=== PATIENT | male | born 1930 | race Caucasian/White ===

== ENCOUNTER 2017-11-04 17:50 | Inpatient (IN) | payer OTHER ==
[~2017-11-04] VITALS: Ht 172.7 cm; Wt 83.9 kg
[2017-11-04 17:56] VITALS: BP_SYST 134
[2017-11-04] MEDS ORDERED: NITROGLYCERIN 0.4 MG TAB.SUBL SL ONE ×2 (18:15→20:45)
[2017-11-04] MEDS ORDERED: ASPIRIN 325 MG TABLET PO ONE ×2 (18:15→20:45)
[2017-11-04 18:28] LABS: BASOPHILS % (AUTO) 0.3 % (0.0-2.0); EOSINOPHILS # (AUTO) 0.1 K/uL (0.0-0.4); EOSINOPHILS % (AUTO) 0.5 % (0.0-4.0); HEMATOCRIT 37.4 % (36-54); HEMOGLOBIN 12.5 g/dL (14.0-18.0); LYMPHOCYTES # (AUTO) 1.9 K/uL (1.0-5.5); LYMPHOCYTES % (AUTO) 17.1 % (20.5-51.5); MEAN CORPUSCULAR HEMOGLOBIN 29 pg (27-31); MEAN CORPUSCULAR HGB CONC 33 % (32-36); MEAN CORPUSCULAR VOLUME 88 fL (79.0-98.0); MONOCYTES # (AUTO) 0.6 K/uL (0.0-1.0); MONOCYTES % (AUTO) 5.1 % (1.7-9.3); NEUTROPHILS # (AUTO) 8.2 K/uL (1.8-7.7); PLATELET COUNT (AUTO) 304 K/uL (130-430); RED BLOOD CELL COUNT(AUTO) 4.24 MIL/uL (4.2-6.2); RED CELL DISTRIBUTION WIDTH 15.4 % (9.0-15.0); WHITE BLOOD COUNT (AUTO) 10.8 K/uL (4.8-10.8)
[2017-11-04 18:44] LABS: ANION GAP 5 (5-15); CHLORIDE 105 mmol/L (98-107); CREATININE 1.17 mg/dL (0.55-1.30); GLUCOSE 155 mg/dL (70-99); SODIUM SERUM 139 mmol/L (136-145); UREA NITROGEN, BLOOD 18 mg/dL (8-21)
[2017-11-04 18:50] LABS: ALANINE AMINOTRANSFERASE 24 U/L (12-78); ASPARTATE AMINOTRANSFERASE 19 U/L (10-37); INR 1.1 (0.80-1.20); PROTHROMBIN TIME 10.7 SECS (9.5-12.5); TOTAL BILIRUBIN 0.4 mg/dL (0.0-1.0)
[2017-11-04] MEDS ORDERED: CLOPIDOGREL BISULFATE 75 MG TABLET PO ONE (19:45)
[2017-11-04] MEDS ORDERED: ENOXAPARIN SODIUM 80 MG/0.8 ML SYRINGE SUBCUT ONE (19:45)
[2017-11-04 19:53] LABS: CHOLESTEROL 106 mg/dL (<200); HDL CHOLESTEROL 35 mg/dL (>45); LDL CHOLESTEROL 55 mg/dL (<100); TRIGLYCERIDES 123 mg/dL (30-150)
[2017-11-04] MEDS ORDERED: ASPI-1063 PO (20:32)
[2017-11-04] MEDS ORDERED: LIP40 PO (20:33)
[2017-11-04] MEDS ORDERED: BRIN10DR EACH EYE (20:33)
[2017-11-04] MEDS ORDERED: FERR-57 PO (20:34)
[2017-11-04] MEDS ORDERED: FINA5TAB3 PO (20:34)
[2017-11-04] MEDS ORDERED: TAMS-11 PO (20:37)
[2017-11-04] MEDS ORDERED: GLIM2TAB2 PO (20:38)
[2017-11-04] MEDS ORDERED: HYDR-1115 PO (20:38)
[2017-11-04] MEDS ORDERED: ISOS30TA6 PO (20:39)
[2017-11-04] MEDS ORDERED: NITSL SL (20:40)
[2017-11-04] MEDS ORDERED: ONDA4TAB5 PO (20:41)
[2017-11-04] MEDS ORDERED: CLOP75TA2 PO (20:42)
[2017-11-04] MEDS ORDERED: SITA50TA3 PO (20:43)
[2017-11-04] MEDS ORDERED: TIMO5DRO16 OP (20:43)
[2017-11-04] MEDS ORDERED: TRAM50TA92 PO (20:44)
[2017-11-04] MEDS ORDERED: ACET-2165 PO ×2 (20:45→20:46)
[2017-11-04] MEDS ORDERED: SSREG SUBCUT (20:59)
[2017-11-04 21:10] VITALS: BP_SYST 162
[2017-11-04] MEDS ORDERED: POTASSIUM CHLORIDE 20 MEQ TAB.PRT.SR PO ONE (21:30)
[2017-11-04] MEDS ORDERED: traMADol HCL HCL 50 MG TABLET (ULTRAM) PO PRN (21:30)
[2017-11-04] MEDS ORDERED: ONDANSETRON HCL 4 MG/2 ML VIAL IVP PRN (21:30)
[2017-11-04] MEDS ORDERED: ACETAMINOPHEN 325 MG TABLET PO PRN (21:30)
[2017-11-04] MEDS ORDERED: NITROGLYCERIN 0.4 MG TAB.SUBL SL PRN (21:30)
[2017-11-04] MEDS ORDERED: INSULIN REGULAR, HUMAN 100 UNITS/ML, 10 ML VIAL (novoLIN R) SUBCUT PRN (21:45)
[2017-11-04] MEDS: METOPROLOL TARTRATE 25 MG TABLET PO SCH (21:45)
[2017-11-04] MEDS: NITROGLYCERIN 1 INCH (GM) OINT. TP SCH (22:00)
[2017-11-04] MEDS ORDERED: METOPROLOL TARTRATE 25 MG TABLET ONE (23:41)
[2017-11-04] MEDS ORDERED: NITROGLYCERIN 1 INCH (GM) OINT. ONE (23:42)
[2017-11-04] MEDS ORDERED: POTASSIUM CHLORIDE 20 MEQ TAB.PRT.SR ONE (23:43)
[2017-11-05 02:06] VITALS: BP_SYST 162
[2017-11-05] MEDS: NITROGLYCERIN 1 INCH (GM) OINT. TP SCH ×3 (05:37→22:10)
[2017-11-05 05:51] LABS: BASOPHILS # (AUTO) 0.1 K/uL (0.0-0.2); EOSINOPHILS # (AUTO) 0.1 K/uL (0.0-0.4); EOSINOPHILS % (AUTO) 0.9 % (0.0-4.0); HEMATOCRIT 39.8 % (36-54); HEMOGLOBIN 12.9 g/dL (14.0-18.0); LYMPHOCYTES # (AUTO) 2.2 K/uL (1.0-5.5); LYMPHOCYTES % (AUTO) 35.7 % (20.5-51.5); MEAN CORPUSCULAR HEMOGLOBIN 29 pg (27-31); MEAN CORPUSCULAR HGB CONC 32 % (32-36); MEAN CORPUSCULAR VOLUME 88 fL (79.0-98.0); MONOCYTES # (AUTO) 0.6 K/uL (0.0-1.0); MONOCYTES % (AUTO) 9.3 % (1.7-9.3); NEUTROPHILS # (AUTO) 3.2 K/uL (1.8-7.7); NEUTROPHILS % (AUTO) 52.1 % (40.0-70.0); PLATELET COUNT (AUTO) 289 K/uL (130-430); RED BLOOD CELL COUNT(AUTO) 4.52 MIL/uL (4.2-6.2); RED CELL DISTRIBUTION WIDTH 15.7 % (9.0-15.0); WHITE BLOOD COUNT (AUTO) 6.3 K/uL (4.8-10.8)
[2017-11-05 05:53] LABS: ANION GAP 5 (5-15); CALCIUM 8.8 mg/dL (8.4-11.0); CHLORIDE 107 mmol/L (98-107); CREATININE 1.08 mg/dL (0.55-1.30); GLUCOSE 61 mg/dL (70-99); POTASSIUM 3.3 mmol/L (3.5-5.1); SODIUM SERUM 140 mmol/L (136-145); UREA NITROGEN, BLOOD 15 mg/dL (8-21)
[2017-11-05] MEDS ORDERED: DEXTROSE 50% JECT 50 ML DISP.SYRIN IVP PRN (06:15)
[2017-11-05 08:10] VITALS: BP_SYST 157
[2017-11-05] MEDS: hydrALAZINE HCL 25 MG TABLET PO SCH ×4 (08:34→22:09)
[2017-11-05] MEDS: METOPROLOL TARTRATE 25 MG TABLET PO SCH ×2 (08:35→22:09)
[2017-11-05] MEDS: ASPIRIN 81 MG TABLET(ECOTRIN) PO SCH (08:35)
[2017-11-05] MEDS: GLIMEPIRIDE 2 MG TABLET PO SCH (08:35)
[2017-11-05] MEDS: TIMOLOL MALEATE 0.25% OPHTHALMIC DROPS 5 ML OP SCH ×2 (08:36→22:17)
[2017-11-05] MEDS: FERROUS SULFATE 325 MG TABLET.DR PO SCH ×2 (08:36→22:10)
[2017-11-05] MEDS: FINASTERIDE 5 MG TABLET (PROSCAR) PO SCH (08:36)
[2017-11-05] MEDS: DORZOLAMIDE 2% OPHTHALMIC SOLN 5ML OP SCH ×3 (08:37→22:17)
[2017-11-05] MEDS ORDERED: *LOVENOX 1MG/KG Q12H/PHARMACY XX PRN (08:45)
[2017-11-05] MEDS ORDERED: POTASSIUM CHLORIDE 20 MEQ TAB.PRT.SR PO ONE (08:45)
[2017-11-05] MEDS ORDERED: BRINZOLAMIDE 1% EACH EYE SCH (09:00)
[2017-11-05] MEDS ORDERED: ENOXAPARIN SODIUM 30 MG/0.3 ML SYRINGE SUBCUT SCH (09:00)
[2017-11-05] MEDS ORDERED: CLOPIDOGREL BISULFATE 75 MG TABLET PO SCH (09:00)
[2017-11-05] MEDS ORDERED: ENOXAPARIN SODIUM 80 MG/0.8 ML SYRINGE SUBCUT ONE (09:30)
[2017-11-05 11:01] LABS: BILIRUBIN,URINE NEGATIVE (NEGATIVE); BLOOD, URINE 3+ (NEGATIVE); CLARITY/URINE HAZY (CLEAR); COLOR,URINE RED (YELLOW); GLUCOSE,URINE NEGATIVE (NEGATIVE); KETONES,URINE TRACE (NEGATIVE); LEUKOCYTE ESTERASE ,URINE 1+ (NEGATIVE); NITRITE, URINE POSITIVE (NEGATIVE); PH,URINE 6.5 (5.0-8.0); PROTEIN URINE 3+ (NEGATIVE)
[2017-11-05 11:18] LABS: RBC,URINE >100 /HPF (0-3)
[2017-11-05 11:19] LABS: BACTERIA,URINE FEW /HPF (None Seen); MUCUS,URINE None Seen /LPF (None Seen); WBC,URINE 0-3 /HPF (0-3)
[2017-11-05 12:52] VITALS: BP_SYST 123
[2017-11-05 16:00] VITALS: BP_SYST 127
[2017-11-05] MEDS ORDERED: DIATR MEGLU/DIATRIZ SOD 30 ML SOLUTION PO ONE (17:38)
[2017-11-05] MEDS ORDERED: IOHEXOL 100 ML IV ONE (19:00)
[2017-11-05 19:19] LABS: BILIRUBIN,URINE NEGATIVE (NEGATIVE); BLOOD, URINE 3+ (NEGATIVE); CLARITY/URINE SL CLOUDY (CLEAR); COLOR,URINE YELLOW (YELLOW); GLUCOSE,URINE NEGATIVE (NEGATIVE); KETONES,URINE NEGATIVE (NEGATIVE); LEUKOCYTE ESTERASE ,URINE 2+ (NEGATIVE); NITRITE, URINE NEGATIVE (NEGATIVE); PROTEIN URINE 2+ (NEGATIVE); UROBILINOGEN,URINE 0.2 (0.2-1.0)
[2017-11-05 19:44] LABS: BACTERIA,URINE FEW /HPF (None Seen); RBC,URINE >100 /HPF (0-3); WBC,URINE 20-50 /HPF (0-3)
[2017-11-05 19:45] LABS: MUCUS,URINE 1+ /LPF (None Seen)
[2017-11-05 19:46] LABS: URIC ACID CRYSTALS,URINE 0-10 /HPF (None Seen)
[2017-11-05] MEDS ORDERED: ENOXAPARIN SODIUM 80 MG/0.8 ML SYRINGE SUBCUT SCH (21:00)
[2017-11-05] MEDS: TAMSULOSIN HCL 0.4 MG CAP PO SCH (22:08)
[2017-11-05] MEDS: ATORVASTATIN 20 MG TABLET PO SCH (22:10)
[2017-11-06 00:20] VITALS: BP_SYST 147
[2017-11-06] MEDS: NITROGLYCERIN 1 INCH (GM) OINT. TP SCH ×3 (06:05→22:45)
[2017-11-06 08:06] LABS: BASOPHILS % (AUTO) 0.3 % (0.0-2.0); EOSINOPHILS % (AUTO) 0.5 % (0.0-4.0); HEMATOCRIT 36.7 % (36-54); HEMOGLOBIN 12.1 g/dL (14.0-18.0); LYMPHOCYTES # (AUTO) 2.2 K/uL (1.0-5.5); LYMPHOCYTES % (AUTO) 26.2 % (20.5-51.5); MEAN CORPUSCULAR HEMOGLOBIN 30 pg (27-31); MEAN CORPUSCULAR HGB CONC 33 % (32-36); MEAN CORPUSCULAR VOLUME 89 fL (79.0-98.0); MONOCYTES # (AUTO) 0.7 K/uL (0.0-1.0); MONOCYTES % (AUTO) 8.1 % (1.7-9.3); NEUTROPHILS # (AUTO) 5.5 K/uL (1.8-7.7); NEUTROPHILS % (AUTO) 64.9 % (40.0-70.0); PLATELET COUNT (AUTO) 290 K/uL (130-430); RED BLOOD CELL COUNT(AUTO) 4.11 MIL/uL (4.2-6.2); RED CELL DISTRIBUTION WIDTH 15.5 % (9.0-15.0); WHITE BLOOD COUNT (AUTO) 8.4 K/uL (4.8-10.8)
[2017-11-06 08:11] VITALS: BP_SYST 124
[2017-11-06 08:13] LABS: ALANINE AMINOTRANSFERASE 25 U/L (12-78); ALBUMIN 2.9 g/dL (3.4-4.8); ANION GAP 8 (5-15); ASPARTATE AMINOTRANSFERASE 23 U/L (10-37); CALCIUM 9.1 mg/dL (8.4-11.0); CHLORIDE 104 mmol/L (98-107); CHOLESTEROL 116 mg/dL (<200); CREATININE 1.02 mg/dL (0.55-1.30); GLUCOSE 95 mg/dL (70-99); HDL CHOLESTEROL 38 mg/dL (>45); LDL CHOLESTEROL 61 mg/dL (<100); POTASSIUM 3.5 mmol/L (3.5-5.1); SODIUM SERUM 137 mmol/L (136-145); TOTAL BILIRUBIN 0.4 mg/dL (0.0-1.0); TRIGLYCERIDES 112 mg/dL (30-150); UREA NITROGEN, BLOOD 10 mg/dL (8-21)
[2017-11-06] MEDS: ASPIRIN 81 MG TABLET(ECOTRIN) PO SCH (09:47)
[2017-11-06] MEDS: DORZOLAMIDE 2% OPHTHALMIC SOLN 5ML OP SCH ×3 (09:47→21:00)
[2017-11-06] MEDS: FINASTERIDE 5 MG TABLET (PROSCAR) PO SCH (09:47)
[2017-11-06] MEDS: TIMOLOL MALEATE 0.25% OPHTHALMIC DROPS 5 ML OP SCH ×2 (09:47→21:00)
[2017-11-06] MEDS: GLIMEPIRIDE 2 MG TABLET PO SCH (09:48)
[2017-11-06] MEDS: FERROUS SULFATE 325 MG TABLET.DR PO SCH ×2 (09:48→22:03)
[2017-11-06] MEDS: hydrALAZINE HCL 25 MG TABLET PO SCH ×4 (09:49→22:03)
[2017-11-06] MEDS: METOPROLOL TARTRATE 25 MG TABLET PO SCH ×2 (09:49→22:03)
[2017-11-06 12:24] VITALS: BP_SYST 112
[2017-11-06 16:28] VITALS: BP_SYST 90
[2017-11-06 20:00] VITALS: BP_SYST 133
[2017-11-06] MEDS: ATORVASTATIN 20 MG TABLET PO SCH (22:04)
[2017-11-06] MEDS: TAMSULOSIN HCL 0.4 MG CAP PO SCH (22:04)
[2017-11-07 00:57] VITALS: BP_SYST 129
[2017-11-07] MEDS: NITROGLYCERIN 1 INCH (GM) OINT. TP SCH ×3 (06:15→22:01)
[2017-11-07 07:53] LABS: ANION GAP 8 (5-15); CALCIUM 8.9 mg/dL (8.4-11.0); CHLORIDE 103 mmol/L (98-107); CREATININE 1.02 mg/dL (0.55-1.30); GLUCOSE 91 mg/dL (70-99); POTASSIUM 3.5 mmol/L (3.5-5.1); SODIUM SERUM 137 mmol/L (136-145); UREA NITROGEN, BLOOD 16 mg/dL (8-21)
[2017-11-07 08:00] VITALS: BP_SYST 113
[2017-11-07 08:06] LABS: % FREE PSA 29.9 % (.); FREE PSA 3.38 ng/mL
[2017-11-07 08:47] LABS: BASOPHILS % (AUTO) 0.4 % (0.0-2.0); EOSINOPHILS # (AUTO) 0.1 K/uL (0.0-0.4); EOSINOPHILS % (AUTO) 0.8 % (0.0-4.0); HEMATOCRIT 33.1 % (36-54); HEMOGLOBIN 10.8 g/dL (14.0-18.0); LYMPHOCYTES # (AUTO) 2.5 K/uL (1.0-5.5); LYMPHOCYTES % (AUTO) 28.9 % (20.5-51.5); MEAN CORPUSCULAR HEMOGLOBIN 29 pg (27-31); MEAN CORPUSCULAR HGB CONC 33 % (32-36); MEAN CORPUSCULAR VOLUME 88 fL (79.0-98.0); MONOCYTES # (AUTO) 0.7 K/uL (0.0-1.0); MONOCYTES % (AUTO) 7.9 % (1.7-9.3); NEUTROPHILS # (AUTO) 5.3 K/uL (1.8-7.7); PLATELET COUNT (AUTO) 255 K/uL (130-430); RED BLOOD CELL COUNT(AUTO) 3.76 MIL/uL (4.2-6.2); RED CELL DISTRIBUTION WIDTH 15.8 % (9.0-15.0); WHITE BLOOD COUNT (AUTO) 8.6 K/uL (4.8-10.8)
[2017-11-07] MEDS: DORZOLAMIDE 2% OPHTHALMIC SOLN 5ML OP SCH ×3 (11:05→21:58)
[2017-11-07] MEDS: TIMOLOL MALEATE 0.25% OPHTHALMIC DROPS 5 ML OP SCH ×2 (11:06→21:58)
[2017-11-07] MEDS: FERROUS SULFATE 325 MG TABLET.DR PO SCH ×2 (11:06→21:58)
[2017-11-07] MEDS: METOPROLOL TARTRATE 25 MG TABLET PO SCH ×2 (11:07→21:59)
[2017-11-07] MEDS: GLIMEPIRIDE 2 MG TABLET PO SCH (11:07)
[2017-11-07] MEDS: ASPIRIN 81 MG TABLET(ECOTRIN) PO SCH (11:07)
[2017-11-07] MEDS: FINASTERIDE 5 MG TABLET (PROSCAR) PO SCH (11:07)
[2017-11-07] MEDS: hydrALAZINE HCL 25 MG TABLET PO SCH ×4 (11:08→21:59)
[2017-11-07 12:36] VITALS: BP_SYST 111
[2017-11-07] MEDS ORDERED: CIPROFLOXACIN HCL 500 MG TABLET PO ONE (13:00)
[2017-11-07 16:21] VITALS: BP_SYST 117
[2017-11-07 20:00] VITALS: BP_SYST 108
[2017-11-07] MEDS: CIPROFLOXACIN HCL 500 MG TABLET PO SCH (22:00)
[2017-11-07] MEDS: TAMSULOSIN HCL 0.4 MG CAP PO SCH (22:00)
[2017-11-07] MEDS: ATORVASTATIN 20 MG TABLET PO SCH (22:01)
[2017-11-07 23:56] VITALS: BP_SYST 112
[2017-11-08] MEDS: NITROGLYCERIN 1 INCH (GM) OINT. TP SCH ×3 (05:25→21:04)
[2017-11-08 07:12] LABS: ANION GAP 5 (5-15); CALCIUM 9.1 mg/dL (8.4-11.0); CHLORIDE 105 mmol/L (98-107); GLUCOSE 96 mg/dL (70-99); POTASSIUM 3.7 mmol/L (3.5-5.1); SODIUM SERUM 139 mmol/L (136-145); UREA NITROGEN, BLOOD 17 mg/dL (8-21)
[2017-11-08 07:34] LABS: BASOPHILS % (AUTO) 0.2 % (0.0-2.0); EOSINOPHILS # (AUTO) 0.1 K/uL (0.0-0.4); EOSINOPHILS % (AUTO) 1.4 % (0.0-4.0); HEMATOCRIT 31.8 % (36-54); HEMOGLOBIN 10.7 g/dL (14.0-18.0); LYMPHOCYTES # (AUTO) 2.3 K/uL (1.0-5.5); LYMPHOCYTES % (AUTO) 35.8 % (20.5-51.5); MEAN CORPUSCULAR HEMOGLOBIN 30 pg (27-31); MEAN CORPUSCULAR HGB CONC 34 % (32-36); MEAN CORPUSCULAR VOLUME 88 fL (79.0-98.0); MONOCYTES # (AUTO) 0.6 K/uL (0.0-1.0); MONOCYTES % (AUTO) 9.1 % (1.7-9.3); NEUTROPHILS # (AUTO) 3.4 K/uL (1.8-7.7); NEUTROPHILS % (AUTO) 53.5 % (40.0-70.0); PLATELET COUNT (AUTO) 234 K/uL (130-430); RED CELL DISTRIBUTION WIDTH 15.8 % (9.0-15.0); WHITE BLOOD COUNT (AUTO) 6.4 K/uL (4.8-10.8)
[2017-11-08 07:56] VITALS: BP_SYST 122
[2017-11-08] MEDS: hydrALAZINE HCL 25 MG TABLET PO SCH ×4 (08:09→20:53)
[2017-11-08] MEDS: FINASTERIDE 5 MG TABLET (PROSCAR) PO SCH (08:10)
[2017-11-08] MEDS: FERROUS SULFATE 325 MG TABLET.DR PO SCH ×2 (08:10→20:52)
[2017-11-08] MEDS: ASPIRIN 81 MG TABLET(ECOTRIN) PO SCH (08:10)
[2017-11-08] MEDS: METOPROLOL TARTRATE 25 MG TABLET PO SCH (08:11)
[2017-11-08] MEDS: GLIMEPIRIDE 2 MG TABLET PO SCH (08:15)
[2017-11-08] MEDS: DORZOLAMIDE 2% OPHTHALMIC SOLN 5ML OP SCH ×3 (08:16→20:53)
[2017-11-08] MEDS: TIMOLOL MALEATE 0.25% OPHTHALMIC DROPS 5 ML OP SCH ×2 (08:16→20:53)
[2017-11-08 12:54] VITALS: BP_SYST 98
[2017-11-08] MEDS: CIPROFLOXACIN HCL 500 MG TABLET PO SCH ×2 (13:27→21:03)
[2017-11-08 15:55] VITALS: BP_SYST 109
[2017-11-08 20:00] VITALS: BP_SYST 128
[2017-11-08] MEDS: TAMSULOSIN HCL 0.4 MG CAP PO SCH (20:52)
[2017-11-08] MEDS: ATORVASTATIN 20 MG TABLET PO SCH (20:52)
[2017-11-09 00:19] VITALS: BP_SYST 138
[2017-11-09 04:30] VITALS: BP_SYST 144
[2017-11-09] MEDS: NITROGLYCERIN 1 INCH (GM) OINT. TP SCH ×3 (06:04→21:20)
[2017-11-09 08:00] VITALS: BP_SYST 98
[2017-11-09] MEDS: hydrALAZINE HCL 25 MG TABLET PO SCH ×4 (08:56→21:18)
[2017-11-09] MEDS: GLIMEPIRIDE 2 MG TABLET PO SCH (08:56)
[2017-11-09] MEDS: FERROUS SULFATE 325 MG TABLET.DR PO SCH ×2 (08:56→21:17)
[2017-11-09] MEDS: FINASTERIDE 5 MG TABLET (PROSCAR) PO SCH (08:56)
[2017-11-09] MEDS: ASPIRIN 81 MG TABLET(ECOTRIN) PO SCH (08:56)
[2017-11-09] MEDS: TIMOLOL MALEATE 0.25% OPHTHALMIC DROPS 5 ML OP SCH ×2 (08:57→21:15)
[2017-11-09] MEDS: DORZOLAMIDE 2% OPHTHALMIC SOLN 5ML OP SCH ×3 (08:57→21:16)
[2017-11-09] MEDS: CIPROFLOXACIN HCL 500 MG TABLET PO SCH ×2 (11:28→21:17)
[2017-11-09 13:09] VITALS: BP_SYST 106
[2017-11-09 15:04] LABS: PROSTATE SPECIFIC AG TOTAL 11.3 ng/mL (0.0-4.0)
[2017-11-09 16:18] VITALS: BP_SYST 118
[2017-11-09] MEDS: ATORVASTATIN 20 MG TABLET PO SCH (21:17)
[2017-11-09] MEDS: TAMSULOSIN HCL 0.4 MG CAP PO SCH (21:18)
[2017-11-10 01:20] VITALS: BP_SYST 118
[2017-11-10] MEDS: NITROGLYCERIN 1 INCH (GM) OINT. TP SCH ×2 (06:19→13:52)
[2017-11-10 08:25] VITALS: BP_SYST 152
[2017-11-10] MEDS: FINASTERIDE 5 MG TABLET (PROSCAR) PO SCH (08:46)
[2017-11-10] MEDS: TIMOLOL MALEATE 0.25% OPHTHALMIC DROPS 5 ML OP SCH (08:46)
[2017-11-10] MEDS: DORZOLAMIDE 2% OPHTHALMIC SOLN 5ML OP SCH ×2 (08:46→15:15)
[2017-11-10] MEDS: hydrALAZINE HCL 25 MG TABLET PO SCH ×3 (08:47→17:00)
[2017-11-10] MEDS: FERROUS SULFATE 325 MG TABLET.DR PO SCH (08:47)
[2017-11-10] MEDS: ASPIRIN 81 MG TABLET(ECOTRIN) PO SCH (08:47)
[2017-11-10] MEDS: GLIMEPIRIDE 2 MG TABLET PO SCH (08:48)
[2017-11-10] MEDS: CIPROFLOXACIN HCL 500 MG TABLET PO SCH (10:29)
[2017-11-10 12:02] VITALS: BP_SYST 104
[2017-11-10 16:07] VITALS: BP_SYST 113
[2017-11-10 16:16] VITALS: BP_SYST 113
== END 2017-11-10 19:00 | DRG 281 ==
LOC: SED 17:50 → STU 19:54
PROVIDERS: ADMIT Internal Medicine; ATTEND Internal Medicine
DX: I21.4 Non-ST elevation (NSTEMI) myocardial infarction (principal); E44.0 Moderate protein-calorie malnutrition; E11.40 Type 2 diabetes mellitus with diabetic neuropathy, unspecified; E11.51 Type 2 diabetes mellitus with diabetic peripheral angiopathy without gangrene; I65.23 Occlusion and stenosis of bilateral carotid arteries; I44.1 Atrioventricular block, second degree; I69.351 Hemiplegia and hemiparesis following cerebral infarction affecting right dominant side; N40.0 Benign prostatic hyperplasia without lower urinary tract symptoms; E78.5 Hyperlipidemia, unspecified; I10 Essential (primary) hypertension; F03.90 Unspecified dementia, unspecified severity, without behavioral disturbance, psychotic disturbance, mood disturbance, and anxiety; H40.9 Unspecified glaucoma; I35.0 Nonrheumatic aortic (valve) stenosis; R31.0 Gross hematuria; I25.10 Atherosclerotic heart disease of native coronary artery without angina pectoris; H54.8 Legal blindness, as defined in USA; I25.2 Old myocardial infarction; Z79.82 Long term (current) use of aspirin; Z79.02 Long term (current) use of antithrombotics/antiplatelets; Z79.899 Other long term (current) drug therapy; Z83.3 Family history of diabetes mellitus; Z79.4 Long term (current) use of insulin; Z68.28 Body mass index [BMI] 28.0-28.9, adult
CPT/HCPCS: 36415; 71010; 80048; 80053; 80061; 81000-TC; 82550-TC; 82962; 83880; 84153; 84484; 85025; 85610-TC; 85730-TC; 87081; 87086; 87186-TC; 93005; 93306; 96372; 97530-GP; 99285; J1650; J1815; J2405; Q9964; Q9967

== ENCOUNTER 2020-01-02 01:14 | Emergency (ER) | payer OTHER, MEDICAID ==
[~2020-01-02] VITALS: Ht 172.7 cm; Wt 74.8 kg
[~2020-01-02 01:14] MED LIST: ACET-2165 PO; ASPI-1153 PO; BRIN10DR EACH EYE; CLOP75TA2 PO; FERR-57 PO; FINA5TAB3 PO; GLIM2TAB2 PO; HYDR-4038 PO; ISOS30TA6 PO; LIP40 PO; NITSL SL; ONDA4TAB5 PO; SITA50TA3 PO; SSREG SUBCUT; TAMS-11 PO; TIMO5DRO16 OP; TRAM50TA92 PO
[2020-01-02 01:20] VITALS: BP_SYST 115
--- NOTE | 2020-01-02 02:51 | NUR ---
Placed in room 01 . Placed on precise winder, blood pressure machine and pulse oximeter. To gown for exam. Side rails up.
--- NOTE | 2020-01-02 03:20 | NUR ---
Patient AAO x 4 BIB BLS from [facility] with complaints of 7/10 urethral pain and hematuria. Barakat catheter was placed at approximately 2100 this evening. Urine output is around 200 mL in volume and appears red and cloudy. On inspection, there is no redness or swelling around urethra. Patient has history of HTN and DM2. Even chest and rise with respirations. Will continue to monitor.
--- NOTE | 2020-01-02 03:45 | NUR ---
ER Dr. Lamar at bedside examining patient.
[2020-01-02 04:55] VITALS: BP_SYST 135
[2020-01-02 05:03] LABS: BILIRUBIN,URINE 2+ (NEGATIVE); BLOOD, URINE 3+ (NEGATIVE); CLARITY/URINE CLOUDY (CLEAR); COLOR,URINE YELLOW (YELLOW); GLUCOSE,URINE NEGATIVE (NEGATIVE); KETONES,URINE TRACE (NEGATIVE); LEUKOCYTE ESTERASE ,URINE 3+ (NEGATIVE); NITRITE, URINE POSITIVE (NEGATIVE); PH,URINE 6.5 (5.0-8.0); PROTEIN URINE 3+ (NEGATIVE)
[2020-01-02 05:08] LABS: BACTERIA,URINE MANY /HPF (None Seen); MUCUS,URINE 2+ /LPF (None Seen); RBC,URINE >100 /HPF (0-3); WBC,URINE >100 /HPF (0-3)
[2020-01-02] MEDS ORDERED: cefTRIAXone 1 GM IVPB PREMIX 50 ML IV ONE (05:15)
[2020-01-02] MEDS ORDERED: cefTRIAXone 1 GM in LIDOCAINE 1%, 20 ML MDV 2.1 ML IM ONE (05:15)
--- NOTE | 2020-01-02 05:32 | NUR ---
Patient given written and verbal discharge instructions and verbalizes understanding. ER MD Lamar discussed with patient the results and treatment provided. Patient in stable condition. ID arm band removed. Rx of Keflex given. Patient educated on pain management and to follow up with PMD. Pain Scale 3. Opportunity for questions provided and answered. Medication side effect fact sheet provided.
--- NOTE | 2020-01-02 06:44 | NUR ---
Pt being transported back to [facility].
== END 2020-01-02 06:44 | disposition home or self-care (01) ==
LOC: SED 01:14
DX: N39.0 Urinary tract infection, site not specified (principal); N40.0 Benign prostatic hyperplasia without lower urinary tract symptoms; R31.9 Hematuria, unspecified; I10 Essential (primary) hypertension; E11.9 Type 2 diabetes mellitus without complications; Z79.82 Long term (current) use of aspirin; Z79.899 Other long term (current) drug therapy
CPT/HCPCS: 74176; 81000; 87086; 93005; 96372; 99285; J0696; J2001; 87186-TC

== ENCOUNTER 2020-01-24 01:37 | Emergency (ER) | payer OTHER, MEDICAID ==
[~2020-01-24] VITALS: Ht 185.4 cm; Wt 86.2 kg
[2020-01-24 01:37] VITALS: BP_SYST 118
[2020-01-24 03:16] LABS: BASOPHILS % (AUTO) 0.7 % (0.0-2.0); EOSINOPHILS # (AUTO) 0.1 K/uL (0.0-0.4); HEMATOCRIT 36.2 % (36-54); HEMOGLOBIN 11.6 g/dL (14.0-18.0); LYMPHOCYTES # (AUTO) 1.5 K/uL (1.0-5.5); LYMPHOCYTES % (AUTO) 32.5 % (20.5-51.5); MEAN CORPUSCULAR HEMOGLOBIN 26 pg (27-31); MEAN CORPUSCULAR HGB CONC 32 % (32-36); MEAN CORPUSCULAR VOLUME 82 fL (79.0-98.0); MONOCYTES # (AUTO) 0.5 K/uL (0.0-1.0); MONOCYTES % (AUTO) 10.5 % (1.7-9.3); NEUTROPHILS # (AUTO) 2.4 K/uL (1.8-7.7); NEUTROPHILS % (AUTO) 53.3 % (40.0-70.0); PLATELET COUNT (AUTO) 240 K/uL (130-430); RED CELL DISTRIBUTION WIDTH 23.1 % (9.0-15.0); WHITE BLOOD COUNT (AUTO) 4.5 K/uL (4.8-10.8)
[2020-01-24 03:27] LABS: ANION GAP 6 (5-15); CALCIUM 8.7 mg/dL (8.4-11.0); CHLORIDE 104 mmol/L (98-107); CREATININE 1.29 mg/dL (0.55-1.30); GLUCOSE 124 mg/dL (70-99); SODIUM SERUM 139 mmol/L (136-145); UREA NITROGEN, BLOOD 16 mg/dL (8-21)
[2020-01-24 03:54] LABS: BILIRUBIN,URINE NEGATIVE (NEGATIVE); BLOOD, URINE 2+ (NEGATIVE); CLARITY/URINE SL CLOUDY (CLEAR); COLOR,URINE YELLOW (YELLOW); GLUCOSE,URINE NEGATIVE (NEGATIVE); KETONES,URINE NEGATIVE (NEGATIVE); LEUKOCYTE ESTERASE ,URINE NEGATIVE (NEGATIVE); NITRITE, URINE POSITIVE (NEGATIVE); PROTEIN URINE NEGATIVE (NEGATIVE); UROBILINOGEN,URINE 0.2 (0.2-1.0)
[2020-01-24 04:00] LABS: BACTERIA,URINE MODERATE /HPF (None Seen); RBC,URINE 20-50 /HPF (0-3); WBC,URINE 0-3 /HPF (0-3)
[2020-01-24] MEDS ORDERED: POTASSIUM CHLORIDE 20 MEQ TAB.PRT.SR PO ONE (05:30)
[2020-01-24] MEDS ORDERED: KCL 40 mEq in 100 mL (PREMIX) 100 ML IV ONE (05:30)
[2020-01-24] MEDS ORDERED: NITROFURANTOIN MONOHYD/M-CRYST 100 MG CAPSULE PO ONE (05:30)
[2020-01-24] MEDS ORDERED: POTASSIUM CHLORIDE 20 MEQ/PKT PACKET PO ONE ×2 (05:45)
[2020-01-24] MEDS ORDERED: POTASSIUM CHLORIDE 20 MEQ/PKT PACKET ONE (05:53)
[2020-01-24 09:03] VITALS: BP_SYST 147
== END 2020-01-24 09:03 | disposition home or self-care (01) ==
LOC: SED 01:37
DX: T83.018A Breakdown (mechanical) of other urinary catheter, initial encounter (principal); R33.9 Retention of urine, unspecified; E11.9 Type 2 diabetes mellitus without complications; I10 Essential (primary) hypertension; Z79.899 Other long term (current) drug therapy; Z79.82 Long term (current) use of aspirin; Y92.89 Other specified places as the place of occurrence of the external cause
CPT/HCPCS: 36415; 80048; 81000-TC; 85025; 87086; 87186-TC; 99283

== ENCOUNTER 2020-08-23 17:36 | Inpatient (IN) | payer OTHER, MEDICAID, SELFPAY ==
[2020-08-23] VITALS (7 sets, daily range): BP systolic 63–111
[~2020-08-23] VITALS: Ht 182.9 cm; Wt 82.6 kg
[~2020-08-23 17:36] MED LIST changes: -ACET-2165 PO; +ACET325T PO; -ASPI-1153 PO; +ASPI-1393 PO; +GLIM2TAB PO; -GLIM2TAB2 PO
--- NOTE | 2020-08-23 17:36 | NUR ---
BROUGHT IN BY [facility], PLACED IN BED #1 AND ALL STAFF TO BEDSIDE. REPORT GIVEN TO SANDRA
--- NOTE | 2020-08-23 17:40 | NUR ---
PT BIB ACLS C/O ALTERED. PT GCS 6, SKIN PALE, NON-VERBAL, PALE, BILAT PUPILS PINPOINT, ARRIVED WITH [facility], GIVEN 1 DOSE OF NARCAN AND BREATHING TXGIVEN EN ROUTE. PER EMS PT HAD EMESIS TODAY, RECTAL BLEEDING AND NORAMLLY A&OX3.
--- NOTE | 2020-08-23 17:41 | NUR ---
PT ARRIVED WITH ZARATE IN PLACE AND LEFT ARM PIV #20
--- NOTE | 2020-08-23 17:44 | NUR ---
RT NOTES Pt was intubated with 7.5 ETT secured at 24cm lipline by ER Colorimetric changed to yellow, bilateral b/s/chestrise noted. Placed pt on vent AC 14 500 +5 100. Alarms are set and audible, sputum collected and endorsed to lab.
--- NOTE | 2020-08-23 17:48 | NUR ---
PT FULL CODE PER POLST. Patient medicated with 20mg ETOMIDATE of for sedation prior to placement of ET tube. Respiratory therapy at bedside prior to placement. Size ET tube placed by DR. SCHAFFER . Auscultation of breath sounds over bilateral chest wall. ET tube secured BY RT MEG PALACIOS PCXR ordered to check tube placement.
[2020-08-23] MEDS ORDERED: NOREPINEPHRINE 4 MG/4 ML VIAL IV ONE ×2 (18:00→22:49)
--- NOTE | 2020-08-23 18:02 | NUR ---
# 16 FR NG tube placed to RIGHT nare. Placement checked by auscultation of instilled air into stomach and aspiration of gastric contents. Tubing taped in place to prevent dislodging. Patient tolerated well, sedation given for intubation.
--- NOTE | 2020-08-23 18:06 | NUR ---
PROPOFOL TO 6.25 MCG/KG/MIN PER ORDER
[2020-08-23] MEDS ORDERED: PRO40 PO (18:10)
[2020-08-23] MEDS ORDERED: DORZ10DR20 OP (18:10)
[2020-08-23] MEDS ORDERED: PROPOFOL DRIP 100 ML IV ONE (18:10)
[2020-08-23] MEDS ORDERED: GLUC1KIT IM (18:10)
[2020-08-23] MEDS ORDERED: DOCU-144 PO (18:10)
[2020-08-23] MEDS ORDERED: UTI-STAT PO (18:10)
[2020-08-23] MEDS ORDERED: MULT-1089 PO (18:10)
[2020-08-23] MEDS ORDERED: NOR10 PO (18:10)
--- NOTE | 2020-08-23 18:10 | NUR ---
Medication reconciliation completed with information provided by EARL MARTÍNEZ. Any prior medication reconciliation on file was reviewed and corrected.
[2020-08-23] MEDS ORDERED: NACL 0.9% 1,000 ML IV ONE (18:15)
[2020-08-23] MEDS ORDERED: NACL 0.9% 2,000 ML IV ONE (18:15)
--- NOTE | 2020-08-23 18:15 | NUR ---
RT NOTES FIO2 TO 0.70 PER ABG RESULT, ER DR HILL.
[2020-08-23 18:18] LABS: BASOPHILS % (AUTO) 0.2 % (0.0-2.0); EOSINOPHILS % (AUTO) 0.1 % (0.0-4.0); HEMATOCRIT 33.6 % (36-54); HEMOGLOBIN 10.7 g/dL (14.0-18.0); LYMPHOCYTES # (AUTO) 0.5 K/uL (1.0-5.5); MEAN CORPUSCULAR HEMOGLOBIN 26 pg (27-31); MEAN CORPUSCULAR HGB CONC 32 % (32-36); MEAN CORPUSCULAR VOLUME 80 fL (79.0-98.0); MONOCYTES % (AUTO) 0.3 % (1.7-9.3); NEUTROPHILS # (AUTO) 5.5 K/uL (1.8-7.7); NEUTROPHILS % (AUTO) 91.4 % (40.0-70.0); PLATELET COUNT (AUTO) 251 K/uL (130-430); RED BLOOD CELL COUNT(AUTO) 4.19 MIL/uL (4.2-6.2); RED CELL DISTRIBUTION WIDTH 17.3 % (9.0-15.0)
[2020-08-23 18:24] LABS: ANION GAP 13 (5-15); CHLORIDE 106 mmol/L (98-107); CREATININE 2.02 mg/dL (0.55-1.30); GLUCOSE 163 mg/dL (70-99); SODIUM SERUM 140 mmol/L (136-145); UREA NITROGEN, BLOOD 23 mg/dL (8-21)
[2020-08-23 18:34] LABS: ALANINE AMINOTRANSFERASE 37 U/L (12-78); ALBUMIN 2.8 g/dL (3.4-4.8); ASPARTATE AMINOTRANSFERASE 59 U/L (10-37); TOTAL BILIRUBIN 0.6 mg/dL (0.0-1.0)
[2020-08-23 18:37] LABS: ALCOHOL, BLOOD < 3 mg/dL (<10)
[2020-08-23 18:41] LABS: POTASSIUM 2.9 mmol/L (3.5-5.1)
--- NOTE | 2020-08-23 19:01 | NUR ---
BP 81/54 MAP 64 NOREPINEPHERINE TO 4MCG/MIN
--- NOTE | 2020-08-23 19:15 | NUR ---
Jaren zhong in EDM - 08/23/20 at 1916 by SDEDTD BP 64/50 MAP 64 NOREPINEPHERINE TO 4MCG/MIN
--- NOTE | 2020-08-23 19:15 | NUR ---
P 64/50 MAP 55 NOREPINEPHERINE TO 6MCG/MIN
--- NOTE | 2020-08-23 19:15 | NUR ---
Jaren zhong in EDM - 08/23/20 at 1916 by SDEDTD P 64/50 MAP 55 NOREPINEPHERINE TO 4MCG/MIN
--- NOTE | 2020-08-23 19:25 | NUR ---
REPORT TO MARIELA MCINTOSH
[2020-08-23] MEDS: NOREPINEPHRINE BITARTRATE 32 MG in NS 218 ML IV PRN ×2 (19:41→21:49)
[2020-08-23] MEDS ORDERED: KCL 20 mEq in NS 1000 mL 1,000 ML IV ONE (19:45)
--- NOTE | 2020-08-23 20:05 | NUR ---
Pt remains in guarded condition, Dr. Hazel bedside for continuing eval
--- NOTE | 2020-08-23 20:58 | NUR ---
2nd lactic acid 7.4. Bill MCINTOSH notified
[2020-08-23] MEDS ORDERED: SODIUM BICARBONATE 8.4% JECT 100 MEQ in 0.45% NACL 1,000 ML IV SCH (21:00)
--- NOTE | 2020-08-23 21:00 | NUR ---
Titrating Levophed gtt to keep MAP above 65, currently at 16 mcg
[2020-08-23] MEDS ORDERED: cefTRIAXone 1 GM IVPB PREMIX 50 ML IV ONE ×2 (21:45→21:52)
--- NOTE | 2020-08-23 21:45 | NUR ---
RECEIVED FROM ER DEPT VIA JOSE R, AN 89 YO W MALE WITH DIAGNOSIS OF SEPTIC SHOCK AND ACUTE RENAL FAILURE. ORALLY INTUBATED. RIGHT NARES NGT CLAMPED. ZARATE CATH WITH BLOODY URINE NOTED. DR CHOUDHARY HERE, AWARE OF BLOODY URINE. ZARATE CATH DC'D. BLADDER SCAN DONE. CUDAY CATHETER INSERTED CONNECTED TO ZARATE BAG WITH LARGE AMOUNT OF DOMINGO URINE OBTAINED. BILATERAL SOFT WRIST RESTRAINTS IN PLACE. ON DIPRIVAN DRIP AT 10 MCG/KG/MIN. 1 MODERATE SOFT BROWN STOOL DEFECATED. CLEANED. FIDE CARE, ZARATE CARE, SKIN CARE, BACK CARE RENDERED. AFIB. ON LEVOPHED DRIP.
[2020-08-23] MEDS: KCL 20 mEq in D5NS 1000 mL 1,000 ML IV SCH ×2 (21:48→22:46)
--- NOTE | 2020-08-23 22:00 | NUR ---
Pt went to and from CT Scan, remains on IV gtts, well tolerated
--- NOTE | 2020-08-23 22:10 | NUR ---
DR. FUNMI WALSH ON UNIT AT THIS TIME. NEW ORDERS RECEIVED AND WILL BE CARRIED OUT ORDERED.
--- NOTE | 2020-08-23 22:10 | NUR ---
COUDE FC PT CAME ON UNIT WITH FC, CATHETER NOTED WITH MINIMAL BLOODY URINE. BLADDER SCAN PERFORMED AND 500 CC RESIDUAL NOTED IN BLADDER. DR. CHOUDHARY IS ON UNIT AND GAVE VERBAL ORDERS TO REMOVE ZARATE CATHETER AND INSERT A NEW ONE WITH COUDE TIP. WILL CARRY OUT ORDERED.
[2020-08-23] MEDS ORDERED: GLUCAGON,HUMAN RECOMBINANT 1 MG VIAL IM PRN (22:15)
[2020-08-23] MEDS ORDERED: NITROGLYCERIN 0.4 MG TAB.SUBL SL SCH (22:15)
--- NOTE | 2020-08-23 22:20 | NUR ---
Patient will be admitted to care of Dr. Gonzalez. Admitted to ICU unit. Will go to room ICU 7. Belongings list completed. Complete and up to date summary report printed. SBAR report to be given at bedside with opportunity for questions.
--- NOTE | 2020-08-23 22:20 | NUR ---
Transfer to ICU via ACLS protocol. Licensed nurse present. IV present no signs or symptoms of infiltration.
--- NOTE | 2020-08-23 22:30 | NUR ---
DR BUTTS HERE. LEVOPHED TITRATED. ORDERS GIVEN AND IMPLEMENTED.
[2020-08-23] MEDS: MEROPENEM 500 MG in NS 50 ML IV SCH (22:47)
[2020-08-23] MEDS ORDERED: MEROPENEM 500 MG VIAL IV ONE (22:54)
[2020-08-23] MEDS: PANTOPRAZOLE SODIUM 40 MG/VIAL (PROTONIX) IVP SCH (22:55)
[2020-08-23] MEDS ORDERED: KCL 20 mEq in D5NS 1000 mL 1,000 ML IV ONE (22:56)
[2020-08-23] MEDS ORDERED: SUCCINYLCHOLINE CHLORIDE 20 MG/ML(QUELICIN) IVP ONE (23:00)
[2020-08-23] MEDS ORDERED: ETOMIDATE 20 MG/ 10 ML VIAL (AMIDATE) IVP ONE (23:00)
[2020-08-23] MEDS ORDERED: VANCOMYCIN HCL 1 GM/NS PREMIX 250 ML IV ONE (23:00)
--- NOTE | 2020-08-23 23:04 | NUR ---
CONSULT: DR. BENJAMÍN BUTTS IS AT BEDSIDE FOR CONSULT AT THIS TIME. ORDERS RECEIVED AND WILL BE CARRIED OUT ORDERED.
[2020-08-23] MEDS ORDERED: PANTOPRAZOLE SODIUM 40 MG/VIAL (PROTONIX) ONE (23:14)
--- NOTE | 2020-08-23 23:30 | NUR ---
FIO2 DECREASED TO 50%.
[2020-08-24] VITALS (24 sets, daily range): BP systolic 59–129
--- NOTE | 2020-08-24 | NUR ---
ACCU-CHEK 103, NO INSULIN DUE PER SLIDING SCALE COV. BP LABILE, LEVOPHED TITRATED. CIRCULATION CHECK DONE, PULSES PALPABLE. ORAL CARE DONE. SUCTIONED.
[2020-08-24 00:34] LABS: INR 1.2 (0.80-1.20); PROTHROMBIN TIME 12.6 SECS (9.5-12.5)
[2020-08-24] MEDS ORDERED: NOREPINEPHRINE 4 MG/4 ML VIAL IV ONE (00:48)
--- NOTE | 2020-08-24 01:00 | NUR ---
ZARATE CARE. 1 SMEAR OF STOOL DEFECATED, CLEANED.
[2020-08-24] MEDS ORDERED: KCL 20 mEq in D5NS 1000 mL 1,000 ML IV ONE (01:04)
[2020-08-24] MEDS ORDERED: VANCOMYCIN HCL 1000 MG/VIAL IV ONE (01:04)
[2020-08-24] MEDS ORDERED: MEROPENEM 500 MG VIAL IV ONE (01:04)
[2020-08-24 01:07] LABS: CKMB RELATIVE INDEX 4.7 (0.0-2.9); CREATINE KINASE MB 70.3 ng/mL (0-3.6)
[2020-08-24] MEDS: INSULIN REGULAR, HUMAN 100 UNITS/ML, 10 ML VIAL (humuLIN R) SUBCUT PRN (01:07)
--- NOTE | 2020-08-24 01:28 | NUR ---
DR. BENJAMÍN WALSH PAGED AT THIS TIME REGARDING CRITICAL LABS. SPOKE WITH SANDRA AT THE EXCHANGE.
--- NOTE | 2020-08-24 01:33 | NUR ---
DR. BENJAMÍN WALSH CALLED BACK AND MADE AWARE OF LACTIC ACID 6.9 AND TROPONIN 1.279. PER EKG IN AM, CMP, MAG, PHOS IN AM, AND CONSULT DRY HOUSE OPERATOR DR. DIEZ. WILL CARRY OUT ORDERED.
--- NOTE | 2020-08-24 01:52 | NUR ---
CONSULTATION PAGED/CALLED: DR. SHAH Reason for Consultation: RENAL STONES Person Who was Notified: SANDRA Consulting Physician: DR. SHAH - DR. JARETH VALENTINO (LENS EDGER FOR DR. SHAH) Crab Butcher Specialty: UROLOGY Ordering Physician: DR. CHOUDHARY
--- NOTE | 2020-08-24 01:52 | NUR ---
CONSULTATION PAGED/CALLED: DR. VALENCIA Reason for Consultation: SEPSIS Person Who was Notified: SANDRA Consulting Physician: DR. VALENCIA Auto Emissions Technician Specialty: ID Ordering Physician: DR. CHOUDHARY
--- NOTE | 2020-08-24 01:52 | NUR ---
CONSULTATION PAGED/CALLED: DR. DIEZ Reason for Consultation: ELEVATED TROPONIN Person Who was Notified: SANDRA Consulting Physician: DR. DIEZ Yarn Dry Room Worker Specialty: CARDIO Ordering Physician: DR. BUTTS
[2020-08-24] MEDS: MEROPENEM 500 MG in NS 50 ML IV SCH (06:00)
--- NOTE | 2020-08-24 07:30 | NUR ---
Opening Note Received bedside report from endorsing RN for continuation of care. Received patient intubated and sedated, resting in bed. No signs or symptoms of acute distress noted. Fall and safety precautions in place.
[2020-08-24] MEDS ORDERED: NS 500 ML IV ONE (07:45)
--- NOTE | 2020-08-24 07:50 | NUR ---
Dr. Esparza at bedside examining patient. New orders received.
[2020-08-24 08:19] LABS: HEMATOCRIT 36.7 % (36-54); HEMOGLOBIN 11.6 g/dL (14.0-18.0); MEAN CORPUSCULAR HEMOGLOBIN 25 pg (27-31); MEAN CORPUSCULAR HGB CONC 32 % (32-36); MEAN CORPUSCULAR VOLUME 79 fL (79.0-98.0); PLATELET COUNT (AUTO) 199 K/uL (130-430); RED BLOOD CELL COUNT(AUTO) 4.62 MIL/uL (4.2-6.2); RED CELL DISTRIBUTION WIDTH 17.4 % (9.0-15.0); WHITE BLOOD COUNT (AUTO) 13.3 K/uL (4.8-10.8)
[2020-08-24] MEDS: ISOSORBIDE MONONITRATE 30 MG TAB.ER.24H PO SCH (08:40)
[2020-08-24] MEDS: DOCUSATE SODIUM 100 MG CAPSULE PO SCH (08:40)
[2020-08-24] MEDS: PANTOPRAZOLE SODIUM 40 MG/VIAL (PROTONIX) IVP SCH ×2 (08:40→20:54)
[2020-08-24] MEDS: FINASTERIDE 5 MG TABLET (PROSCAR) PO SCH (08:40)
[2020-08-24] MEDS: MULTIVITAMINS TAB 1 TABLET PO SCH (08:40)
[2020-08-24] MEDS: ASPIRIN 81 MG TABLET(ECOTRIN) PO SCH (08:40)
[2020-08-24] MEDS: DORZOLAMIDE 2% OPHTHALMIC SOLN 5ML OP SCH ×3 (08:41→20:30)
[2020-08-24 08:43] LABS: ALANINE AMINOTRANSFERASE 89 U/L (12-78); ALBUMIN 2.5 g/dL (3.4-4.8); ANION GAP 15 (5-15); ASPARTATE AMINOTRANSFERASE 102 U/L (10-37); CALCIUM 7.4 mg/dL (8.4-11.0); CHLORIDE 112 mmol/L (98-107); CREATININE 1.88 mg/dL (0.55-1.30); GLUCOSE 86 mg/dL (70-99); POTASSIUM 3.1 mmol/L (3.5-5.1); SODIUM SERUM 145 mmol/L (136-145); TOTAL BILIRUBIN 0.8 mg/dL (0.0-1.0); UREA NITROGEN, BLOOD 29 mg/dL (8-21)
--- NOTE | 2020-08-24 09:05 | NUR ---
Nutrition Update Mu Scale 15 noted. Pt admitted for septic shock. Diet: N/A BMI: 25.1 kg/m2 RD to follow per nutrition care standards.
--- NOTE | 2020-08-24 09:08 | NUR ---
2D ECHO 2D ECHO being done at bedside by color laboratory technician.
[2020-08-24] MEDS ORDERED: POTASSIUM CHLORIDE 20 MEQ/PKT PACKET PO ONE (09:15)
--- NOTE | 2020-08-24 09:19 | NUR ---
Spoke with Dr. Fernandez regarding ABG results. New orders received.
[2020-08-24] MEDS: KCL 20 mEq in D5NS 1000 mL 1,000 ML IV SCH ×3 (09:43→23:16)
[2020-08-24 09:52] LABS: CKMB RELATIVE INDEX 1.2 (0.0-2.9); CREATINE KINASE MB 16.6 ng/mL (0-3.6)
[2020-08-24] MEDS: PROPOFOL DRIP 100 ML IV PRN ×2 (10:54→23:18)
[2020-08-24 11:26] LABS: BAND % (MANUAL) 37 % (0-6); LYMPHOCYTES % (MANUAL) 2 % (20-46); MONOCYTES % (MANUAL) 3 % (0-11)
[2020-08-24 11:27] LABS: BASOPHILS % (MANUAL) 0 % (0-2); EOSINOPHILS % (MANUAL) 0 % (0-7); METAMYELOCYTES % 6 % (0-0)
[2020-08-24] MEDS: NOREPINEPHRINE BITARTRATE 32 MG in NS 218 ML IV PRN (12:40)
--- NOTE | 2020-08-24 12:55 | NUR ---
Dr. Ley in to see patient. New orders received.
--- NOTE | 2020-08-24 13:20 | NUR ---
Dr. Bird at bedside examining patient. No new orders.
--- NOTE | 2020-08-24 15:37 | NUR ---
PICC Line Placement PICC Line being done at bedside by PICC line RN.
[2020-08-24 16:48] LABS: BILIRUBIN,URINE 2+ (NEGATIVE); BLOOD, URINE 3+ (NEGATIVE); CLARITY/URINE TURBID (CLEAR); COLOR,URINE BROWN (YELLOW); GLUCOSE,URINE NEGATIVE (NEGATIVE); KETONES,URINE TRACE (NEGATIVE); LEUKOCYTE ESTERASE ,URINE 2+ (NEGATIVE); NITRITE, URINE POSITIVE (NEGATIVE); PH,URINE 8.5 (5.0-8.0); PROTEIN URINE 2+ (NEGATIVE)
[2020-08-24] MEDS: PIPERACILLIN/TAZO 2.25G/DEX-IS 50 ML IV SCH ×2 (17:01→23:50)
--- NOTE | 2020-08-24 17:40 | NUR ---
CHG/BM Patient had large soft BM. CHG bath given and pericare done, bed linens changed. Patient tolerated well. No signs or symptoms of acute distress noted.
[2020-08-24 17:47] LABS: BACTERIA,URINE MANY /HPF (None Seen); RBC,URINE >100 /HPF (0-3); TRIPLE PHOSPHATE CRYSTAL,UR 0-10 /HPF (None Seen); WBC,URINE >100 /HPF (0-3)
[2020-08-24 17:48] LABS: COARSE GRANULAR CASTS,URINE 0-10 /LPF (None Seen); URINE AMORPHOUS PHOSPHATES 4+ /HPF (None Seen)
--- NOTE | 2020-08-24 19:00 | NUR ---
Closing Note Endorsed bedside report to oncoming RN using SBAR approach for continuation of care.
--- NOTE | 2020-08-24 19:30 | NUR ---
Opening note: Report received from day RN. Assuming care now.
[2020-08-24] MEDS: ENOXAPARIN SODIUM 30 MG/0.3 ML SYRINGE SUBCUT SCH (20:53)
[2020-08-24] MEDS: TAMSULOSIN HCL 0.4 MG CAP PO SCH (20:54)
--- NOTE | 2020-08-24 22:00 | NUR ---
Dr Gonzalez at bedside. No new orders.
[2020-08-24] MEDS ORDERED: VANCOMYCIN HCL 1,000 MG in NS 250 ML IV SCH (23:00)
--- NOTE | 2020-08-24 23:00 | NUR ---
Dr Fernandez at bedside. Wants to begin tubefeeding. Order received and verified.
[2020-08-25] VITALS (35 sets, daily range): BP systolic 80–138
[2020-08-25 06:00] LABS: BASOPHILS % (AUTO) 0.1 % (0.0-2.0); EOSINOPHILS # (AUTO) 0.1 K/uL (0.0-0.4); EOSINOPHILS % (AUTO) 0.5 % (0.0-4.0); HEMATOCRIT 35.6 % (36-54); HEMOGLOBIN 11.3 g/dL (14.0-18.0); LYMPHOCYTES # (AUTO) 0.6 K/uL (1.0-5.5); LYMPHOCYTES % (AUTO) 3.6 % (20.5-51.5); MEAN CORPUSCULAR HEMOGLOBIN 25 pg (27-31); MEAN CORPUSCULAR HGB CONC 32 % (32-36); MEAN CORPUSCULAR VOLUME 79 fL (79.0-98.0); MONOCYTES # (AUTO) 1.1 K/uL (0.0-1.0); MONOCYTES % (AUTO) 6.7 % (1.7-9.3); NEUTROPHILS # (AUTO) 15.2 K/uL (1.8-7.7); PLATELET COUNT (AUTO) 114 K/uL (130-430); RED BLOOD CELL COUNT(AUTO) 4.49 MIL/uL (4.2-6.2); RED CELL DISTRIBUTION WIDTH 17.6 % (9.0-15.0)
[2020-08-25 06:02] LABS: ALANINE AMINOTRANSFERASE 64 U/L (12-78); ALBUMIN 2.2 g/dL (3.4-4.8); ANION GAP 15 (5-15); ASPARTATE AMINOTRANSFERASE 60 U/L (10-37); CALCIUM 7.1 mg/dL (8.4-11.0); CHLORIDE 112 mmol/L (98-107); CREATININE 2.18 mg/dL (0.55-1.30); GLUCOSE 189 mg/dL (70-99); POTASSIUM 4.7 mmol/L (3.5-5.1); SODIUM SERUM 146 mmol/L (136-145); TOTAL BILIRUBIN 0.7 mg/dL (0.0-1.0); UREA NITROGEN, BLOOD 40 mg/dL (8-21)
[2020-08-25] MEDS: PIPERACILLIN/TAZO 2.25G/DEX-IS 50 ML IV SCH ×3 (06:19→18:22)
[2020-08-25] MEDS: INSULIN REGULAR, HUMAN 100 UNITS/ML, 10 ML VIAL (humuLIN R) SUBCUT PRN ×3 (06:21→18:24)
[2020-08-25 07:50] LABS: NEUTROPHILS % (AUTO) 89.1 % (40.0-70.0)
--- NOTE | 2020-08-25 08:44 | NUR ---
Dr. Esparza at bedside examining patient. New orders received.
[2020-08-25] MEDS ORDERED: NS 500 ML IV ONE (08:45)
[2020-08-25] MEDS: PANTOPRAZOLE SODIUM 40 MG/VIAL (PROTONIX) IVP SCH ×2 (09:12→21:26)
[2020-08-25] MEDS: ASPIRIN 81 MG TABLET(ECOTRIN) PO SCH (09:12)
[2020-08-25] MEDS: ISOSORBIDE MONONITRATE 30 MG TAB.ER.24H PO SCH (09:13)
[2020-08-25] MEDS: DOCUSATE SODIUM 100 MG CAPSULE PO SCH (09:13)
[2020-08-25] MEDS: DORZOLAMIDE 2% OPHTHALMIC SOLN 5ML OP SCH ×3 (09:13→20:45)
[2020-08-25] MEDS: FINASTERIDE 5 MG TABLET (PROSCAR) PO SCH (09:13)
[2020-08-25] MEDS: MULTIVITAMINS TAB 1 TABLET PO SCH (09:13)
[2020-08-25] MEDS: KCL 20 mEq in D5NS 1000 mL 1,000 ML IV SCH ×3 (09:14→21:35)
--- NOTE | 2020-08-25 09:45 | NUR ---
ABG results relayed to Dr. Fernandez. With orders carried out. Will call RT for vent change.
--- NOTE | 2020-08-25 09:50 | NUR ---
RT NOTE: 0950 Pt placed on SIMV 12, PS 10, and PEEP [address] Fernandez. Pt is tolerating vent change well. Will draw ABG after 2 hours if pt tolerates setting. Addendum: 08/25/20 at 1013 by Lynn Reynolds RT Amended: Links added.
[2020-08-25] MEDS: PROPOFOL DRIP 100 ML IV PRN ×2 (10:50→21:34)
[2020-08-25] MEDS: NOREPINEPHRINE BITARTRATE 32 MG in NS 218 ML IV PRN (10:51)
--- NOTE | 2020-08-25 14:50 | NUR ---
Dr. Gonzalez at bedside examining patient. New orders received.
--- NOTE | 2020-08-25 14:54 | NUR ---
Dietitian Recommendations * Recommend continuing Glucerna 1.2 at 60 ml/hr (goal rate), Free Water Flush: 10 cc Q8h via NGT Provides: 1728 kcal/day, 86 gm protein/day, and 1159 ml free water/day Meets: 90% of estimated caloric needs and 85% of upper end of estimated protein needs LP, RD Please refer to Nutrition Assessment for details. Addendum: 08/25/20 at [address] Amended: Links added.
--- NOTE | 2020-08-25 15:57 | NUR ---
Dr. Ley in to see patient. No new orders.
--- NOTE | 2020-08-25 19:00 | NUR ---
Opening note: Report received from day RN. Assuming care now.
--- NOTE | 2020-08-25 19:33 | NUR ---
Closing Note Endorsed bedside report to oncoming RN using SBAR approach for continuation of care.
[2020-08-25] MEDS: TAMSULOSIN HCL 0.4 MG CAP PO SCH (21:26)
[2020-08-25] MEDS: ENOXAPARIN SODIUM 30 MG/0.3 ML SYRINGE SUBCUT SCH (21:27)
[2020-08-25] MEDS: D5/0.45 NS 1,000 ML IV SCH (22:54)
[2020-08-26] VITALS (35 sets, daily range): BP systolic 97–148
[2020-08-26] MEDS: PIPERACILLIN/TAZO 2.25G/DEX-IS 50 ML IV SCH ×4 (00:38→18:35)
[2020-08-26 06:44] LABS: BASOPHILS % (AUTO) 0.2 % (0.0-2.0); EOSINOPHILS % (AUTO) 0.1 % (0.0-4.0); HEMATOCRIT 29.7 % (36-54); HEMOGLOBIN 9.6 g/dL (14.0-18.0); LYMPHOCYTES # (AUTO) 0.8 K/uL (1.0-5.5); LYMPHOCYTES % (AUTO) 7.3 % (20.5-51.5); MEAN CORPUSCULAR HEMOGLOBIN 26 pg (27-31); MEAN CORPUSCULAR HGB CONC 32 % (32-36); MEAN CORPUSCULAR VOLUME 79 fL (79.0-98.0); MONOCYTES # (AUTO) 0.6 K/uL (0.0-1.0); MONOCYTES % (AUTO) 5.5 % (1.7-9.3); NEUTROPHILS # (AUTO) 9.1 K/uL (1.8-7.7); NEUTROPHILS % (AUTO) 86.9 % (40.0-70.0); PLATELET COUNT (AUTO) 72 K/uL (130-430); RED BLOOD CELL COUNT(AUTO) 3.76 MIL/uL (4.2-6.2); RED CELL DISTRIBUTION WIDTH 18.1 % (9.0-15.0); WHITE BLOOD COUNT (AUTO) 10.5 K/uL (4.8-10.8)
[2020-08-26 07:18] LABS: ANION GAP 10 (5-15); CALCIUM 7.3 mg/dL (8.4-11.0); CHLORIDE 117 mmol/L (98-107); CREATININE 1.74 mg/dL (0.55-1.30); GLUCOSE 114 mg/dL (70-99); POTASSIUM 4.2 mmol/L (3.5-5.1); SODIUM SERUM 146 mmol/L (136-145); UREA NITROGEN, BLOOD 47 mg/dL (8-21)
--- NOTE | 2020-08-26 08:00 | NUR ---
Initial notes Assume care, patient is intubated and tolerating current vent settings right now, also tolerating feeding. oral, care done, repositioned. on bilateral wrist restraints. No distress noted.
[2020-08-26] MEDS: DOCUSATE SODIUM 100 MG CAPSULE PO SCH (08:51)
[2020-08-26] MEDS: DORZOLAMIDE 2% OPHTHALMIC SOLN 5ML OP SCH ×3 (08:51→20:13)
[2020-08-26] MEDS: PANTOPRAZOLE SODIUM 40 MG/VIAL (PROTONIX) IVP SCH ×2 (08:51→21:32)
[2020-08-26] MEDS: MULTIVITAMINS TAB 1 TABLET PO SCH (08:52)
[2020-08-26] MEDS: ISOSORBIDE MONONITRATE 30 MG TAB.ER.24H PO SCH (08:52)
[2020-08-26] MEDS: ASPIRIN 81 MG TABLET(ECOTRIN) PO SCH (08:52)
[2020-08-26] MEDS: FINASTERIDE 5 MG TABLET (PROSCAR) PO SCH (08:52)
[2020-08-26] MEDS ORDERED: NS 500 ML IV ONE (10:15)
[2020-08-26] MEDS: PROPOFOL DRIP 100 ML IV PRN (10:24)
--- NOTE | 2020-08-26 10:30 | NUR ---
Notes Seen by Dr. Esparza, Blood pressure on the 90's. Md ordered NS bolus of 500ml.
[2020-08-26] MEDS: D5/0.45 NS 1,000 ML IV SCH ×2 (11:38→18:30)
[2020-08-26] MEDS ORDERED: MUPIROCIN 2% TOPICAL OINTMENT 22 GM NS ONE (14:00)
--- NOTE | 2020-08-26 15:20 | NUR ---
Notes Spoke to Dr. Roblero and made aware of blood culture results.
--- NOTE | 2020-08-26 18:53 | NUR ---
closing notes Open eyes at times, tolerating feeding and vent settings. No acute distress noted. Will endorse
[2020-08-26] MEDS: MUPIROCIN 2% TOPICAL OINTMENT 22 GM NS SCH (20:12)
[2020-08-26] MEDS: TAMSULOSIN HCL 0.4 MG CAP PO SCH (21:31)
[2020-08-26] MEDS: ENOXAPARIN SODIUM 30 MG/0.3 ML SYRINGE SUBCUT SCH (21:32)
[2020-08-27] VITALS (27 sets, daily range): BP systolic 89–149
[2020-08-27] MEDS: PIPERACILLIN/TAZO 2.25G/DEX-IS 50 ML IV SCH ×2 (00:41→06:10)
[2020-08-27] MEDS: D5/0.45 NS 1,000 ML IV SCH ×2 (04:56→13:06)
--- NOTE | 2020-08-27 07:50 | NUR ---
AM ASSESSMENT. PT OPENED HIS EYES TO VERBAL STIMULI, WRISTS RESTRAINTS OFF AND ON, REPOSITIONED PT IN BED, SKIN INTACT AROUND THE WRISTS, ORAL CARE DONE, SOME RESISTANCE FROM THE PATIENT, FEEDING VIA NGT AT 60 ML PER HR CONTINUES.
[2020-08-27] MEDS: MUPIROCIN 2% TOPICAL OINTMENT 22 GM NS SCH ×2 (10:23→21:00)
[2020-08-27] MEDS: DOCUSATE SODIUM 100 MG CAPSULE PO SCH (10:24)
[2020-08-27] MEDS: MULTIVITAMINS TAB 1 TABLET PO SCH (10:24)
[2020-08-27] MEDS: PANTOPRAZOLE SODIUM 40 MG/VIAL (PROTONIX) IVP SCH ×2 (10:24→21:33)
[2020-08-27] MEDS: ISOSORBIDE MONONITRATE 30 MG TAB.ER.24H PO SCH (10:24)
[2020-08-27] MEDS: DORZOLAMIDE 2% OPHTHALMIC SOLN 5ML OP SCH ×3 (10:24→21:00)
[2020-08-27] MEDS: ASPIRIN 81 MG TABLET(ECOTRIN) PO SCH (10:25)
[2020-08-27] MEDS: FINASTERIDE 5 MG TABLET (PROSCAR) PO SCH (12:59)
--- NOTE | 2020-08-27 18:20 | NUR ---
NURSING. PT INCONTINENT OF BOWEL, CLEANSED AREA WITH SOAPY TOWEL, CHG WIPES USED TO BODY AND EXTREMITIES, CLEAN SHEETS PROVIDED, EDEMA TO ALL EXTREMITIES, PILLOW PLACED UNDER HIS LEGS, REPOSITIONED IN BED FOR COMFORT.
--- NOTE | 2020-08-27 19:15 | NUR ---
change of shift.pt.presents isolation status;contact.pt.presents ett/ng-tube;rt.nares;intact;patent. ng-tube feed infusing;glucerna.1.2. pt.presents picc line;location;rt.bicept.intact;patent iv fluids infusing.pt.presents stinson cath intact;patent urine content present.ventilator present.pt.presents c-pap status.general status stable.respiratory status stable;unlabored.call light/telephone w/in access of the pt.
--- NOTE | 2020-08-27 20:00 | NUR ---
pt.assessed.v/s assessed values wnl.pt.presents ett/ng-tube intact;patent ng-tube feed infusing.glucerna;1.2@the rate:60ml/hr. i have attended to the oral care/suctioning.picc line intact;patent iv fluids infusing.stinson cath intact;patent urine content present. per flacc pain mgx pt.absent facial grimaces/body posturing.restraints assessed in place skin/circulation assessed wnl.pt.assessed for cleanliness.pt.repositioned.call light/telephone placed w/in access of the pt.
--- NOTE | 2020-08-27 21:00 | NUR ---
2100pmedications administered via th ng-tube.administered w/out resistance.ng-tube feed residuals assessed scant.5ml.
[2020-08-27] MEDS: TAMSULOSIN HCL 0.4 MG CAP PO SCH (21:33)
[2020-08-27] MEDS: AMPICILLIN SODIUM/SULBACTAM NA 1.5 GM in NS 50 ML IV SCH (21:33)
[2020-08-27] MEDS: ENOXAPARIN SODIUM 30 MG/0.3 ML SYRINGE SUBCUT SCH (21:34)
--- NOTE | 2020-08-27 22:00 | NUR ---
pt.assessed.;pulmo present.inquired r/e;pt's general status.i apprised of the abg's results: noted po-2% low status. ordered fio2-%increase to 40%.i am to apprise the r/t.r/e;increase the fio-2%.ett/ngt- intact;patent. i have attended to the oral/care/suctioning.ng-tube feed infusing.picc line intact;patent iv fluids infusing.stinson cath intact;patent urine content present.pt.assessed for cleanliness.pt.repositioned.restraints assessed in place;skin/circulation wnl.call light/telephone placed w/in access of the pt.
--- NOTE | 2020-08-27 22:15 | NUR ---
rt notes 4730 Dr. Fernandez came in, ordered fio2 to be increased to 40% since ABG PO2 was low. Continue CPAP mode as tolerated. RT executed order. ARNALDO piper aware. will continue to monitor pt.
[2020-08-28] VITALS (29 sets, daily range): BP systolic 87–133
--- NOTE | 2020-08-28 | NUR ---
pt.assessed.v/s assessed values wnl.per flacc pt.absent facial grimaces/body posturing.ett/ngt intact.ng-tube patent ngt feed infusing;residuals assessed scant;5ml.i have administered the [id number].picc line intact;patent iv fluids infusing.i have changed the iv fluids bag.i have assessed the blood glucose:value;130mg/dl.restraints assessed in place.skin/circulation wnl.pt.assessed for cleanliness.pt.repositioned.call light/telephone placed w/in access of the pt. Addendum: 08/28/20 at 0104 by Antoine Grover RN i have attended to the oral care/suctioning.
[2020-08-28] MEDS: D5/0.45 NS 1,000 ML IV SCH ×3 (00:01→20:17)
--- NOTE | 2020-08-28 02:00 | NUR ---
pt.assessed.v/s assessed values w/in normal limits.ett/ngt intact.i have attended to the oral care/suctioning. ng-tube feed infusing.picc line intact;patent iv fluids infusing.stinson cath intact;patent urine content present. pt.assessed for cleanliness.pt.repositioned.per flacc pain mgx pt.absent facial grimaces/body posturing.restraints in place.skin/circulation assessed wnl.call light/telephone placed w/in access of the pt.
--- NOTE | 2020-08-28 04:00 | NUR ---
pt.assessed.v/s assessed values w/in normal limits.ett/ngt intact.ng-tube feed infusing.i have attended to the oral care/suctioning.picc line intact;patent iv fluids infusing.stinson cath intact;patent urine content present.per flacc pain mgx pt. absent facial grimaces/body posturing. pt.assessed for cleanliness.pt.repositioned.restraints assessed in place.skin/circulation w/in normal limits.general status stable.respiratory status stable;unlabored.call light/telephone placed w/in access of the pt.
[2020-08-28 06:03] LABS: HEMOGLOBIN 8.4 g/dL (14.0-18.0); MEAN CORPUSCULAR HEMOGLOBIN 25 pg (27-31); MEAN CORPUSCULAR HGB CONC 32 % (32-36); MEAN CORPUSCULAR VOLUME 78 fL (79.0-98.0); PLATELET COUNT (AUTO) 63 K/uL (130-430); RED BLOOD CELL COUNT(AUTO) 3.33 MIL/uL (4.2-6.2); RED CELL DISTRIBUTION WIDTH 17.7 % (9.0-15.0); WHITE BLOOD COUNT (AUTO) 7.2 K/uL (4.8-10.8)
[2020-08-28] MEDS: INSULIN REGULAR, HUMAN 100 UNITS/ML, 10 ML VIAL (humuLIN R) SUBCUT PRN (06:28)
--- NOTE | 2020-08-28 06:35 | NUR ---
pt.assessed.v/s assessed values wnl.ett/ngt intact.i have attended to the oral care/suctioning.ngt feed infusing.picc line intact;patent iv fluids infusing.stinson cath intact;patent urine content present.blood glucose assessed value;159mg/dl.i have administered insulin;regular;2-units. pt.assessed for cleanliness.pt.repositioned.per flacc pain mgx pt.absent facial grimaces/body posturing.restraints assessed in place.skin/circulation wnl.call light/telephone placed w/in access of the pt.
[2020-08-28 07:00] LABS: ALANINE AMINOTRANSFERASE 29 U/L (12-78); ALBUMIN 1.6 g/dL (3.4-4.8); ANION GAP 8 (5-15); ASPARTATE AMINOTRANSFERASE 21 U/L (10-37); CALCIUM 7.7 mg/dL (8.4-11.0); CHLORIDE 114 mmol/L (98-107); CREATININE 1.11 mg/dL (0.55-1.30); GLUCOSE 175 mg/dL (70-99); POTASSIUM 3.7 mmol/L (3.5-5.1); SODIUM SERUM 143 mmol/L (136-145); TOTAL BILIRUBIN 0.4 mg/dL (0.0-1.0); UREA NITROGEN, BLOOD 34 mg/dL (8-21)
--- NOTE | 2020-08-28 07:20 | NUR ---
Opening Note Received report from endorsing RN. Pt awake and intubated on restraints currently on CPAP, unable to follow commands. Pt in no signs of pain or distress. IVF infusing in PICC line. Bilateral wrist restraints in place for safety, no skin breakdown noted, pulses present. Barakat draining to gravity with chelo urine.
[2020-08-28 09:08] LABS: BAND % (MANUAL) 15 % (0-6); BASOPHILS % (MANUAL) 0 % (0-2); EOSINOPHILS % (MANUAL) 1 % (0-7); LYMPHOCYTES % (MANUAL) 12 % (20-46); MONOCYTES % (MANUAL) 4 % (0-11)
[2020-08-28] MEDS: PANTOPRAZOLE SODIUM 40 MG/VIAL (PROTONIX) IVP SCH ×2 (09:20→20:18)
[2020-08-28] MEDS: DOCUSATE SODIUM 100 MG CAPSULE PO SCH (09:20)
[2020-08-28] MEDS: ASPIRIN 81 MG TABLET(ECOTRIN) PO SCH (09:20)
[2020-08-28] MEDS: MULTIVITAMINS TAB 1 TABLET PO SCH (09:20)
[2020-08-28] MEDS: ISOSORBIDE MONONITRATE 30 MG TAB.ER.24H PO SCH (09:21)
[2020-08-28] MEDS: AMPICILLIN SODIUM/SULBACTAM NA 1.5 GM in NS 50 ML IV SCH ×2 (09:21→20:18)
[2020-08-28] MEDS: FINASTERIDE 5 MG TABLET (PROSCAR) PO SCH (09:23)
[2020-08-28] MEDS: DORZOLAMIDE 2% OPHTHALMIC SOLN 5ML OP SCH ×3 (09:23→20:40)
[2020-08-28] MEDS: MUPIROCIN 2% TOPICAL OINTMENT 22 GM NS SCH ×2 (09:23→20:40)
--- NOTE | 2020-08-28 11:30 | NUR ---
BM Pt noted with explosive diarrhea and copious amounts of brown liquid stool. Collected sample for cdiff. Tube feeding held. Flexiseal inserted.
--- NOTE | 2020-08-28 13:35 | NUR ---
Nutrition F/U Admitting Diagnosis: Septic shock, ARF Medical History Comment: PMH: HTN, DM, BPH, mild dementia, DJD per physician notes Pt also found w/ severe sepsis w/ shock, acute respiratory failure, dehydration, [place], moderate malnutrition, anemia per physician notes 08/28/2020 notes: Dementia w/ Alzheimer's type, Metabolic encephalopathy SARS-CoV-2 (PCR) Negative 08/23 SARS-CoV-2 (Rapid) Negative 08/23 Subjective Information: Pt is in ICU, remains in an Isolation room. RD visit has been deferred d/t lack of PPE. During RD visit, several RN were inside pt's room providing care. RD s/w pt's primary RN Lorri over the phone who reported that EN has been held since 11am this morning d/t massive episode of BM, hard to watery. C.diff samples were sent to lab and flexiseal is in place. RN also reported that pt is no longer on any sedatives. Per EMR report, pt is on a broad spectrum of ABX for pneumonia, UTI and septicemia. Current Diet Order/Nutrition Support: Glucerna 1.2 at 60 ml/hr (goal rate), Free Water Flush: 10 cc Q8h via NGT -- held Pertinent Medications: MVI, Lovenox, Colace Pertinent Labs Na 143 WNL, BUN 34 H, CRE 1.11 WNL, BG 175 H, POC BG 159 H Mu scale: 15. No pressure injury per RN notes. Current % PO N/A NEW Estimated Energy Expenditure (kcals/day) 1939 kcal/day (REE using PSU d/t critical illness on vent support) Estimated Protein Required (g/day) 67-101 gm/day (0.8-1.2 gm/kg CBW for ARF, geriatric status, sepsis) Estimated Fluid Required (l/day) Per physician d/t ARF Problem/Etiology/Signs/Symptoms Increased nutritional needs related to metabolic demands as evidenced by estimated nutritional requirements for sepsis. (*ongoing) Altered nutrition-related labs related to endocrine dysfunction as evidenced by elevated BG and POC BG labs. (*ongoing) Altered GI function r/t medication interaction AEB diarrhea on antibiotics. (*new 08/28) Expected Outcomes/Goals - Monitor tolerance to EN support w/ goal of pt meeting over 80% of estimated nutritional requirements, labs trending WNL, normal GI function, and skin integrity/wt maintenance Dietitian Recommendations * Recommend banatrol TID if diarrhea persists. * Recommend re-start: Glucerna 1.2 at 60 ml/hr (goal rate), Free Water Flush: 10 cc Q8h via NGT Provides: 1728 kcal/day, 86 gm protein/day, and 1159 ml free water/day Meets: 89% of estimated caloric needs and 85% of upper end of estimated protein needs Follow Up High Risk: F/U in 2-3days
--- NOTE | 2020-08-28 13:44 | NUR ---
Dietitian Recommendations * Recommend banatrol TID if diarrhea persists. * Recommend re-start: Glucerna 1.2 at 60 ml/hr (goal rate), Free Water Flush: 10 cc Q8h via NGT Provides: 1728 kcal/day, 86 gm protein/day, and 1159 ml free water/day Meets: 89% of estimated caloric needs and 85% of upper end of estimated protein needs please see Nutrition F/U note for details. USP, RD
[2020-08-28] MEDS: metroNIDAZOLE 250 mg/NS 50 ML IV SCH ×2 (14:58→21:31)
--- NOTE | 2020-08-28 19:07 | NUR ---
Opening Note Received plan of care using SBAR format from endorsing RN. All cares assumed.
--- NOTE | 2020-08-28 19:40 | NUR ---
IV: Right AC 18G D/C, patient has PICC line double lumen.
[2020-08-28] MEDS: TAMSULOSIN HCL 0.4 MG CAP PO SCH (20:18)
[2020-08-28] MEDS: ENOXAPARIN SODIUM 30 MG/0.3 ML SYRINGE SUBCUT SCH (20:20)
--- NOTE | 2020-08-28 21:00 | NUR ---
Nsg Rounds: Patient positioned for comfort, all safety checks completed, bed in lowest locked position. Patient in no acute distress and or discomfort. Monitoring at this time.
--- NOTE | 2020-08-28 22:14 | NUR ---
MD Rounds: Dr. Gonzalez at bedside, report given. No new orders.
--- NOTE | 2020-08-28 22:18 | NUR ---
MD Rounds: Dr. Fernandez at bedside, report given. No new orders.
--- NOTE | 2020-08-28 22:47 | NUR ---
NEURO: Pupils equal and reactive to light bilaterally. No facial droop noted. No smile deficit noted. Unable to assess Speech r/t patient being intubated. Patient is awake and responds to name and nods with head yes / no Bilateral hand catalyst impregnator equal.
[2020-08-29] VITALS (29 sets, daily range): BP systolic 86–114
--- NOTE | 2020-08-29 00:36 | NUR ---
Nsg Rounds: Patient assessed, v/s assessed values w/in normal limits, ett/ngt in place intact, Oral care provided, PICC line intact and patent, iv fluids infusing. Barakat catheter in place, patent and draining below the level of the bladder. Patient shows no signs or distress and or discomfort. Patient clean and dry, bed in lowest locked position for safety, call light within reach. Restraints in place, skin check completed, circulation assessed and present.
--- NOTE | 2020-08-29 02:30 | NUR ---
Nsg Rounds: Patient assessed, v/s assessed values w/in normal limits, Patient shows no signs or distress and or discomfort. Patient clean and dry, bed in lowest locked position for safety, call light within reach. Restraints in place, skin check completed, circulation assessed and present.
--- NOTE | 2020-08-29 04:15 | NUR ---
Nsg Rounds: Oral care provided, Patient shows no signs or distress and or discomfort. Patient clean and dry, bed in lowest locked position for safety, call light within reach. Restraints in place, skin check completed, circulation assessed and present.
[2020-08-29] MEDS: metroNIDAZOLE 250 mg/NS 50 ML IV SCH ×3 (05:17→22:00)
[2020-08-29] MEDS: D5/0.45 NS 1,000 ML IV SCH ×2 (05:30→14:54)
--- NOTE | 2020-08-29 06:13 | NUR ---
NSG Rounds: Patient positioned for comfort, bed in lowest locked position with call light in reach. Patient is clean and dry. All cares provided and needs met. Patient denies pain and or discomfort.
--- NOTE | 2020-08-29 07:07 | NUR ---
Closing Note Provided plan of care via sbar to receiving RN.
[2020-08-29] MEDS: DOCUSATE SODIUM 100 MG CAPSULE PO SCH (08:18)
[2020-08-29] MEDS: ISOSORBIDE MONONITRATE 30 MG TAB.ER.24H PO SCH (08:18)
[2020-08-29] MEDS: PANTOPRAZOLE SODIUM 40 MG/VIAL (PROTONIX) IVP SCH ×2 (08:23→21:30)
[2020-08-29] MEDS: ASPIRIN 81 MG TABLET(ECOTRIN) PO SCH (08:23)
[2020-08-29] MEDS: MULTIVITAMINS TAB 1 TABLET PO SCH (08:23)
[2020-08-29] MEDS: AMPICILLIN SODIUM/SULBACTAM NA 1.5 GM in NS 50 ML IV SCH ×2 (08:23→21:30)
[2020-08-29] MEDS: FINASTERIDE 5 MG TABLET (PROSCAR) PO SCH (08:24)
[2020-08-29] MEDS: MUPIROCIN 2% TOPICAL OINTMENT 22 GM NS SCH ×2 (08:27→21:49)
[2020-08-29] MEDS: DORZOLAMIDE 2% OPHTHALMIC SOLN 5ML OP SCH ×3 (08:27→21:50)
[2020-08-29 08:45] LABS: BASOPHILS % (AUTO) 0.4 % (0.0-2.0); EOSINOPHILS # (AUTO) 0.1 K/uL (0.0-0.4); EOSINOPHILS % (AUTO) 0.9 % (0.0-4.0); HEMATOCRIT 23.3 % (36-54); HEMOGLOBIN 7.5 g/dL (14.0-18.0); LYMPHOCYTES # (AUTO) 1.3 K/uL (1.0-5.5); LYMPHOCYTES % (AUTO) 21.8 % (20.5-51.5); MEAN CORPUSCULAR HEMOGLOBIN 25 pg (27-31); MEAN CORPUSCULAR HGB CONC 32 % (32-36); MEAN CORPUSCULAR VOLUME 78 fL (79.0-98.0); MONOCYTES # (AUTO) 0.6 K/uL (0.0-1.0); MONOCYTES % (AUTO) 9.8 % (1.7-9.3); NEUTROPHILS % (AUTO) 67.1 % (40.0-70.0); PLATELET COUNT (AUTO) 72 K/uL (130-430); RED CELL DISTRIBUTION WIDTH 18.3 % (9.0-15.0)
[2020-08-29 08:59] LABS: ANION GAP 6 (5-15); CALCIUM 7.2 mg/dL (8.4-11.0); CHLORIDE 113 mmol/L (98-107); CREATININE 1.03 mg/dL (0.55-1.30); GLUCOSE 166 mg/dL (70-99); POTASSIUM 3.1 mmol/L (3.5-5.1); SODIUM SERUM 141 mmol/L (136-145); UREA NITROGEN, BLOOD 30 mg/dL (8-21)
[2020-08-29] MEDS ORDERED: POTASSIUM CHLORIDE 20 MEQ/PKT PACKET PO ONE (11:15)
[2020-08-29] MEDS: INSULIN REGULAR, HUMAN 100 UNITS/ML, 10 ML VIAL (humuLIN R) SUBCUT PRN ×2 (11:48→17:50)
[2020-08-29] MEDS: GENTAMICIN SULFATE 160 MG in NS 100 ML IV SCH (12:18)
--- NOTE | 2020-08-29 14:05 | NUR ---
WOUND EVALUATION: Wound Consult received from Dr. Gonzalez. Thank you, Dr. Gonzalez, for the consult. Patient received in a [place] Bed with an Isoflex CHANTAL mattress with low air loss therapy, awake, nonverbal, nonresponsive to verbal commands, intubated. Patient is unable to turn in bed independently. Mu Score is a 12. Past Medical History: Diabetes Mellitus, Hypertension, mild Dementia, Benign Prostatic Hypertrophy, Degenerative Joint Disease. Upon arrival to the E.D[facility] the patient was in Acute Respiratory Failure, Sepsis, and Metabolic Acidosis. Recent Labs: WBC 6.0, RBC 3.00, hemoglobin 7.5, hematocrit 23.3, platelets 72, Potassium 3.1, chloride 113, BUN 30, creatinine 1.03, glucose 166, POC glucose 187, calcium 7.2, albumin 1.6, PT 12.6, D-dimer 4130. Microbiology: Blood culture results positive for E. coli (ESBL) and Providencia stuartii (MDRO). MRSA screen results positive. Tracheal aspirate culture results negative. Urine culture results positive for Proteus penneri. Stool culture results positive for C. difficile. Intrinsic factors that delay wound healing: Diabetes Mellitus, Acute Respiratory Failure, Sepsis, Metabolic Acidosis, severe Hypoalbuminemia, Hyperglycemia. Extrinsic factors that delay wound healing: Decreased mobility. Wound Assessment: 1. Gluteal sulcus: Intertrigo with erythema and MASD. Site has 90% light pink tissue, 10% pink tissue. No odor, no drainage. Periwound intact. Wound measures 1.8 cm x 0.6 cm. Recommend: Cleanse wound with normal saline. Apply Calmoseptine cream to wound and festus-wound. Cover with 4x4 foam dressing. Perform wound care daily, and as needed for dressing soiling or dislodgement. 2. Right buttock: Area of 90% dark discoloration, 10% dark red discoloration. No odor, no drainage. Periwound intact. Site measures 3.8 cm x 3.9 cm Recommend: Cover site with 4x4 foam dressing. Perform site care daily, and as needed for dressing soiling or dislodgement. 3. Upper back: Blanchable redness. 4. Pelvic area: Blanchable redness. Recommend:Reposition patient side to side only every 2 hours with one pillow underneath trunk and one pillow underneath pelvis at all times. 5. Right Heel: Blanchable redness. Recommend: Elevate, offload and float bilateral heels with one pillow lengthwise under each extremity at all times. Also recommend: Reposition patient side to side only every 2 hours with pillow support and off-load pressure areas with pillows for pressure re-distribution. Offload, elevate and float bilateral heels with pillows. Perform skin care and monitor skin integrity Q shift. Use moisture barrier cream on buttocks and other moisture susceptible areas QID and as needed for soiling. Maintain patient on a low air-loss mattress.
--- NOTE | 2020-08-29 18:37 | NUR ---
CLOSING NOTES, PT HAS BEEN STABLE, BP ON THE LOW SIDE BUT WNL. NO FEVER, CONTINUED TO BE ON VENT, NGT FEEDING. PICC INTACT AND PATENT. ZARATE CATH INTACT AND PATENT WELL THE RECTAL TUBE. BLOOD SUGAR CHECKED , TURNED AND REPOSITIONED Q2 HOURS, SEEN BY WOUND CARE NURSE ELVIRA.
--- NOTE | 2020-08-29 19:09 | NUR ---
PT ENDORSED TO NIGHT NURSE MADDIE.
--- NOTE | 2020-08-29 19:20 | NUR ---
Opening note Received patient after report from dayshift nurse using SBAR tool and assumed care. Vent to ETT in place; patient tachypneic RR 33 Awake and responding to simple commands. Reports abdomen tender with hypoactive bowel sounds. BL wrist restraints in place; requires total assist with turning. Repositioned for comfort. Rectal tube in place and draining watery stool. Barakat catheter in place and draining to gravity. will continue to monitor patient as per unit protocol.
--- NOTE | 2020-08-29 19:35 | NUR ---
Dr Gonzalez at bedside for assessment, no orders received.
--- NOTE | 2020-08-29 20:00 | NUR ---
Dr Fernandez at bedside Orders received for Venous dopler BL LE VQ scan to r/o PE and to obtain official report from previous chest CT scan on 08/24/20. Radiology already contacted. ABG stat
[2020-08-29] MEDS: TAMSULOSIN HCL 0.4 MG CAP PO SCH (21:30)
[2020-08-29] MEDS: ENOXAPARIN SODIUM 30 MG/0.3 ML SYRINGE SUBCUT SCH (21:31)
--- NOTE | 2020-08-29 22:01 | NUR ---
PAGED FOR ORDERS DIALED: [phone] SPOKE TO: HAN
--- NOTE | 2020-08-29 22:13 | NUR ---
ABG results reported to Dr Fernandez Orders received to change vent settings to C-Pap, PS 14, FIO2 35%, at 0700 and Blood Gas (ABG) 1 hr after change at 0800.
[2020-08-30] VITALS (33 sets, daily range): BP systolic 79–102
[2020-08-30] MEDS: D5/0.45 NS 1,000 ML IV SCH ×3 (01:11→22:12)
[2020-08-30] MEDS: INSULIN REGULAR, HUMAN 100 UNITS/ML, 10 ML VIAL (humuLIN R) SUBCUT PRN ×3 (01:12→12:34)
[2020-08-30 05:54] LABS: ANION GAP 6 (5-15); CALCIUM 7.3 mg/dL (8.4-11.0); CHLORIDE 111 mmol/L (98-107); GLUCOSE 185 mg/dL (70-99); PHOSPHORUS 2.1 mg/dL (2.7-4.5); POTASSIUM 3.6 mmol/L (3.5-5.1); SODIUM SERUM 141 mmol/L (136-145); UREA NITROGEN, BLOOD 30 mg/dL (8-21)
[2020-08-30 06:03] LABS: BASOPHILS % (AUTO) 0.3 % (0.0-2.0); EOSINOPHILS # (AUTO) 0.1 K/uL (0.0-0.4); EOSINOPHILS % (AUTO) 0.7 % (0.0-4.0); HEMATOCRIT 24.3 % (36-54); HEMOGLOBIN 7.8 g/dL (14.0-18.0); LYMPHOCYTES % (AUTO) 14.1 % (20.5-51.5); MEAN CORPUSCULAR HEMOGLOBIN 25 pg (27-31); MEAN CORPUSCULAR HGB CONC 32 % (32-36); MEAN CORPUSCULAR VOLUME 78 fL (79.0-98.0); MONOCYTES # (AUTO) 0.8 K/uL (0.0-1.0); MONOCYTES % (AUTO) 10.2 % (1.7-9.3); NEUTROPHILS # (AUTO) 5.5 K/uL (1.8-7.7); NEUTROPHILS % (AUTO) 74.7 % (40.0-70.0); PLATELET COUNT (AUTO) 108 K/uL (130-430); RED BLOOD CELL COUNT(AUTO) 3.11 MIL/uL (4.2-6.2); RED CELL DISTRIBUTION WIDTH 18.2 % (9.0-15.0); WHITE BLOOD COUNT (AUTO) 7.4 K/uL (4.8-10.8)
[2020-08-30] MEDS: metroNIDAZOLE 250 mg/NS 50 ML IV SCH ×2 (06:52→15:01)
--- NOTE | 2020-08-30 07:15 | NUR ---
RT NOTES Per dr's order vent to cpap 5 ps 14 fio2 0.35. no immediate adverse reactions noted. will monitor pt.
--- NOTE | 2020-08-30 07:15 | NUR ---
Opening Notes Pt received from night RN using SBAR.
--- NOTE | 2020-08-30 07:18 | NUR ---
[employer] community development technician at bedside with pt performing bilateral lower extremities
[2020-08-30] MEDS ORDERED: NS 500 ML IV ONE (08:45)
[2020-08-30] MEDS: DOCUSATE SODIUM 100 MG CAPSULE PO SCH (09:00)
[2020-08-30] MEDS: AMPICILLIN SODIUM/SULBACTAM NA 1.5 GM in NS 50 ML IV SCH ×2 (09:26→20:07)
[2020-08-30] MEDS: ALBUMIN HUMAN 25% 50 ML IV SCH ×3 (09:26→19:54)
[2020-08-30] MEDS: FINASTERIDE 5 MG TABLET (PROSCAR) PO SCH (09:27)
[2020-08-30] MEDS: MULTIVITAMINS TAB 1 TABLET PO SCH (09:27)
[2020-08-30] MEDS: ASPIRIN 81 MG TABLET(ECOTRIN) PO SCH (09:27)
[2020-08-30] MEDS: PANTOPRAZOLE SODIUM 40 MG/VIAL (PROTONIX) IVP SCH ×2 (09:27→20:07)
[2020-08-30] MEDS: ISOSORBIDE MONONITRATE 30 MG TAB.ER.24H PO SCH (09:27)
[2020-08-30] MEDS: MUPIROCIN 2% TOPICAL OINTMENT 22 GM NS SCH ×2 (09:28→20:07)
[2020-08-30] MEDS: DORZOLAMIDE 2% OPHTHALMIC SOLN 5ML OP SCH ×3 (09:28→20:08)
--- NOTE | 2020-08-30 10:05 | NUR ---
VQ Scan VQ scan dye lab technician at bedside, with RT. Pt last NIBP reading 80/49 recycled BP which resulted 78/55. Pt will remain in room and not transport to VQ Scan due to BP. Will continue to monitor.
[2020-08-30] MEDS: GENTAMICIN SULFATE 160 MG in NS 100 ML IV SCH (12:27)
[2020-08-30] MEDS: ACETAMINOPHEN 325 MG TABLET NG PRN (12:36)
--- NOTE | 2020-08-30 15:02 | NUR ---
Resting Pt resting in bed, no signs of acute distress
[2020-08-30] MEDS ORDERED: VANCOMYCIN HCL ORAL SOLUTION 250 MG/5 ML, 80 ML PO SCH (17:00)
[2020-08-30] MEDS ORDERED: VANCOMYCIN HCL ORAL SOLUTION 250 MG/5 ML, 80 ML PO ONE (17:30)
--- NOTE | 2020-08-30 19:20 | NUR ---
Closing Notes Pt endorsed to night RN using SBAR.
--- NOTE | 2020-08-30 19:31 | NUR ---
Opening Note Received plan of care using SBAR format from endorsing RN. All cares assumed.
[2020-08-30] MEDS: TAMSULOSIN HCL 0.4 MG CAP PO SCH (20:07)
[2020-08-30] MEDS: ENOXAPARIN SODIUM 30 MG/0.3 ML SYRINGE SUBCUT SCH (20:08)
[2020-08-30] MEDS: VANCOMYCIN HCL ORAL SOLUTION 250 MG/5 ML, 80 ML PO SCH (21:25)
--- NOTE | 2020-08-30 22:00 | NUR ---
Rounds: Dr. Gonzalez at bedside, report given, aware of Phosphorus result 1.2, No new orders. Addendum: 08/30/20 at 2348 by Gely Gutierrez RN H20 increased to 100 cc Q8 hours, Phos 2.1.
--- NOTE | 2020-08-30 22:30 | NUR ---
Nsg Rounds: Positioned for comfort, mouth suctioned, lip care provided. Patient responds with head nods to yes / no questions. All safety checks in place, bed in lowest locked position call light in reach.
--- NOTE | 2020-08-30 23:26 | NUR ---
MD Rounds: Dr. Fernandez at bedside, report given, aware of Phosphorus result 1.2, No new orders. Per Dr. Fernandez patient to be placed back onto SIMV vent settings. RT notified and aware.
--- NOTE | 2020-08-30 23:28 | NUR ---
rt notes 2328 pt back to SIMV mode (SIMV 10,VT500, PS 12, PEEP 5, 35% FIO2) per Dr Fernandez's ordered. pt RR 40's. coached pt to do deep breaths. RN aware, will continue to monitor pt. will endorse changes to AM RT.
--- NOTE | 2020-08-30 23:36 | NUR ---
Vent: Patient placed back onto SIMV R10, TV 500, Fio2 35%, Peep 5, PS 12, setting by RT. Monitoring, patient remains tachypneic at this time R 38.
[2020-08-31] VITALS (36 sets, daily range): BP systolic 82–116
--- NOTE | 2020-08-31 00:14 | NUR ---
Order: Per Dr. Fernandez new order as follows, 1 tab NutraPhos BID x 2 days via NG tube.
[2020-08-31] MEDS: INSULIN REGULAR, HUMAN 100 UNITS/ML, 10 ML VIAL (humuLIN R) SUBCUT PRN ×5 (00:22→23:53)
--- NOTE | 2020-08-31 01:35 | NUR ---
Nsg Rounds: Patient shows no signs or distress and or discomfort. Patient clean and dry, bed in lowest locked position for safety, call light within reach. Continuing to monitor at this time.
[2020-08-31 05:56] LABS: BASOPHILS % (AUTO) 0.3 % (0.0-2.0); EOSINOPHILS # (AUTO) 0.1 K/uL (0.0-0.4); EOSINOPHILS % (AUTO) 1.2 % (0.0-4.0); HEMATOCRIT 25.8 % (36-54); HEMOGLOBIN 8.1 g/dL (14.0-18.0); LYMPHOCYTES % (AUTO) 8.7 % (20.5-51.5); MEAN CORPUSCULAR HEMOGLOBIN 25 pg (27-31); MEAN CORPUSCULAR HGB CONC 31 % (32-36); MEAN CORPUSCULAR VOLUME 79 fL (79.0-98.0); MONOCYTES # (AUTO) 0.9 K/uL (0.0-1.0); MONOCYTES % (AUTO) 7.9 % (1.7-9.3); NEUTROPHILS # (AUTO) 9.2 K/uL (1.8-7.7); NEUTROPHILS % (AUTO) 81.9 % (40.0-70.0); PLATELET COUNT (AUTO) 158 K/uL (130-430); RED BLOOD CELL COUNT(AUTO) 3.25 MIL/uL (4.2-6.2); RED CELL DISTRIBUTION WIDTH 18.3 % (9.0-15.0); WHITE BLOOD COUNT (AUTO) 11.2 K/uL (4.8-10.8)
--- NOTE | 2020-08-31 06:33 | NUR ---
X-Ray: X-ray tech at bedside performing Cxr per order, tolerated well with no adverse effects
[2020-08-31 06:41] LABS: ANION GAP 7 (5-15); CALCIUM 7.8 mg/dL (8.4-11.0); CHLORIDE 109 mmol/L (98-107); CREATININE 1.25 mg/dL (0.55-1.30); GLUCOSE 262 mg/dL (70-99); PHOSPHORUS 2.6 mg/dL (2.7-4.5); POTASSIUM 4.1 mmol/L (3.5-5.1); SODIUM SERUM 139 mmol/L (136-145); UREA NITROGEN, BLOOD 29 mg/dL (8-21)
--- NOTE | 2020-08-31 06:59 | NUR ---
Closing Note Provided plan of care via sbar to receiving RN.
--- NOTE | 2020-08-31 07:15 | NUR ---
Opening note Received report from JOSÉ MCINTOSH.
[2020-08-31] MEDS: AMPICILLIN SODIUM/SULBACTAM NA 1.5 GM in NS 50 ML IV SCH ×2 (08:35→20:45)
[2020-08-31] MEDS: FINASTERIDE 5 MG TABLET (PROSCAR) PO SCH (08:36)
[2020-08-31] MEDS: PANTOPRAZOLE SODIUM 40 MG/VIAL (PROTONIX) IVP SCH ×2 (08:37→20:46)
[2020-08-31] MEDS: ISOSORBIDE MONONITRATE 30 MG TAB.ER.24H PO SCH (08:37)
[2020-08-31] MEDS: NAPH,MB-DB/K PH,MBDB 250 MG TAB PO SCH ×2 (08:37→20:46)
[2020-08-31] MEDS: DOCUSATE SODIUM 100 MG CAPSULE PO SCH (08:37)
[2020-08-31] MEDS: ASPIRIN 81 MG TABLET(ECOTRIN) PO SCH (08:38)
[2020-08-31] MEDS: MULTIVITAMINS TAB 1 TABLET PO SCH (08:38)
[2020-08-31] MEDS: VANCOMYCIN HCL ORAL SOLUTION 250 MG/5 ML, 80 ML PO SCH ×4 (08:39→20:45)
[2020-08-31] MEDS: D5/0.45 NS 1,000 ML IV SCH ×2 (08:39→18:27)
[2020-08-31] MEDS: MUPIROCIN 2% TOPICAL OINTMENT 22 GM NS SCH (08:40)
[2020-08-31] MEDS: DORZOLAMIDE 2% OPHTHALMIC SOLN 5ML OP SCH ×3 (08:41→20:47)
--- NOTE | 2020-08-31 10:29 | NUR ---
RT NOTES PT PLACED ON T-BAR TRIAL PER DR. BUTTS ON 35%. PT WAS EDUCATED ON T-BAR TRIAL AND APPEARS TO UNDERSTAND. PT ABLE "NODDED" NO WHEN ASKED IF SOB. PT VITALS POST CHANGE, SPO2 93% HR 87 RR 32. T-BAR TRIAL DELAY DUE TO UNRELATED RN PT CARE.
--- NOTE | 2020-08-31 10:30 | NUR ---
RT at bedside RT at bedside- patient placed on TBAR per Dr. Fernandez order. Patient tolerated well.
--- NOTE | 2020-08-31 11:10 | NUR ---
RT NOTE FOUND PT SATURATION LOW 88% PER CHARGE NURSE, OK TO DRAW ABG @ 1118, PLACED PT BACK ON VENT. PREVIOUS SETTINGS. SATURATION IMPROVED 92%. @[address] BUTTS REGARDING NON TOLERANCE OF T-BAR TRIAL, PER DR CHANGE VENT SETTINGS BACK TO SIMV 10 VT 500 PS 12 PEEP +5. SATURATION IMPROVED 94% AND ROSE VENT SETTINGS CHANGE. ARNALDO FAYE AWARE OF VENT SETTINGS CHANGE AND ABG RESULTS. WILL CONTINUE TO MONITOR FOR CHANGES
--- NOTE | 2020-08-31 11:35 | NUR ---
RT at bedside RT at bedside to place pt back on SIMV. Pt did not tolerate TBAR. Dr. Fernandez notified.
--- NOTE | 2020-08-31 11:35 | NUR ---
ABG results relayed to Dr. Fernandez. Will change vent setting back to [facility].
[2020-08-31] MEDS: GENTAMICIN SULFATE 160 MG in NS 100 ML IV SCH (12:16)
--- NOTE | 2020-08-31 13:42 | NUR ---
Nutrition F/U Admitting Diagnosis: Septic shock, ARF Medical History Comment: PMH: HTN, DM, BPH, mild dementia, DJD per physician notes Pt also found w/ severe sepsis w/ shock, acute respiratory failure, dehydration, [place], moderate malnutrition, anemia per physician notes 08/28/2020 notes: Dementia w/ Alzheimer's type, Metabolic encephalopathy SARS-CoV-2 (PCR) Negative 08/23 SARS-CoV-2 (Rapid) Negative 08/23 Subjective Information: Pt is in ICU, remains in an isolation room. RD visit was deferred d/t lack of PPE. From closed door, RD was able to visualize TF infusing via NGT Glucerna 1.2 at 60 ml/hr. RN reported pt has been tolerating TF well w/ very low residuals. She stated pt has no pending plans/procedures. BG have been a bit elevated per RN report. Per EMR review, stool output: 400 ml 08/30 via rectal tube. ID MD noted that pt tested C.diff positive. Banatrol is appropriate at this time. Current TF regimen remains adequate/appropriate. Current Diet Order/Nutrition Support: Glucerna 1.2 at 60 ml/hr (goal rate), Free Water Flush: 100 CC Q8H via NGT x0 days Pertinent Medications: MVI, lovenox, vancomycin, colace, SSI Pertinent Labs: BUN 29 H, CRE 1.25 H, BG 262 H, POC BG 269 H, WBC 11.2 H Mu scale: 12; RD reviewed hard chart for wound photos; visualized red/dark discoloration to buttocks as described per nursing notes via EMR Current % PO N/A NEW Estimated Energy Expenditure (kcals/day) 1737 kcal/day (REE using PSU d/t critical illness on vent support) -- minute volume: 11/temperature: 37.1 degrees C Estimated Protein Required (g/day) 67-101 gm/day (0.8-1.2 gm/kg CBW for ARF, geriatric status, sepsis) Estimated Fluid Required (l/day) Per physician d/t ARF Problem/Etiology/Signs/Symptoms Increased nutritional needs related to metabolic demands as evidenced by estimated nutritional requirements for sepsis. (*ongoing) Altered nutrition-related labs related to endocrine dysfunction as evidenced by elevated BG and POC BG labs. (*ongoing) Altered GI function r/t medication interaction AEB diarrhea on antibiotics. (*ongoing) Expected Outcomes/Goals - Monitor tolerance to EN support w/ goal of pt meeting over 80% of estimated nutritional requirements, labs trending WNL, normal GI function, and skin integrity/wt maintenance Dietitian Recommendations * Recommend Banatrol TID * Recommend continuing Glucerna 1.2 at 60 ml/hr (goal rate), Free Water Flush: 100 CC Q8H via NGT Provides: 1728 kcal/day, 86 gm protein/day, and 1159 ml free water/day Meets: 99% of estimated caloric needs and 85% of upper end of estimated protein needs Follow Up High Risk: F/U in 2-3 days
--- NOTE | 2020-08-31 13:52 | NUR ---
Dietitian Recommendations * Recommend Banatrol TID * Recommend continuing Glucerna 1.2 at 60 ml/hr (goal rate), Free Water Flush: 100 CC Q8H via NGT Provides: 1728 kcal/day, 86 gm protein/day, and 1159 ml free water/day Meets: 99% of estimated caloric needs and 85% of upper end of estimated protein needs LP, RD Please refer to Nutrition F/U for details.
--- NOTE | 2020-08-31 15:55 | NUR ---
RT at bedside RT at bedside to assess patient d/t desaturation to 80's, + accessory muscle use. Pt placed on 100% FiO2 with improvement in saturation to 100%.
--- NOTE | 2020-08-31 16:12 | NUR ---
MD Dr. Mccartneyium informed of pts BP and respiratory status. New orders received.
[2020-08-31] MEDS ORDERED: NALOXONE HCL 0.4 MG/ML AMP (NARCAN) IVP PRN (16:15)
[2020-08-31] MEDS ORDERED: ALBUMIN HUMAN 25% 100 ML IV ONE (16:15)
--- NOTE | 2020-08-31 16:15 | NUR ---
HIGH ALERT NOTE: Called Dr. Gonzalez back at identified within the medical roster to verify physician authenticity.
[2020-08-31] MEDS: HYDROmorphone 1 MG INJ. 1 MG/ML AMPUL IVP PRN (16:56)
--- NOTE | 2020-08-31 17:00 | NUR ---
RT at bedside RT at bedside-patient placed on 80% FiO2%, SpO2: 97%.
--- NOTE | 2020-08-31 19:36 | NUR ---
Closing note Report given to JOSÉ MCINTOSH.
--- NOTE | 2020-08-31 19:37 | NUR ---
Opening Note Received report from AM nurse using SBAR approach.
[2020-08-31] MEDS: ENOXAPARIN SODIUM 30 MG/0.3 ML SYRINGE SUBCUT SCH (20:46)
[2020-08-31] MEDS: TAMSULOSIN HCL 0.4 MG CAP PO SCH (20:46)
--- NOTE | 2020-08-31 21:00 | NUR ---
BM Patient had a large BM. Cleaned patient with voss wipes and changed all linens and gown. Patient tolerated well.
--- NOTE | 2020-08-31 22:15 | NUR ---
MD rounds Dr. Fernandez came to see patient. Recommends that the patient should be due for a trache. Dr. Fernandez said to endorse to AM shift to ask Dr. Gonzalez if he will contact the friend of the patient to get consent or if Dr. Gonzalez wants Dr. Fernandez to call. Patient has no family members to sign consent. Will endorse to AM nurse.
--- NOTE | 2020-08-31 23:33 | NUR ---
O2 Titrated RT titrated FIO2 from 80% to 70%. Patient tolerated well.
[2020-09-01] VITALS (33 sets, daily range): BP systolic 92–132
[2020-09-01] MEDS: D5/0.45 NS 1,000 ML IV SCH (05:20)
[2020-09-01] MEDS: INSULIN REGULAR, HUMAN 100 UNITS/ML, 10 ML VIAL (humuLIN R) SUBCUT PRN ×3 (05:40→18:12)
[2020-09-01 06:32] LABS: BASOPHILS % (AUTO) 0.4 % (0.0-2.0); EOSINOPHILS % (AUTO) 0.3 % (0.0-4.0); HEMATOCRIT 26.8 % (36-54); HEMOGLOBIN 8.3 g/dL (14.0-18.0); LYMPHOCYTES # (AUTO) 1.3 K/uL (1.0-5.5); MEAN CORPUSCULAR HEMOGLOBIN 25 pg (27-31); MEAN CORPUSCULAR HGB CONC 31 % (32-36); MEAN CORPUSCULAR VOLUME 80 fL (79.0-98.0); MONOCYTES # (AUTO) 0.7 K/uL (0.0-1.0); MONOCYTES % (AUTO) 6.3 % (1.7-9.3); NEUTROPHILS # (AUTO) 9.4 K/uL (1.8-7.7); PLATELET COUNT (AUTO) 196 K/uL (130-430); RED BLOOD CELL COUNT(AUTO) 3.36 MIL/uL (4.2-6.2); RED CELL DISTRIBUTION WIDTH 18.5 % (9.0-15.0); WHITE BLOOD COUNT (AUTO) 11.5 K/uL (4.8-10.8)
[2020-09-01 07:07] LABS: ANION GAP 8 (5-15); CALCIUM 7.6 mg/dL (8.4-11.0); CHLORIDE 110 mmol/L (98-107); GLUCOSE 230 mg/dL (70-99); PHOSPHORUS 3.6 mg/dL (2.7-4.5); POTASSIUM 4.3 mmol/L (3.5-5.1); SODIUM SERUM 141 mmol/L (136-145); UREA NITROGEN, BLOOD 31 mg/dL (8-21)
--- NOTE | 2020-09-01 07:25 | NUR ---
Received patient and endorsed report. Side rails x 3 up. Call light with in reach.
--- NOTE | 2020-09-01 07:33 | NUR ---
RT NOTES FIO2 to 0.60. will monitor pt.
--- NOTE | 2020-09-01 07:37 | NUR ---
Closing Note Endorsed report to AM nurse using SBAR approach.
--- NOTE | 2020-09-01 08:15 | NUR ---
RT NOTES Unable to draw ABG, pt was non-compliant, kept twisting arm despite education on ABG. RN notified.
[2020-09-01] MEDS: DOCUSATE SODIUM 100 MG CAPSULE PO SCH (09:00)
--- NOTE | 2020-09-01 09:25 | NUR ---
RT NOTES FIO2 TO 0.50. will monitor pt. pt cont. to be non-compliant w/ abg, rn notified
[2020-09-01] MEDS: PANTOPRAZOLE SODIUM 40 MG/VIAL (PROTONIX) IVP SCH ×2 (09:48→20:53)
[2020-09-01] MEDS: ISOSORBIDE MONONITRATE 30 MG TAB.ER.24H PO SCH (09:48)
[2020-09-01] MEDS: NAPH,MB-DB/K PH,MBDB 250 MG TAB PO SCH ×2 (09:48→21:05)
[2020-09-01] MEDS: MULTIVITAMINS TAB 1 TABLET PO SCH (09:48)
[2020-09-01] MEDS: ASPIRIN 81 MG TABLET(ECOTRIN) PO SCH (09:48)
[2020-09-01] MEDS: VANCOMYCIN HCL ORAL SOLUTION 250 MG/5 ML, 80 ML PO SCH ×4 (09:49→21:06)
[2020-09-01] MEDS: DORZOLAMIDE 2% OPHTHALMIC SOLN 5ML OP SCH ×3 (09:49→21:04)
[2020-09-01] MEDS: FINASTERIDE 5 MG TABLET (PROSCAR) PO SCH (09:49)
[2020-09-01] MEDS: AMPICILLIN SODIUM/SULBACTAM NA 1.5 GM in NS 50 ML IV SCH ×2 (09:50→21:41)
[2020-09-01] MEDS: ACETAMINOPHEN 325 MG TABLET NG PRN (10:35)
[2020-09-01] MEDS: HYDROmorphone 1 MG INJ. 1 MG/ML AMPUL IVP PRN (10:35)
--- NOTE | 2020-09-01 11:32 | NUR ---
RT NOTES 3rd attempt in abg draw was unsuccessful, pt cont. to twist arm, and was deemed unsafe. rn made aware.
--- NOTE | 2020-09-01 13:20 | NUR ---
RT NOTES FIO2 TO 0.40 will monitor pt
[2020-09-01] MEDS: GENTAMICIN 120 MG/ ISO-OSM 100 ML PREMIX IV SCH (17:21)
--- NOTE | 2020-09-01 19:05 | NUR ---
MD Gonzalez at bed side assessing patient, requested bilateral restraints due to patient attempt to pull out intubation, approved order.
--- NOTE | 2020-09-01 19:30 | NUR ---
PM ASSESSMENT REPORT RECEIVED FROM RIDGE MCINTOSH. PT RECEIVED IN BED WITH EYES OPEN, RESPONDING TO VERBAL STIMULATION. PT IS ABLE TO NOD HEAD "YES OR NO" APPROPRIATELY TO QUESTIONS ASKED. VSS, NO S/S OF ACUTE DISTRESS NOTED. PT INTUBATED, VENT SETTINGS: SIMV 10, PS 12, TV 500, FIO2 40%, PEEP 5. ELIZABETH PICC IN PLACE INFUSING D5 1/2 NS @ 100 CC/HR. R NARE NGT RUNNING GLUCERNA @ 60 CC/HR. BILATERAL SOFT WRIST RESTRAINTS IN PLACE, NO S/S OF INJURY NOTED. ZARATE CATH DRAINING URINE TO GRAVITY. FLEXI SEAL DRAINING LOOSE STOOL TO GRAVITY. PT DENIES ANY PAIN OR DISCOMFORT AT THIS TIME. HOB ELEVATED, BED IN LOWEST POSITION, CALL LIGHT IN REACH. WILL CONTINUE TO MONITOR PT.
--- NOTE | 2020-09-01 19:32 | NUR ---
Endorsed patient and gave report to NOC shift nurse. Side rails x 3 up. Call light with in reach.
[2020-09-01] MEDS: TAMSULOSIN HCL 0.4 MG CAP PO SCH (21:04)
[2020-09-01] MEDS: ENOXAPARIN SODIUM 30 MG/0.3 ML SYRINGE SUBCUT SCH (21:04)
--- NOTE | 2020-09-01 23:30 | NUR ---
DR. BENJAMÍN WALSH AT BEDSIDE TO EVALUATE PT. ORDERS RECEIVED TO FOLLOW UP WITH DR. CHOUDHARY ABOUT NECESSITY FOR TRACH PLACEMENT. DR. BUTTS WOULD LIKE TO KNOW IF HE IS AGREEABLE D/T PT NOT HAVING FAMILY IN THE AREA. ORDERS ALSO RECEIVED FOR AM CPAP TRIALS AND ABGS. WILL CARRY OUT ORDERED.
[2020-09-02] VITALS (31 sets, daily range): BP systolic 94–129
[2020-09-02] MEDS: INSULIN REGULAR, HUMAN 100 UNITS/ML, 10 ML VIAL (humuLIN R) SUBCUT PRN ×4 (00:36→18:03)
[2020-09-02] MEDS: HYDROmorphone 1 MG INJ. 1 MG/ML AMPUL IVP PRN (01:39)
--- NOTE | 2020-09-02 01:58 | NUR ---
FLEXI SEAL LEAK LEAKAGE NOTED TO FLEXI SEAL. FLEXI-SEAL REINSERTED AND BALLOON INFLATED. FIDE CARE PROVIDED AND LINENS CHANGED. PT TOLERATED WELL. WILL CONTINUE TO MONITOR PT.
[2020-09-02] MEDS: D5/0.45 NS 1,000 ML IV SCH ×2 (05:35→17:18)
--- NOTE | 2020-09-02 07:25 | NUR ---
Received patient and report from [facility] shift nurse. Side rails x 3 up. Call light with in reach. Patient sleeping in bed.
--- NOTE | 2020-09-02 07:32 | NUR ---
ENDORSEMENT BEDSIDE REPORT GIVEN TO WILMER MCINTOSH USING SBAR APPROACH.
[2020-09-02 07:35] LABS: ANION GAP 6 (5-15); CALCIUM 7.4 mg/dL (8.4-11.0); CHLORIDE 108 mmol/L (98-107); GLUCOSE 221 mg/dL (70-99); PHOSPHORUS 3.1 mg/dL (2.7-4.5); SODIUM SERUM 138 mmol/L (136-145); UREA NITROGEN, BLOOD 32 mg/dL (8-21)
[2020-09-02 07:59] LABS: BASOPHILS # (AUTO) 0.1 K/uL (0.0-0.2); BASOPHILS % (AUTO) 0.6 % (0.0-2.0); EOSINOPHILS % (AUTO) 0.2 % (0.0-4.0); HEMATOCRIT 24.8 % (36-54); LYMPHOCYTES # (AUTO) 1.2 K/uL (1.0-5.5); MEAN CORPUSCULAR HEMOGLOBIN 25 pg (27-31); MEAN CORPUSCULAR HGB CONC 32 % (32-36); MEAN CORPUSCULAR VOLUME 79 fL (79.0-98.0); MONOCYTES # (AUTO) 0.5 K/uL (0.0-1.0); MONOCYTES % (AUTO) 5.4 % (1.7-9.3); NEUTROPHILS # (AUTO) 7.8 K/uL (1.8-7.7); NEUTROPHILS % (AUTO) 80.8 % (40.0-70.0); PLATELET COUNT (AUTO) 258 K/uL (130-430); RED BLOOD CELL COUNT(AUTO) 3.13 MIL/uL (4.2-6.2); RED CELL DISTRIBUTION WIDTH 18.6 % (9.0-15.0); WHITE BLOOD COUNT (AUTO) 9.6 K/uL (4.8-10.8)
[2020-09-02] MEDS: DOCUSATE SODIUM 100 MG CAPSULE PO SCH (09:00)
[2020-09-02] MEDS: PANTOPRAZOLE SODIUM 40 MG/VIAL (PROTONIX) IVP SCH ×2 (09:18→21:48)
[2020-09-02] MEDS: DORZOLAMIDE 2% OPHTHALMIC SOLN 5ML OP SCH ×3 (09:18→21:48)
[2020-09-02] MEDS: ASPIRIN 81 MG TABLET(ECOTRIN) PO SCH (09:18)
[2020-09-02] MEDS: MULTIVITAMINS TAB 1 TABLET PO SCH (09:18)
[2020-09-02] MEDS: ISOSORBIDE MONONITRATE 30 MG TAB.ER.24H PO SCH (09:18)
[2020-09-02] MEDS: FINASTERIDE 5 MG TABLET (PROSCAR) PO SCH (09:19)
[2020-09-02] MEDS: VANCOMYCIN HCL ORAL SOLUTION 250 MG/5 ML, 80 ML PO SCH ×4 (09:20→21:53)
[2020-09-02] MEDS: AMPICILLIN SODIUM/SULBACTAM NA 1.5 GM in NS 50 ML IV SCH ×2 (09:21→21:48)
--- NOTE | 2020-09-02 10:30 | NUR ---
Informed MD Fernandez this morning ABGs, new order TBAR FIO2 35% with ABGs after 1 hour, informed respiratory therapist and placed order.
[2020-09-02] MEDS: MENTHOL/ZINC OXIDE 113 GM OINT. TP PRN (12:54)
--- NOTE | 2020-09-02 16:30 | NUR ---
MD Fernandez called, informed MD Rebecca Gonzalez is biomass production manager, requested to inform MD Gonzalez on Friday regarding whether or not should ask friend listed as point of contact for consent for trache or inform MD Whitaker next time seen. Informed MD Fernandez TBAR trail this morning lasted only five minutes per respiratory therapist, ordered rate to be increased to 16 and ABGs to be done tomorrow morning. Orders placed.
[2020-09-02] MEDS: GENTAMICIN 120 MG/ ISO-OSM 100 ML PREMIX IV SCH (17:19)
--- NOTE | 2020-09-02 17:30 | NUR ---
Called both contacts listed in chart for patient to discuss trache placement, Jyoti stephenson stated doesn't work and left message for Komal to call facility back.
--- NOTE | 2020-09-02 19:15 | NUR ---
OPENING NOTE SBAR REPORT RECEIVED FROM RIDGE MCINTOSH. CARE ASSUMED. PT LAYING IN BED. PT INTUBATED. ETT SIZE 7.5 LIP LINE 25. VENT SETTINGS SIMV 16, TV 500, FIO2 35%, PEEP 5, PS 12. O2 SAT 96%. PT TOLERATING SETTING WELL. PT SINUS RHYTHM ON MONITOR WITH 1ST DEGREE AV BLOCK. RADIAL AND PEDAL PULSES PRESENT. 1+ PITTING EDEMA NOTED TO BILATERAL UPPER AND LOWER EXTREMITIES. PT HAS RUE PICC LINE RUNNING D5 1/2 NS @ 100 ML/HR. PT HAS NG TUBE RUNNING IN RIGHT NARE RUNNING GLUCERNA @ 60 CC/HR. ABDOMEN SOFT NON DISTENDED. PT HAS ZARATE CATHETER FLOWING TO GRAVITY. URINE YELLOW. PT HAS RECTAL TUBE IN PLACE. LIQUID BROWN STOOL PRESENT IN TUBE AND BAG. PT HAS SKIN TEAR TO SACRUM. FOAM DRESSING IN PLACE. DRESSING CLEAN DRY AND INTACT. BED LOCKED IN LOWEST POSITION. SAFETY PRECAUTIONS IN PLACE. CALL LIGHT WITHIN REACH. WILL CONTINUE TO MONITOR.
--- NOTE | 2020-09-02 19:41 | NUR ---
Endorsed patient and gave report to NOC shift nurse. Side rails x 3 up. Call light with in reach.
[2020-09-02] MEDS: TAMSULOSIN HCL 0.4 MG CAP PO SCH (21:48)
[2020-09-02] MEDS: ENOXAPARIN SODIUM 30 MG/0.3 ML SYRINGE SUBCUT SCH (21:55)
--- NOTE | 2020-09-02 22:30 | NUR ---
CLOSING NOTE PT LAYING IN BED. NO SIGNS AND SYMPTOMS OF DISTRESS NOTED. SBAR REPORT GIVEN TO MADDIE MCINTOSH. CARE ENDORSED.
[2020-09-03] VITALS (31 sets, daily range): BP systolic 107–173
--- NOTE | 2020-09-03 | NUR ---
Dr Fernandez to see patient. Orders received with specific instructions for Nursing and RT to communicate reasons why patient is not tolerating cpap and t bar trials. Dr Fernandez request description of symptoms when patient cannot tolerate changes in vent settings.
[2020-09-03] MEDS: INSULIN REGULAR, HUMAN 100 UNITS/ML, 10 ML VIAL (humuLIN R) SUBCUT PRN ×4 (00:17→17:56)
--- NOTE | 2020-09-03 00:30 | NUR ---
incontinent care provided as patient's rectal tube continues to leak around. Patient requires reposition and medication for pain as perineal area is very sensitive due to redness and scrotal edema. Repositioned for comfort at this time.
[2020-09-03] MEDS: HYDROmorphone 1 MG INJ. 1 MG/ML AMPUL IVP PRN ×2 (00:36→05:29)
[2020-09-03 06:15] LABS: LYMPHOCYTES # (AUTO) 0.8 K/uL (1.0-5.5); MONOCYTES # (AUTO) 0.5 K/uL (0.0-1.0); WHITE BLOOD COUNT (AUTO) 8.4 K/uL (4.8-10.8)
[2020-09-03 06:20] LABS: BASOPHILS % (AUTO) 0.3 % (0.0-2.0); EOSINOPHILS % (AUTO) 0.1 % (0.0-4.0); HEMATOCRIT 25.4 % (36-54); HEMOGLOBIN 8.1 g/dL (14.0-18.0); LYMPHOCYTES % (AUTO) 9.3 % (20.5-51.5); MEAN CORPUSCULAR HEMOGLOBIN 25 pg (27-31); MEAN CORPUSCULAR HGB CONC 32 % (32-36); MEAN CORPUSCULAR VOLUME 79 fL (79.0-98.0); MONOCYTES % (AUTO) 6.1 % (1.7-9.3); NEUTROPHILS # (AUTO) 7.1 K/uL (1.8-7.7); NEUTROPHILS % (AUTO) 84.2 % (40.0-70.0); PLATELET COUNT (AUTO) 314 K/uL (130-430); RED BLOOD CELL COUNT(AUTO) 3.22 MIL/uL (4.2-6.2); RED CELL DISTRIBUTION WIDTH 18.5 % (9.0-15.0)
[2020-09-03 07:08] LABS: ALANINE AMINOTRANSFERASE 23 U/L (12-78); ALBUMIN 1.7 g/dL (3.4-4.8); ANION GAP 7 (5-15); ASPARTATE AMINOTRANSFERASE 15 U/L (10-37); CALCIUM 7.6 mg/dL (8.4-11.0); CHLORIDE 108 mmol/L (98-107); CREATININE 1.19 mg/dL (0.55-1.30); GLUCOSE 227 mg/dL (70-99); PHOSPHORUS 3.3 mg/dL (2.7-4.5); POTASSIUM 4.3 mmol/L (3.5-5.1); SODIUM SERUM 138 mmol/L (136-145); TOTAL BILIRUBIN 0.2 mg/dL (0.0-1.0); UREA NITROGEN, BLOOD 29 mg/dL (8-21)
--- NOTE | 2020-09-03 07:42 | NUR ---
Opening Note received bedside SBAR report from manufacturing supervisor 2nd shift RN, respirations even and unlabored on mechanical ventilator, tube feeding infusing well to NGT, stinson catheter draining to gravity, rectal tube draining to gravity, no acute distress noted, educated patient on use of call light and asked to call for assistance, call light in reach, bed in low and locked position, bed alarm on.
[2020-09-03] MEDS ORDERED: VANCOMYCIN HCL ORAL SOLUTION 250 MG/5 ML, 80 ML NG SCH (08:12)
--- NOTE | 2020-09-03 08:30 | NUR ---
Paged Dr. Fernandez with results of ABGs, spoke to Riddhi with the exchange. Awaiting call back.
--- NOTE | 2020-09-03 08:35 | NUR ---
MD Dr. Fernandez provided with ABGs, new orders received.
--- NOTE | 2020-09-03 08:55 | NUR ---
Physician Rounds Dr. Manzo bedside, new medication orders received, verified with read back.
[2020-09-03] MEDS: ISOSORBIDE MONONITRATE 30 MG TAB.ER.24H PO SCH (09:00)
[2020-09-03] MEDS: PANTOPRAZOLE SODIUM 40 MG/VIAL (PROTONIX) IVP SCH ×2 (09:01→21:35)
[2020-09-03] MEDS: AMPICILLIN SODIUM/SULBACTAM NA 1.5 GM in NS 50 ML IV SCH (09:02)
[2020-09-03] MEDS: ASPIRIN 81 MG TAB.CHEW NG SCH (09:02)
[2020-09-03] MEDS: DOCUSATE SODIUM 100 MG/10 ML UDC NG SCH (09:02)
[2020-09-03] MEDS: MULTIVITAMINS TAB 1 TABLET NG SCH (09:02)
[2020-09-03] MEDS: FINASTERIDE 5 MG TABLET (PROSCAR) NG SCH (09:03)
[2020-09-03] MEDS: DORZOLAMIDE 2% OPHTHALMIC SOLN 5ML OP SCH ×3 (09:03→21:00)
--- NOTE | 2020-09-03 09:20 | NUR ---
CPAP patient placed onto CPAP mode by respiratory therapist Kerry Cohen, CPAP 5, PS 16, Fio2 35%, patient tolerating well, O2Sat 96%, per RT she will take ABGs in two hours.
--- NOTE | 2020-09-03 09:28 | NUR ---
Chest X-ray spoke with Dr. Fernandez, read him results of chest x-ray, received orders for CT scan, verified with read back.
[2020-09-03] MEDS ORDERED: FIDAXOMICIN 200 MG TABLET NG ONE (10:00)
--- NOTE | 2020-09-03 10:00 | NUR ---
Physician Rounds Dr. Esparza bedside, no new orders.
--- NOTE | 2020-09-03 10:45 | NUR ---
PICC line dressing change dressing change to right upper arm PICC line due, educated patient on purpose and procedure for PICC line dressing change, sterile technique observed, no redness or swelling noted to PICC line site, PICC line securement device in place, biopatch in place, transparent dressing in place, patient tolerated well, no acute distress noted.
--- NOTE | 2020-09-03 10:58 | NUR ---
to CT patient taken to CT via gurney, patient on cardiac surgeon with Lakisha MCINTOSH for transport, respiratory therapist Kerry Cohen transporting with patient for respiratory support on oxygen therapy and ambu bag, no acute distress noted.
--- NOTE | 2020-09-03 11:31 | NUR ---
back from CT patient brought back to room from CT scan via gurney by RN and RT, RT connected patient from ambu bag and oxygen to mechanical ventilator, previous ventilator settings in place, bilateral soft wrist restraints in place, IV fluid infusing well to right upper arm PICC, no acute distress noted, no pain noted using FLACC scale, call light in reach, bed in low and locked position, bed alarm on.
--- NOTE | 2020-09-03 12:00 | NUR ---
1100 assisted in transfer to ct scan. bagged pt.placed pt back on vent same settings post ct scan transfer. will cont to monitor. Addendum: 09/03/20 at 1201 by Tamanna Adams RT Amended: Links added.
[2020-09-03] MEDS: D5/0.45 NS 1,000 ML IV SCH (12:02)
--- NOTE | 2020-09-03 12:24 | NUR ---
Paged Dr. Fernandez, spoke to Elidia with the exchange. Awaiting call back to inform of ABG results.
--- NOTE | 2020-09-03 12:29 | NUR ---
Informed Dr. Fernandez of ABG results, no new orders at this time.
--- NOTE | 2020-09-03 12:33 | NUR ---
Paged Dr. Fernandez to provide CT preliminary result.
--- NOTE | 2020-09-03 12:45 | NUR ---
Physician Rounds Dr. Whitaker at bedside examining patient, informed him that Dr. Fernandez is aware of CXR and CT results, informed him that per pharmacy imdur cannot be crushed and therefore cannot be given NGT, new medication orders received, verified with read back.
--- NOTE | 2020-09-03 14:59 | NUR ---
1410 ETT PULLED BACK [address] BUTTS ORDER FROM 25CM LL TO 23CM LL. VOLUMES ACHEIVED, SAT 98%. RN AWARE. Addendum: 09/03/20 at 1502 by Tamanna Adams RT Amended: Links added.
[2020-09-03] MEDS ORDERED: ISOSORBIDE DINITRATE 10 MG TABLET (ISORDIL) PO SCH (15:00)
[2020-09-03] MEDS: ISOSORBIDE DINITRATE 10 MG TABLET (ISORDIL) NG SCH ×2 (15:27→21:36)
--- NOTE | 2020-09-03 15:30 | NUR ---
Wound Care educated patient on purpose and procedure for wound care, wound care completed to sacrum, patient tolerated well, no pain noted using FLACC scale, no acute distress noted, see ICU shift assessment for wound care.
--- NOTE | 2020-09-03 16:04 | NUR ---
Nutrition F/U Admitting Diagnosis: Septic shock, ARF Medical History Comment: PMH: HTN, DM, BPH, mild dementia, DJD per physician notes Pt also found w/ severe sepsis w/ shock, acute respiratory failure, dehydration, C[place], moderate malnutrition, anemia per physician notes 08/28/2020 notes: Dementia w/ Alzheimer's type, Metabolic encephalopathy SARS-CoV-2 (PCR) Negative 08/23 SARS-CoV-2 (Rapid) Negative 08/23 Subjective Information: Pt is in ICU, remains in an isolation room. RD visit was deferred d/t lack of PPE. RN reported that pt has been tolerating Glucerna at 60 ml/hr, though pt does have elevated BG levels. RN reported pt will likely have a bronchoscopy tomorrow and possible thoracentesis. RN also verified pt's Banatrol supplement order, and reported that pt continues w/ loose stools and flexiseal a/w C. diff. Current TF regimen remains adequate/appropriate. Current Diet Order/Nutrition Support: Glucerna 1.2 at 60 ml/hr (goal rate), Banatrol TID, Free Water Flush: 100 CC Q8H via NGT x3 days Pertinent Medications: MVI, lovenox, vancomycin, colace, SSI Pertinent Labs: BUN 29 H, CRE 1.19 WNL (improved), BG 227 H, POC BG 251 H, WBC 8.4 WNL (improved) Mu scale: 12; RD reviewed hard chart for wound photos; please refer to Sales Leader note 08/29; no PIs noted Current % PO N/A Estimated Energy Expenditure (kcals/day) 1737 kcal/day (REE using PSU 2003b d/t critical illness on vent support) -- minute volume: 11/temperature: 37 degrees C Estimated Protein Required (g/day) 67-101 gm/day (0.8-1.2 gm/kg CBW for ARF, geriatric status, sepsis) Estimated Fluid Required (l/day) Per physician d/t ARF Problem/Etiology/Signs/Symptoms Increased nutritional needs related to metabolic demands as evidenced by estimated nutritional requirements for sepsis. (*ongoing) Altered nutrition-related labs related to endocrine dysfunction as evidenced by elevated BG and POC BG labs. (*ongoing) Altered GI function r/t medication interaction AEB diarrhea on antibiotics. (*ongoing) Expected Outcomes/Goals - Monitor tolerance to EN support w/ goal of pt meeting over 80% of estimated nutritional requirements, labs trending WNL, normal GI function, and skin integrity/wt maintenance Dietitian Recommendations * Recommend continuing Glucerna 1.2 at 60 ml/hr (goal rate), Banatrol TID, Free Water Flush: 100 CC Q8H via NGT Provides: 1728 kcal/day, 86 gm protein/day, and 1159 ml free water/day Meets: 99% of estimated caloric needs and 85% of upper end of estimated protein needs Follow Up High Risk: F/U in 2-3 days
--- NOTE | 2020-09-03 16:08 | NUR ---
Dietitian Recommendations * Recommend continuing Glucerna 1.2 at 60 ml/hr (goal rate), Banatrol TID, Free Water Flush: 100 CC Q8H via NGT Provides: 1728 kcal/day, 86 gm protein/day, and 1159 ml free water/day Meets: 99% of estimated caloric needs and 85% of upper end of estimated protein needs LP, RD Please refer to Nutrition F/U for details.
--- NOTE | 2020-09-03 17:00 | NUR ---
Spoke with Physician spoke with Dr. Fernandez, informed him that patient has been on CPAP mode since this morning, informed him that current O2Sat is 97%, respirations 41, new ventilator setting orders received, verified with read back, informed RT Tamanna.
--- NOTE | 2020-09-03 17:10 | NUR ---
Ventilator settings respiratory therapist Froylan adjusted ventilator to ordered settings, AC 16, TV 500, PEEP 5, FiO2 40%.
[2020-09-03] MEDS: GENTAMICIN 120 MG/ ISO-OSM 100 ML PREMIX IV SCH (17:54)
--- NOTE | 2020-09-03 19:22 | NUR ---
Closing Note SBAR report given to receiving RN, patient resting in bed, respirations even and unlabored on mechanical ventilator, no pain noted using FLACC scale, stinson catheter draining to gravity, rectal tube draining to gravity, isolation precautions in place, educated patient on use of call light and asked to call for assistance, call light in reach, bed in low and locked position, bed alarm on, care endorsed to Kameron RN.
[2020-09-03] MEDS: ENOXAPARIN SODIUM 30 MG/0.3 ML SYRINGE SUBCUT SCH (21:35)
[2020-09-03] MEDS: TAMSULOSIN HCL 0.4 MG CAP NG SCH (21:36)
[2020-09-03] MEDS: FIDAXOMICIN 200 MG TABLET NG SCH (21:38)
[2020-09-04] VITALS (31 sets, daily range): BP systolic 107–148
[2020-09-04] MEDS: INSULIN REGULAR, HUMAN 100 UNITS/ML, 10 ML VIAL (humuLIN R) SUBCUT PRN ×4 (00:30→18:03)
[2020-09-04 07:00] LABS: BASOPHILS % (AUTO) 0.5 % (0.0-2.0); EOSINOPHILS % (AUTO) 0.3 % (0.0-4.0); HEMATOCRIT 22.2 % (36-54); HEMOGLOBIN 7.1 g/dL (14.0-18.0); LYMPHOCYTES # (AUTO) 1.1 K/uL (1.0-5.5); LYMPHOCYTES % (AUTO) 14.1 % (20.5-51.5); MEAN CORPUSCULAR HEMOGLOBIN 25 pg (27-31); MEAN CORPUSCULAR HGB CONC 32 % (32-36); MEAN CORPUSCULAR VOLUME 79 fL (79.0-98.0); MONOCYTES # (AUTO) 0.5 K/uL (0.0-1.0); MONOCYTES % (AUTO) 5.9 % (1.7-9.3); NEUTROPHILS # (AUTO) 6.5 K/uL (1.8-7.7); NEUTROPHILS % (AUTO) 79.2 % (40.0-70.0); PLATELET COUNT (AUTO) 315 K/uL (130-430); RED BLOOD CELL COUNT(AUTO) 2.82 MIL/uL (4.2-6.2); RED CELL DISTRIBUTION WIDTH 18.5 % (9.0-15.0); WHITE BLOOD COUNT (AUTO) 8.2 K/uL (4.8-10.8)
--- NOTE | 2020-09-04 07:30 | NUR ---
Opening Note Received plan of care via sbar from endorsing RN.
--- NOTE | 2020-09-04 08:00 | NUR ---
RT NOTE: 0800 Pt placed on CPAP trial. Pt only tolerated for 20 mins. Placed pt back on AC at 820. RN made aware. Addendum: 09/04/20 at 0953 by Lynn Reynolds RT Amended: Links added.
[2020-09-04] MEDS: DORZOLAMIDE 2% OPHTHALMIC SOLN 5ML OP SCH ×3 (09:00→21:29)
[2020-09-04] MEDS: DOCUSATE SODIUM 100 MG/10 ML UDC NG SCH (09:00)
[2020-09-04] MEDS: PANTOPRAZOLE SODIUM 40 MG/VIAL (PROTONIX) IVP SCH ×2 (09:10→21:43)
[2020-09-04] MEDS: ASPIRIN 81 MG TAB.CHEW NG SCH (09:10)
[2020-09-04] MEDS: D5/0.45 NS 1,000 ML IV SCH (09:10)
[2020-09-04] MEDS: ISOSORBIDE DINITRATE 10 MG TABLET (ISORDIL) NG SCH ×3 (09:11→21:43)
[2020-09-04] MEDS: MULTIVITAMINS TAB 1 TABLET NG SCH (09:11)
[2020-09-04] MEDS: FINASTERIDE 5 MG TABLET (PROSCAR) NG SCH (09:12)
[2020-09-04] MEDS: FIDAXOMICIN 200 MG TABLET NG SCH ×2 (09:13→21:44)
[2020-09-04 09:20] LABS: ALANINE AMINOTRANSFERASE 20 U/L (12-78); ALBUMIN 1.5 g/dL (3.4-4.8); ANION GAP 7 (5-15); ASPARTATE AMINOTRANSFERASE 14 U/L (10-37); CALCIUM 7.4 mg/dL (8.4-11.0); CHLORIDE 110 mmol/L (98-107); CREATININE 1.21 mg/dL (0.55-1.30); GLUCOSE 161 mg/dL (70-99); PHOSPHORUS 2.5 mg/dL (2.7-4.5); SODIUM SERUM 140 mmol/L (136-145); TOTAL BILIRUBIN 0.2 mg/dL (0.0-1.0); UREA NITROGEN, BLOOD 28 mg/dL (8-21)
[2020-09-04] MEDS ORDERED: fentaNYL CITRATE/PF 100 MCG/2 ML AMP ONE (09:47)
[2020-09-04] MEDS ORDERED: LIDOCAINE 2% JELLY UROJECT 10 ML MM ONE (09:47)
[2020-09-04] MEDS ORDERED: MIDAZOLAM HCL 5 MG/5 ML VIAL ONE (09:47)
[2020-09-04] MEDS ORDERED: LIDOCAINE 1%, 20 ML MDV 0 ML ONE (09:48)
--- NOTE | 2020-09-04 10:03 | NUR ---
Tread Tuber Machine Operator: Consent FRONT END SOFTWARE DEVELOPER received call from advertising account representative. stating pt. is going to have a procedure today, Bronchoscopy today at 3pm. He will be needing a Thoracentesis as well as a possible Trach/Peg. Pt. [place] family members [place]. His son lives in the [facility]. The person listed on the face sheet, friend, Komal John, has been in contact with pts. son. FRONT END SOFTWARE DEVELOPER called pts. friend Mr. John to get more info. re pts. son. Alvaro spoke in a heavy accent and he was talking loud in excitement. He stated, "He cannot give consent for the procedures. He added pts. son is Juvenal Alvarez. lives in [facility]. He plans to call him tonight at 11pm [place]. time, 9 am [facility] time. FRONT END SOFTWARE DEVELOPER asked him for son's phone number and Mr. John stated it was impossible as he did not have the phone number on him. He will call later tonight with the phone number and leave a message. FRONT END SOFTWARE DEVELOPER called [facility] where pt. has been living. FRONT END SOFTWARE DEVELOPER spoke to admissions who stated they had the same contacts as FRONT END SOFTWARE DEVELOPER had on the face sheet. They did not have a phone number listed for pts. son. Addendum: 09/04/20 at 1027 by Gaby Humphries MSW Pt. has been at [facility] since 10/22/17. Marlene at [facility] stated there is no DPOA forms. There is a POLST she stated should have been sent over with pt. which indicates pt. is Full Code. FRONT END SOFTWARE DEVELOPER will inform Rn. re. Constent status. FRONT END SOFTWARE DEVELOPER called and spoke to Rn in ICU. He stated he gathered all the same info. He will inform the physician re. pts. consent/next of kin status. FRONT END SOFTWARE DEVELOPER will remain available as needed.
--- NOTE | 2020-09-04 10:45 | NUR ---
Dr. Ley at bedside. Provided patient update. Discussed Vancomycin and to continue administration. Discussed with pharmacy and pharmacy will re enter order that was automatically cancelled by the system.
--- NOTE | 2020-09-04 11:55 | NUR ---
Flexiseal Reinserted flexiseal with second RN at bedside. Inserted flexiseal and inflated with 45 cc of water as per instruction. Patient tolerated procedure without complication or complaint.
[2020-09-04] MEDS: VANCOMYCIN HCL ORAL SOLUTION 250 MG/5 ML, 80 ML NG SCH ×3 (12:16→21:44)
--- NOTE | 2020-09-04 15:00 | NUR ---
Dr. Gonzalez at bedside. Provided patient update. No new orders.
[2020-09-04] MEDS: GENTAMICIN 100 MG/ ISO-OSM 50 ML PREMIX IV SCH (18:02)
--- NOTE | 2020-09-04 19:15 | NUR ---
Dr. Fernandez at bedside. Provided patient update. Cancelled bronchoscopy.
--- NOTE | 2020-09-04 19:18 | NUR ---
Closing Note Provided plan of care via sbar to receiving RN.
--- NOTE | 2020-09-04 19:30 | NUR ---
Opening note: Report received from day RN. Assuming care now.
[2020-09-04 21:39] LABS: HEMATOCRIT 30.6 % (36-54); HEMOGLOBIN 9.9 g/dL (14.0-18.0)
[2020-09-04] MEDS: TAMSULOSIN HCL 0.4 MG CAP NG SCH (21:43)
[2020-09-04] MEDS: ENOXAPARIN SODIUM 30 MG/0.3 ML SYRINGE SUBCUT SCH (21:48)
--- NOTE | 2020-09-04 22:03 | NUR ---
PAGED FOR ORDERS DIALED: [phone] SPOKE: RODGER
--- NOTE | 2020-09-04 23:19 | NUR ---
Dr Fernandez did not return the page. Paged to obtain orders for CPAP as reported by day RN. Patient resting now. Will report to oncoming nurse.
[2020-09-05] VITALS (35 sets, daily range): BP systolic 91–147
[2020-09-05] MEDS: INSULIN REGULAR, HUMAN 100 UNITS/ML, 10 ML VIAL (humuLIN R) SUBCUT PRN ×3 (01:03→17:16)
[2020-09-05 06:02] LABS: ANION GAP 3 (5-15); CALCIUM 7.8 mg/dL (8.4-11.0); CHLORIDE 107 mmol/L (98-107); CREATININE 1.26 mg/dL (0.55-1.30); GLUCOSE 138 mg/dL (70-99); POTASSIUM 3.8 mmol/L (3.5-5.1); SODIUM SERUM 134 mmol/L (136-145); UREA NITROGEN, BLOOD 23 mg/dL (8-21)
[2020-09-05 06:06] LABS: BASOPHILS % (AUTO) 0.4 % (0.0-2.0); EOSINOPHILS % (AUTO) 0.5 % (0.0-4.0); HEMATOCRIT 29.6 % (36-54); HEMOGLOBIN 9.5 g/dL (14.0-18.0); LYMPHOCYTES % (AUTO) 22.5 % (20.5-51.5); MEAN CORPUSCULAR HEMOGLOBIN 26 pg (27-31); MEAN CORPUSCULAR HGB CONC 32 % (32-36); MONOCYTES # (AUTO) 0.8 K/uL (0.0-1.0); MONOCYTES % (AUTO) 9.1 % (1.7-9.3); NEUTROPHILS # (AUTO) 5.9 K/uL (1.8-7.7); NEUTROPHILS % (AUTO) 67.5 % (40.0-70.0); PLATELET COUNT (AUTO) 373 K/uL (130-430); RED BLOOD CELL COUNT(AUTO) 3.66 MIL/uL (4.2-6.2); WHITE BLOOD COUNT (AUTO) 8.8 K/uL (4.8-10.8)
[2020-09-05 06:08] LABS: MEAN CORPUSCULAR VOLUME 79 fL (79.0-98.0)
[2020-09-05] MEDS: D5/0.45 NS 1,000 ML IV SCH (06:14)
--- NOTE | 2020-09-05 07:19 | NUR ---
Opening Note Received plan of care via sbar from endorsing RN.
--- NOTE | 2020-09-05 08:05 | NUR ---
Dr. Esparza at bedside. Provided patient update. to place new orders including chest xray for 09/06.
--- NOTE | 2020-09-05 08:22 | NUR ---
Received call from Juvenal Meena, son of Juvenal Robledo (ICU bed 7). Son lives in [facility] and has a phone number [phone]. Charge nurse, Dr. Esparza, and primary RN on the phone with son who provided consent to tracheostomy and peg and any future procedures deemed necessary to help better his father.
[2020-09-05] MEDS: FINASTERIDE 5 MG TABLET (PROSCAR) NG SCH (08:31)
[2020-09-05] MEDS: DORZOLAMIDE 2% OPHTHALMIC SOLN 5ML OP SCH ×3 (08:31→21:37)
[2020-09-05] MEDS: PANTOPRAZOLE SODIUM 40 MG/VIAL (PROTONIX) IVP SCH ×2 (08:31→21:36)
[2020-09-05] MEDS: ISOSORBIDE DINITRATE 10 MG TABLET (ISORDIL) NG SCH ×3 (08:31→21:37)
[2020-09-05] MEDS: FIDAXOMICIN 200 MG TABLET NG SCH ×2 (08:31→21:37)
[2020-09-05] MEDS: MULTIVITAMINS TAB 1 TABLET NG SCH (08:31)
[2020-09-05] MEDS: ASPIRIN 81 MG TAB.CHEW NG SCH (08:31)
[2020-09-05] MEDS: VANCOMYCIN HCL ORAL SOLUTION 250 MG/5 ML, 80 ML NG SCH ×4 (08:32→21:38)
--- NOTE | 2020-09-05 08:38 | NUR ---
Received call from Komal friend of Juvenal. Clarified phone number to son in [facility] (also Juvenal Robledo) at [phone]. [phone] is the [place] #, [phone] is [facility]'s number, and [phone] is the actual phone #.
--- NOTE | 2020-09-05 09:05 | NUR ---
RT NOTES Vent to cpap [address] order. no immediate adverse reactions noted. will monitor pt.
--- NOTE | 2020-09-05 09:05 | NUR ---
RT NOTES Vent to cpap [address] order. no immediate adverse reactions noted. will monitor pt.
[2020-09-05] MEDS: ACETAMINOPHEN 325 MG TABLET NG PRN (09:06)
--- NOTE | 2020-09-05 13:15 | NUR ---
WOUND RE-EVALUATION: Late note for 131 secondary to patient care. Patient received in a Candido Bed with an Isoflex CHANTAL mattress with low air loss therapy, awake, nonverbal, nonresponsive to verbal commands, intubated. Patient is unable to turn in bed independently. Mu Score is a 12. Past Medical History: Diabetes Mellitus, Hypertension, mild Dementia, Benign Prostatic Hypertrophy, Degenerative Joint Disease. Upon arrival to the E.D., the patient was in Acute Respiratory Failure, Sepsis, and Metabolic Acidosis. Intrinsic factors that delay wound healing: Diabetes Mellitus, Acute Respiratory Failure, Sepsis, Metabolic Acidosis, severe Hypoalbuminemia, Hyperglycemia. Extrinsic factors that delay wound healing: Decreased mobility. Fecal management system is in place. Wound Assessment: 1. Gluteal sulcus/Right Buttock: Intertrigo with erythema and MASD. MASD has grown due to loose stool. Site has 90% pink tissue, 10% red tissue. No odor, no drainage. Periwound intact. Wound measures 5.5 cm x 5.5 cm. Recommend: Cleanse wound with normal saline. Apply Calmoseptine cream to open area and perimeter. Apply Venelex ointment to any portion of open tissue not covered by Calmoseptine cream. Cover with Sacral foam dressing. Perform wound care daily, and as needed for dressing soiling or dislodgement. 2. Upper back: Blanchable redness. 3. Pelvic area: Blanchable redness. Recommend continue: Reposition patient side to side only every 2 hours with one pillow underneath trunk and one pillow underneath pelvis at all times. 4. Right Heel: Blanchable redness. Recommend continue: Elevate, offload and float bilateral heels with one pillow lengthwise under each extremity at all times. Also recommend continue: Reposition patient side to side only every hour with 1 pillow underneath pelvis and one pillow underneath trunk on each side of patient -make sure that pillows touch each other (to turn patient side to side place one pillow underneath both pillows on 1 side for one hour, then place 1 pillow underneath both pillows on the other side for one hour). Off-load pressure areas with pillows for pressure re-distribution. Offload, elevate and float bilateral heels with pillows. Perform skin care and monitor skin integrity Q shift. Use Calmoseptine cream on buttocks and other moisture susceptible areas QID and as needed for soiling. Maintain patient on a low air-loss mattress.
--- NOTE | 2020-09-05 16:55 | NUR ---
RT NOTES vent settings back to previous settings per rn's, due to tachypnea.
[2020-09-05] MEDS: GENTAMICIN 100 MG/ ISO-OSM 50 ML PREMIX IV SCH (17:04)
--- NOTE | 2020-09-05 19:39 | NUR ---
Closing Note Provided plan of care via sbar to receiving RN.
[2020-09-05] MEDS: TAMSULOSIN HCL 0.4 MG CAP NG SCH (21:37)
[2020-09-05] MEDS: ENOXAPARIN SODIUM 30 MG/0.3 ML SYRINGE SUBCUT SCH (21:39)
[2020-09-06] VITALS (32 sets, daily range): BP systolic 98–157
[2020-09-06] MEDS: INSULIN REGULAR, HUMAN 100 UNITS/ML, 10 ML VIAL (humuLIN R) SUBCUT PRN ×2 (01:03→12:35)
[2020-09-06] MEDS: D5/0.45 NS 1,000 ML IV SCH ×2 (01:32→21:34)
[2020-09-06] MEDS: HYDROmorphone 1 MG INJ. 1 MG/ML AMPUL IVP PRN (01:32)
[2020-09-06 05:53] LABS: ANION GAP 4 (5-15); CALCIUM 7.7 mg/dL (8.4-11.0); CHLORIDE 109 mmol/L (98-107); CREATININE 1.23 mg/dL (0.55-1.30); GLUCOSE 121 mg/dL (70-99); PHOSPHORUS 3.3 mg/dL (2.7-4.5); POTASSIUM 4.5 mmol/L (3.5-5.1); SODIUM SERUM 139 mmol/L (136-145); UREA NITROGEN, BLOOD 22 mg/dL (8-21)
[2020-09-06 07:46] LABS: BASOPHILS % (AUTO) 0.2 % (0.0-2.0); EOSINOPHILS # (AUTO) 0.1 K/uL (0.0-0.4); EOSINOPHILS % (AUTO) 0.9 % (0.0-4.0); HEMATOCRIT 28.3 % (36-54); HEMOGLOBIN 9.2 g/dL (14.0-18.0); LYMPHOCYTES # (AUTO) 2.1 K/uL (1.0-5.5); LYMPHOCYTES % (AUTO) 26.2 % (20.5-51.5); MEAN CORPUSCULAR HEMOGLOBIN 26 pg (27-31); MEAN CORPUSCULAR HGB CONC 33 % (32-36); MEAN CORPUSCULAR VOLUME 81 fL (79.0-98.0); MONOCYTES # (AUTO) 0.7 K/uL (0.0-1.0); MONOCYTES % (AUTO) 9.2 % (1.7-9.3); NEUTROPHILS % (AUTO) 63.5 % (40.0-70.0); PLATELET COUNT (AUTO) 372 K/uL (130-430); RED BLOOD CELL COUNT(AUTO) 3.52 MIL/uL (4.2-6.2); RED CELL DISTRIBUTION WIDTH 18.5 % (9.0-15.0); WHITE BLOOD COUNT (AUTO) 7.8 K/uL (4.8-10.8)
[2020-09-06] MEDS: ISOSORBIDE DINITRATE 10 MG TABLET (ISORDIL) NG SCH ×3 (09:21→21:26)
[2020-09-06] MEDS: MULTIVITAMINS TAB 1 TABLET NG SCH (09:21)
[2020-09-06] MEDS: ASPIRIN 81 MG TAB.CHEW NG SCH (09:21)
[2020-09-06] MEDS: PANTOPRAZOLE SODIUM 40 MG/VIAL (PROTONIX) IVP SCH ×2 (09:22→21:25)
[2020-09-06] MEDS: FIDAXOMICIN 200 MG TABLET NG SCH ×2 (09:27→21:26)
[2020-09-06] MEDS: VANCOMYCIN HCL ORAL SOLUTION 250 MG/5 ML, 80 ML NG SCH (09:27)
[2020-09-06] MEDS: FINASTERIDE 5 MG TABLET (PROSCAR) NG SCH (09:27)
[2020-09-06] MEDS: DORZOLAMIDE 2% OPHTHALMIC SOLN 5ML OP SCH ×3 (09:28→21:34)
--- NOTE | 2020-09-06 10:39 | NUR ---
RT NOTES PS to [address] Fernandez's order. will endorse to RT Tamanna
--- NOTE | 2020-09-06 15:29 | NUR ---
Nutrition F/U RD reviewed pt's current EMR record including diet hx, MD notes, RN notes, pertinent labs/meds/procedures, care trends, and care activity Admitting Diagnosis: Septic shock, ARF Medical History Comment: PMH: HTN, DM, BPH, mild dementia, DJD per physician notes Pt also found w/ severe sepsis w/ shock, acute respiratory failure, dehydration, [place], moderate malnutrition, anemia per physician notes 08/28/2020 MD notes: Dementia w/ Alzheimer's type, Metabolic encephalopathy SARS-CoV-2 (PCR) Negative 08/23 SARS-CoV-2 (Rapid) Negative 08/23 Subjective Information: Pt remains in ICU on isolation protocol, and RD visit was deferred d/t lack of PPE. Per EMR, pt receiving TF Glucerna at 60 ml/hr w/ 0 ml residual, and BG labs and POC labs have trended down since previous RD assessment. Per RN note bronchoscopy was cancelled on 09/04. Per MD note, pt now w/ C. diff colitis, and still having loose stools but w/ less diarrhea. MD consult note stated pt will need trach and per MD note pt on CPAP and a/w extubation. Current TF regimen remains adequate and appropriate to meet pt's needs. Current Diet Order/Nutrition Support: Glucerna 1.2 at 60 ml/hr (goal rate), Banatrol TID, Free Water Flush: 100 CC Q8H via NGT x6 days Pertinent Medications: MVI, lovenox, colace, SSI, protonix, IV D5/0.45 NS @ 50 ml/hr (204 kcal) Pertinent Labs: BUN 22 H, CRE 1.23 WNL, BG 121 H (improved), POC BG 167 H (improved), WBC 7.8 WNL Mu scale: 12; RD reviewed Skid Adzer note 09/05; no PIs noted Current % PO N/A, on EN Estimated Energy Expenditure (kcals/day) 1737 kcal/day (REE using PSU 2002b d/t critical illness on vent support) -- minute volume: 11/temperature: 37 degrees C Estimated Protein Required (g/day) 67-101 gm/day (0.8-1.2 gm/kg CBW for ARF, geriatric status, sepsis) Estimated Fluid Required (l/day) Per physician d/t ARF Problem/Etiology/Signs/Symptoms Increased nutritional needs related to metabolic demands as evidenced by estimated nutritional requirements for sepsis. (*improving via TF) Altered nutrition-related labs related to endocrine dysfunction as evidenced by elevated BG and POC BG labs. (*improving, down trending since previous RD assessment) Altered GI function r/t medication interaction AEB diarrhea on antibiotics. (*ongoing, less diarrhea per MD) Expected Outcomes/Goals - Monitor tolerance to EN support w/ goal of pt meeting over 80% of estimated nutritional requirements, labs trending WNL, normal GI function, and skin integrity/wt maintenance Dietitian Recommendations * Recommend continuing Glucerna 1.2 at 60 ml/hr (goal rate), Banatrol TID, Free Water Flush: 100 CC Q8H via NGT Provides: 1728 kcal/day, 86 gm protein/day, and 1159 ml free water/day Meets: 99% of estimated caloric needs and 85% of upper end of estimated protein needs Follow Up High Risk: F/U in 2-3 days
--- NOTE | 2020-09-06 15:37 | NUR ---
Dietitian Recommendations * Recommend continuing Glucerna 1.2 at 60 ml/hr (goal rate), Banatrol TID, Free Water Flush: 100 CC Q8H via NGT Provides: 1728 kcal/day, 86 gm protein/day, and 1159 ml free water/day Meets: 99% of estimated caloric needs and 85% of upper end of estimated protein needs Please see Nutrition F/U for details. EP,RD
[2020-09-06] MEDS: GENTAMICIN 100 MG/ ISO-OSM 50 ML PREMIX IV SCH (17:46)
--- NOTE | 2020-09-06 20:00 | NUR ---
ORALLY INTUBATED. SUCTIONED WITH COPIOUS AMOUNTS OF THICK WHITE MUCUS OBTAINED. ORAL CARE GIVEN. NGT FEEDING WITH GLUCERNA 1.2 INFUSING AT 60CC/HR. RESIDUAL CHECK 0. NGT FLUSHED WITH 100CC H2O. LANDRY SOFT WRIST RESTRAINTS ON FOR SAFETY. ZARATE CATH PATENT DRAINING CLEAR YELLOW URINE TO GRAVITY. ELIZABETH PICC LINE DRSG D/I. FLEXISEAL IN PLACE WITH WATERY STOOL NOTED. CONTACT ISOLATION OBSERVED. SR.
[2020-09-06] MEDS: TAMSULOSIN HCL 0.4 MG CAP NG SCH (21:26)
[2020-09-06] MEDS: ENOXAPARIN SODIUM 30 MG/0.3 ML SYRINGE SUBCUT SCH (21:27)
--- NOTE | 2020-09-06 22:00 | NUR ---
SUCTIONED. HS CARE DONE. RESISTIVE TO CARE.
--- NOTE | 2020-09-06 23:00 | NUR ---
DR BUTTS IN TO SEE PT, UPDATED ON STATUS. NEW ORDERS GIVEN TO BE IMPLEMENTED.
[2020-09-07] VITALS (33 sets, daily range): BP systolic 108–154
--- NOTE | 2020-09-07 | NUR ---
ACCU-CHEK 167, 2 UNITS REGULAR INSULIN SQ GIVEN PER SLIDING SCALE COV. SUCTIONED. ORAL CARE GIVEN. TURNED Q1 HR.
[2020-09-07] MEDS: INSULIN REGULAR, HUMAN 100 UNITS/ML, 10 ML VIAL (humuLIN R) SUBCUT PRN ×4 (00:13→17:47)
--- NOTE | 2020-09-07 02:00 | NUR ---
DOZES ON AND OFF SUCTIONED. TURNED Q1 HR.
--- NOTE | 2020-09-07 04:00 | NUR ---
STOOL LEAKING AROUND INSERTION SITE IN ANUS. CLEANED. FIDE-CARE, BACK CARE, SKIN CARE, ZARATE CARE RENDERED. SCROTUM CRADLED IN PILLOW COVER. ORAL CARE DONE. PARTIAL LINEN CHANGE. ASSISTS WITH TURNING. ROSE PROC WELL. CIRCULATION CHECK DONE. PULSES PALPABLE. NGT FLUSHED WIT 100CC H2O.
[2020-09-07 05:34] LABS: BASOPHILS # (AUTO) 0.1 K/uL (0.0-0.2); BASOPHILS % (AUTO) 1.1 % (0.0-2.0); EOSINOPHILS # (AUTO) 0.1 K/uL (0.0-0.4); EOSINOPHILS % (AUTO) 0.9 % (0.0-4.0); HEMATOCRIT 28.8 % (36-54); HEMOGLOBIN 9.4 g/dL (14.0-18.0); LYMPHOCYTES # (AUTO) 1.2 K/uL (1.0-5.5); LYMPHOCYTES % (AUTO) 15.4 % (20.5-51.5); MEAN CORPUSCULAR HEMOGLOBIN 26 pg (27-31); MEAN CORPUSCULAR HGB CONC 33 % (32-36); MEAN CORPUSCULAR VOLUME 81 fL (79.0-98.0); MONOCYTES # (AUTO) 0.5 K/uL (0.0-1.0); MONOCYTES % (AUTO) 6.6 % (1.7-9.3); NEUTROPHILS # (AUTO) 5.7 K/uL (1.8-7.7); PLATELET COUNT (AUTO) 424 K/uL (130-430); RED BLOOD CELL COUNT(AUTO) 3.57 MIL/uL (4.2-6.2); RED CELL DISTRIBUTION WIDTH 18.6 % (9.0-15.0); WHITE BLOOD COUNT (AUTO) 7.6 K/uL (4.8-10.8)
--- NOTE | 2020-09-07 06:00 | NUR ---
UO GOOD . TURNED Q1 HR. SUCTIONED Q2 HRS. ACCU-CHEK 159, 2UNITS REGULAR INSULIN SQ GIVEN PER SLIDING SCALE COV. FLEXISEAL IN PLACE. PULSES PALPABLE. REMAINS IN GUARDED CONDITION.
[2020-09-07 06:05] LABS: ANION GAP 6 (5-15); CALCIUM 7.4 mg/dL (8.4-11.0); CHLORIDE 109 mmol/L (98-107); CREATININE 1.31 mg/dL (0.55-1.30); GLUCOSE 179 mg/dL (70-99); PHOSPHORUS 3.4 mg/dL (2.7-4.5); POTASSIUM 4.1 mmol/L (3.5-5.1); SODIUM SERUM 139 mmol/L (136-145); UREA NITROGEN, BLOOD 21 mg/dL (8-21)
--- NOTE | 2020-09-07 07:30 | NUR ---
Opening Note Received report from endorsing RN. Pt awake, unable to follow simple commands, intubated on ventilator. Pt denies pain at this time. No acute distress noted. Bilateral wrist restraints in place for safety, pulses present, no skin breakdown noted. Coude catheter draining yellow urine to gravity.
[2020-09-07] MEDS ORDERED: FUROSEMIDE 20 MG/2 ML VIAL IVP ONE (08:45)
[2020-09-07] MEDS: PANTOPRAZOLE SODIUM 40 MG/VIAL (PROTONIX) IVP SCH ×2 (09:09→21:31)
[2020-09-07] MEDS: ASPIRIN 81 MG TAB.CHEW NG SCH (09:10)
[2020-09-07] MEDS: MULTIVITAMINS TAB 1 TABLET NG SCH (09:10)
[2020-09-07] MEDS: ISOSORBIDE DINITRATE 10 MG TABLET (ISORDIL) NG SCH ×3 (09:10→21:31)
[2020-09-07] MEDS: FINASTERIDE 5 MG TABLET (PROSCAR) NG SCH (09:11)
[2020-09-07] MEDS: DORZOLAMIDE 2% OPHTHALMIC SOLN 5ML OP SCH ×3 (09:11→21:00)
[2020-09-07] MEDS: FIDAXOMICIN 200 MG TABLET NG SCH ×2 (09:11→21:31)
--- NOTE | 2020-09-07 12:10 | NUR ---
Dr. Fernandez notified regarding pt condition. New orders made.
--- NOTE | 2020-09-07 15:22 | NUR ---
1510 PT PLACED ON .35% T BAR. CUFF DEFLATED. SAT 95% HR 94 RR 34. WILL CONT TO MONITOR. RN AWARE. Addendum: 09/07/20 at 1524 by Tamanna Adams RT Amended: Links added.
[2020-09-07] MEDS: metroNIDAZOLE 500 mg/NS 100 ML IV SCH ×2 (15:40→21:38)
--- NOTE | 2020-09-07 16:00 | NUR ---
Dr. Fernandez notified regarding pt condition, new orders made and carried out. Pt placed back to AC settings on ventilator by RT
--- NOTE | 2020-09-07 17:00 | NUR ---
Dr. Doll called unit regarding pt. States he will discuss plan of care with Dr. Ley. No other updates regarding other procedures.
[2020-09-07] MEDS: GENTAMICIN 100 MG/ ISO-OSM 50 ML PREMIX IV SCH (17:22)
[2020-09-07] MEDS: D5/0.45 NS 1,000 ML IV SCH (17:22)
--- NOTE | 2020-09-07 19:13 | NUR ---
Endorsed plan of care to RN.
--- NOTE | 2020-09-07 20:00 | NUR ---
ORALLY INTUBATED. RESPONDS TO TACTILE AND NOXIOUS STIMULI. SUCTIONED WITH COPIOUS AMOUNTS OF PALE GREEN MUCUS OBTAINED. ORAL CARE GIVEN. LANDRY SOFT WRIST RESTRAINTS ON FOR SAFETY. NGT FEEDING WITH GLUCERNA 1.2 INFUSING AT 60CC/HR. RESIDUAL CHECK 0. NGT FLUSHED WITH 100CC H2O. ZARATE CATH PATENT DRAINING CLEAR YELLOW URINE TO GRAVITY. FLEXISEAL IN PLACE WITH YELLOWISH BROWN LOOSE STOOL NOTED. CONTACT ISOLATION OBSERVED.
--- NOTE | 2020-09-07 20:40 | NUR ---
DR HOLLAND HERE, EXAMINED PT. STATED HE WOULD DO A COLONOSCOPY WITH BIOPSY ON PT ABOUT NOONTIME ON FRIDAY, SEP 09.
[2020-09-07] MEDS: TAMSULOSIN HCL 0.4 MG CAP NG SCH (21:31)
[2020-09-07] MEDS: ENOXAPARIN SODIUM 30 MG/0.3 ML SYRINGE SUBCUT SCH (21:32)
--- NOTE | 2020-09-07 22:00 | NUR ---
DR BUTTS HERE, UPDATED ON CONDITION. NEW ORDERS GIVEN TO BE IMPLEMENTED. HS CARE DONE.
[2020-09-08] VITALS (36 sets, daily range): BP systolic 103–134
--- NOTE | 2020-09-08 | NUR ---
SUCTIONED. ORAL CARE GIVEN. TURNED Q1 HR. ACCU-CHEK 173, 2 UNITS REGULAR INSULIN SQ GIVEN PER SLIDING SCALE COV. CIRCULATION CHECK DONE, PULSES PALPABLE.
--- NOTE | 2020-09-08 02:00 | NUR ---
DOZES ON AND OFF. NO DISTRESS NOTED.
--- NOTE | 2020-09-08 04:00 | NUR ---
FLEXISEAL OOZING AROUND INSERTION SITE IN ANUS. CLEANED. FIDE-CARE DONE. CHG BATH GIVEN. ORAL CARE, ZARATE CARE, BACK CARE, SKIN CARE RENDERED. SCROTUM CRADLED WITH PILLOW COVER. PARTIAL LINEN CHANGE. ASSISTS WITH TURNING. ROSE PROC WELL. RESIDUAL CHECK 0. NGT FLUSHED WITH 100CC H2O.
[2020-09-08 05:30] LABS: BASOPHILS % (AUTO) 0.6 % (0.0-2.0); EOSINOPHILS % (AUTO) 0.7 % (0.0-4.0); HEMATOCRIT 29.2 % (36-54); HEMOGLOBIN 9.5 g/dL (14.0-18.0); LYMPHOCYTES # (AUTO) 1.1 K/uL (1.0-5.5); LYMPHOCYTES % (AUTO) 18.7 % (20.5-51.5); MEAN CORPUSCULAR HEMOGLOBIN 26 pg (27-31); MEAN CORPUSCULAR HGB CONC 32 % (32-36); MEAN CORPUSCULAR VOLUME 80 fL (79.0-98.0); MONOCYTES # (AUTO) 0.5 K/uL (0.0-1.0); MONOCYTES % (AUTO) 8.4 % (1.7-9.3); NEUTROPHILS # (AUTO) 4.2 K/uL (1.8-7.7); NEUTROPHILS % (AUTO) 71.6 % (40.0-70.0); PLATELET COUNT (AUTO) 448 K/uL (130-430); RED BLOOD CELL COUNT(AUTO) 3.64 MIL/uL (4.2-6.2); RED CELL DISTRIBUTION WIDTH 19.2 % (9.0-15.0); WHITE BLOOD COUNT (AUTO) 5.9 K/uL (4.8-10.8)
[2020-09-08 06:00] LABS: ANION GAP 7 (5-15); CALCIUM 7.2 mg/dL (8.4-11.0); CHLORIDE 108 mmol/L (98-107); CREATININE 1.27 mg/dL (0.55-1.30); GLUCOSE 175 mg/dL (70-99); PHOSPHORUS 3.6 mg/dL (2.7-4.5); POTASSIUM 4.1 mmol/L (3.5-5.1); SODIUM SERUM 139 mmol/L (136-145); UREA NITROGEN, BLOOD 22 mg/dL (8-21)
--- NOTE | 2020-09-08 06:00 | NUR ---
UO GOOD. TURNED Q1 HR. FLEXISEAL IN PLACE. ACCU-CHEK 152, 2 UNITS REGULAR INSULIN SQ GIVEN. REMAINS IN GUARDED CONDITION.
[2020-09-08] MEDS: metroNIDAZOLE 500 mg/NS 100 ML IV SCH ×3 (06:07→23:11)
[2020-09-08] MEDS: INSULIN REGULAR, HUMAN 100 UNITS/ML, 10 ML VIAL (humuLIN R) SUBCUT PRN ×2 (06:30→13:51)
--- NOTE | 2020-09-08 07:35 | NUR ---
RT NOTES Vent to cpap [address] order. no adverse reactions noted. will monitor pt.
--- NOTE | 2020-09-08 08:00 | NUR ---
AM ASSESSMENT. PT AWAKE, ORAL CARE DONE, NGT FEEDING CLAMPED, TURNED PT TO OPPOSITE SIDE, GASTRIC RESIDUAL NONE, FEEDING RESUMED AT 60 ML PER HR, PLACED PILLOW UNDER HIS LEGS, AND HIS BACK, WILL CONTINUE TO MONITOR.
[2020-09-08] MEDS: PANTOPRAZOLE SODIUM 40 MG/VIAL (PROTONIX) IVP SCH ×2 (08:47→21:57)
[2020-09-08] MEDS: ISOSORBIDE DINITRATE 10 MG TABLET (ISORDIL) NG SCH ×3 (08:48→21:57)
[2020-09-08] MEDS: FINASTERIDE 5 MG TABLET (PROSCAR) NG SCH (08:48)
[2020-09-08] MEDS: ASPIRIN 81 MG TAB.CHEW NG SCH (08:48)
[2020-09-08] MEDS: FIDAXOMICIN 200 MG TABLET NG SCH ×2 (08:48→21:59)
[2020-09-08] MEDS: MULTIVITAMINS TAB 1 TABLET NG SCH (08:48)
[2020-09-08] MEDS: DORZOLAMIDE 2% OPHTHALMIC SOLN 5ML OP SCH ×3 (08:52→21:58)
[2020-09-08] MEDS: ACETAMINOPHEN 325 MG TABLET NG PRN (08:58)
--- NOTE | 2020-09-08 09:05 | NUR ---
RT NOTES PS [address] order. will monitor pt
--- NOTE | 2020-09-08 09:10 | NUR ---
. DR HOLLAND IN TO SEE PATIENT, PLAN TO DO COLONOSCOPY TOMORROW (FRIDAY)
[2020-09-08] MEDS ORDERED: FUROSEMIDE 20 MG/2 ML VIAL IVP ONE (10:15)
--- NOTE | 2020-09-08 10:50 | NUR ---
RT NOTES Despite ABG result and tachypnea, Dr galvan ordered to place pt on tbar. @1120 called to bedside due to pt desaturation in the 70s. Placed back on previous AC settings. Rn at bedside aware. @1140 place on simv [address] galvan's order
--- NOTE | 2020-09-08 11:23 | NUR ---
Paged out to Dr. Fernandez, Patient O2 Saturation - 70s on T-bar.
[2020-09-08] MEDS: D5/0.45 NS 1,000 ML IV SCH (12:57)
[2020-09-08] MEDS: HYDROmorphone 1 MG INJ. 1 MG/ML AMPUL IVP PRN (13:47)
--- NOTE | 2020-09-08 13:47 | NUR ---
ANXIETY. PT WAS JUST TURNED TO HIS SIDE EARLIER, NGT SLIPPED OUT FROM THE NOSE, ATTEMPTED TO ADJUST NGT AND RETURN TO THE RIGHT POSITION, PT UNCOOPERATIVE, WITH DIFFICULTY IN CONFIRMING PLACEMENT VIA STETHOSCOPE. MEDICATED PT WITH DILAUDID 0.5 MG FOR COMFORT. WILL REINSERT NGT WHEN MED TAKES EFFECT.
--- NOTE | 2020-09-08 15:25 | NUR ---
ANXIETY. ATTEMPTED TO REINSERT NGT, PT UNWILLING, SHAKING HIS HEAD, GRABBING NURSE'S ARM, RESTRAINTS THOUGH IN PLACE. PAGED DR CHOUDHARY FOR NEW MED ORDERS.
[2020-09-08] MEDS ORDERED: LORazepam 2 MG/ML VIAL IVP ONE (15:30)
--- NOTE | 2020-09-08 15:34 | NUR ---
MEDS. DR CHOUDHARY INFORMED THAT PT'S NGT CAME OUT, PT UNCOOPERATIVE, NEW MEDS ORDERED. ATIVAN 2 MG IVP SLOWLY GIVEN. TURNED PT TO SIDE, ELEVATED HIS HEAD, PT CALM FOR ABOUT 10 MINUTES, ATTEMPTED TO REINSERT NGT, [place] SUMP 16 FR, STILL WITH DIFFICULTY, CHARGE NURSE HELPED OUT, PT FIGHTING DURING CARE. NEW NGT INTO RIGHT NARIS INSERTED. WILL HAVE CHEST XRAY FOR CONFIRMATION OF NGT IN THE STOMACH.
--- NOTE | 2020-09-08 16:45 | NUR ---
XRAY. CHEST XRAY DONE AT BEDSIDE.
[2020-09-08] MEDS: GENTAMICIN 100 MG/ ISO-OSM 50 ML PREMIX IV SCH (17:19)
--- NOTE | 2020-09-08 19:00 | NUR ---
REPORT. GIVEN TO VEGETABLE TESTER NURSE.
--- NOTE | 2020-09-08 19:30 | NUR ---
Opening note: Report received from day RN. Assuming care now.
--- NOTE | 2020-09-08 20:15 | NUR ---
Dr Mccartneyium here to sign medical necessity consent for colonoscopy and biopsy tomorrow.
[2020-09-08] MEDS: TAMSULOSIN HCL 0.4 MG CAP NG SCH (21:57)
--- NOTE | 2020-09-08 22:00 | NUR ---
Dr Fernandez here to assess patient. No new orders.
[2020-09-08] MEDS: ENOXAPARIN SODIUM 30 MG/0.3 ML SYRINGE SUBCUT SCH (22:03)
[2020-09-09] VITALS (32 sets, daily range): BP systolic 102–166
[2020-09-09] MEDS: metroNIDAZOLE 500 mg/NS 100 ML IV SCH ×3 (05:10→20:57)
--- NOTE | 2020-09-09 07:25 | NUR ---
Opening Note Received report from endorsing RN. Pt intubated on ventilator, asleep, responsive to tactile stimuli, sometimes follows commands. Pt in no signs of pain or acute distress. Per report, pt is scheduled to have colonoscopy today with Dr. Doll, consent signed for medical necessity with Dr. Gonzalez. Noted generalized and pitting edema on BUE and BLE. Coude catheter present, draining urine to gravity. Addendum: 09/09/20 at 1113 by Lorri Pina RN Tube feeding off for procedure today. Bilateral wrist restraints in place for safety, no skin breakdown noted, pulses present bilaterally.
[2020-09-09] MEDS: ISOSORBIDE DINITRATE 10 MG TABLET (ISORDIL) NG SCH ×3 (09:00→20:55)
[2020-09-09] MEDS: PANTOPRAZOLE SODIUM 40 MG/VIAL (PROTONIX) IVP SCH ×2 (09:35→20:55)
[2020-09-09] MEDS: FUROSEMIDE 20 MG/2 ML VIAL IVP SCH (09:36)
[2020-09-09] MEDS: DORZOLAMIDE 2% OPHTHALMIC SOLN 5ML OP SCH ×3 (09:37→20:57)
[2020-09-09] MEDS: D5/0.45 NS 1,000 ML IV SCH (09:38)
--- NOTE | 2020-09-09 11:06 | NUR ---
[facility] CALLED PAGED ANDREY SKINNER AT [phone] SPOKE WITH KESHIA.
--- NOTE | 2020-09-09 14:00 | NUR ---
Updates Colonoscopy cancelled by Dr. Doll, states he will plan to do total collectomy and ileostomy. Resumed tube feeding for pt and administered once daily meds via NGT.
[2020-09-09] MEDS: MULTIVITAMINS TAB 1 TABLET NG SCH (14:18)
[2020-09-09] MEDS: ASPIRIN 81 MG TAB.CHEW NG SCH (14:18)
[2020-09-09] MEDS: FIDAXOMICIN 200 MG TABLET NG SCH ×2 (14:20→20:55)
[2020-09-09] MEDS: FINASTERIDE 5 MG TABLET (PROSCAR) NG SCH (14:20)
--- NOTE | 2020-09-09 15:00 | NUR ---
Dr. Doll rounding. States he will do total collectomy and ileostomy on Tuesday 09/11. Dr. Doll states he will talk to Dr. Fernandez regarding trach and PEG.
--- NOTE | 2020-09-09 15:54 | NUR ---
Nutrition F/U RD reviewed pt's current EMR record including diet hx, MD notes, RN notes, pertinent labs/meds/procedures, care trends, and care activity Admitting Diagnosis: Septic shock, ARF Medical History Comment: PMH: HTN, DM, BPH, mild dementia, DJD per physician notes Pt also found w/ severe sepsis w/ shock, acute respiratory failure, dehydration, C[place], moderate malnutrition, anemia per physician notes 08/28/2020 notes: Dementia w/ Alzheimer's type, Metabolic encephalopathy SARS-CoV-2 (PCR) Negative 08/23 SARS-CoV-2 (Rapid) Negative 08/23 Subjective Information: Pt remains in ICU on isolation protocol, and RD visit deferred d/t lack of PPE. Surgeon (Dr. Doll) was in nursing station during RD rounds. He reported that pt will be scheduled for total colectomy and ileostomy and possible trach/PEG placement 09/11. TF had been off earlier today d/t possible colonoscopy, however, per RN, colonoscopy was cancelled d/t miscommunication w/ bowel prep. RN stated she was resume TF. She also reported that pt had been tolerating TF without residuals, however, pt continues w/ ongoing diarrhea. RN confirmed use of Banatrol prebiotic fibers to aid in bulking stool. Pt is C. diff+. Current Diet Order/Nutrition Support: Glucerna 1.2 at 60 ml/hr (goal rate), Banatrol TID, Free Water Flush: 100 CC Q8H via NGT x10 days Pertinent Medications: MVI, lovenox, SSI, protonix, IV D5/1/2 NS at 50 ml/hr (204 kcal), SSI, lasix Pertinent Labs: BUN 22 H, BG 175 H (improved), POC BG 124 H Mu scale: 12; RD reviewed Computer Terminal Operator note 09/05; no PIs noted Current % PO N/A, on EN NEW Estimated Energy Expenditure (kcals/day) 1595 kcal/day (REE using PSU 2002b d/t critical illness on vent support) -- minute volume: 7.5/temperature: 36.9 degrees C Estimated Protein Required (g/day) 67-101 gm/day (0.8-1.2 gm/kg CBW for ARF, geriatric status, sepsis) Estimated Fluid Required (l/day) Per physician d/t ARF Problem/Etiology/Signs/Symptoms Increased nutritional needs related to metabolic demands as evidenced by estimated nutritional requirements for sepsis. *met w/ current EN support Altered nutrition-related labs related to endocrine dysfunction as evidenced by elevated BG and POC BG labs. *ongoing Altered GI function r/t medication interaction AEB diarrhea on antibiotics. *ongoing Expected Outcomes/Goals - Monitor tolerance to EN support w/ goal of pt meeting over 80% of estimated nutritional requirements, labs trending WNL, normal GI function, and skin integrity/wt maintenance Dietitian Recommendations * Recommend continuing Glucerna 1.2 at 60 ml/hr (goal rate), Banatrol TID, Free Water Flush: 100 CC Q8H via NGT Provides: 1728 kcal/day, 86 gm protein/day, and 1159 ml free water/day Meets: 108% of estimated caloric needs and 85% of upper end of estimated protein needs Follow Up High Risk: F/U in 2-3 days
--- NOTE | 2020-09-09 15:59 | NUR ---
Dietitian Recommendations * Recommend continuing Glucerna 1.2 at 60 ml/hr (goal rate), Banatrol TID, Free Water Flush: 100 CC Q8H via NGT Provides: 1728 kcal/day, 86 gm protein/day, and 1159 ml free water/day Meets: 108% of estimated caloric needs and 85% of upper end of estimated protein needs LP, RD Please refer to Nutrition F/U for details.
[2020-09-09] MEDS: GENTAMICIN 100 MG/ ISO-OSM 50 ML PREMIX IV SCH (17:51)
[2020-09-09] MEDS: INSULIN REGULAR, HUMAN 100 UNITS/ML, 10 ML VIAL (humuLIN R) SUBCUT PRN ×2 (18:06→23:34)
--- NOTE | 2020-09-09 19:15 | NUR ---
Endorsed plan of care to RN
--- NOTE | 2020-09-09 19:16 | NUR ---
Opening Note Received report from AM nurse using SBAR approach.
[2020-09-09] MEDS: TAMSULOSIN HCL 0.4 MG CAP NG SCH (20:55)
[2020-09-09] MEDS: ENOXAPARIN SODIUM 30 MG/0.3 ML SYRINGE SUBCUT SCH (20:57)
--- NOTE | 2020-09-09 23:15 | NUR ---
MD Dr. Fernandez in to see patient. No new orders received.
[2020-09-10] VITALS (31 sets, daily range): BP systolic 117–166
[2020-09-10] MEDS: metroNIDAZOLE 500 mg/NS 100 ML IV SCH ×3 (06:27→21:33)
[2020-09-10] MEDS: D5/0.45 NS 1,000 ML IV SCH ×2 (06:27→23:44)
[2020-09-10] MEDS: INSULIN REGULAR, HUMAN 100 UNITS/ML, 10 ML VIAL (humuLIN R) SUBCUT PRN ×2 (06:37→12:59)
--- NOTE | 2020-09-10 07:25 | NUR ---
Received patient and endorsed report by NOC shift. Patient sleeping in bed with side rails x 3 up. Call light with in reach.
--- NOTE | 2020-09-10 08:27 | NUR ---
MD Roblero called, gave update per request via telephone.
[2020-09-10] MEDS: FUROSEMIDE 20 MG/2 ML VIAL IVP SCH (09:00)
[2020-09-10] MEDS: DORZOLAMIDE 2% OPHTHALMIC SOLN 5ML OP SCH ×3 (09:00→21:32)
[2020-09-10] MEDS: FIDAXOMICIN 200 MG TABLET NG SCH ×2 (09:00→21:47)
[2020-09-10] MEDS: PANTOPRAZOLE SODIUM 40 MG/VIAL (PROTONIX) IVP SCH ×2 (09:00→21:31)
[2020-09-10] MEDS: ASPIRIN 81 MG TAB.CHEW NG SCH (09:00)
[2020-09-10] MEDS: MULTIVITAMINS TAB 1 TABLET NG SCH (09:00)
[2020-09-10] MEDS: ISOSORBIDE DINITRATE 10 MG TABLET (ISORDIL) NG SCH ×3 (09:00→21:31)
[2020-09-10] MEDS: FINASTERIDE 5 MG TABLET (PROSCAR) NG SCH (09:00)
[2020-09-10] MEDS: NEOMYCIN SULFATE 500 MG TABLET PO SCH ×3 (11:45→21:30)
[2020-09-10] MEDS ORDERED: NEOMYCIN SULFATE 500 MG TABLET ONE (12:14)
--- NOTE | 2020-09-10 14:35 | NUR ---
Called Komal John listed in chart as person to notify home and work phone number to receive consent for total colostomy and ileostomy, left message to call facility back. When Jyoti John number listed in chart called, stated is a non-working number.
--- NOTE | 2020-09-10 17:30 | NUR ---
MD Gonzalez at bedside assessing patient.
[2020-09-10] MEDS: GENTAMICIN 100 MG/ ISO-OSM 50 ML PREMIX IV SCH (18:51)
--- NOTE | 2020-09-10 19:48 | NUR ---
Endorsed patient and gave report to NOC shift nurse. Patient in bed with side rails x 3 up. Call light with in reach.
--- NOTE | 2020-09-10 20:00 | NUR ---
Pt resting quietly, even and non-labored respirations, on vent with ETT size 7.5, secured to lip at 24 cm. Vent settings: SIMV, 14, 500, 5, 30% FiO2. Per previous shift, pt pulled out NGT therefore tube feedings of Glucerna 1.2 not infusing. PICC to RUE with dsg secure and intact with D5 1/2 NS at 50 mL/hr. F/C secure draining yellow urine. Flexiseal with 500 mL output to bag. VSS, NAD.
[2020-09-10] MEDS: ENOXAPARIN SODIUM 30 MG/0.3 ML SYRINGE SUBCUT SCH (21:00)
--- NOTE | 2020-09-10 21:30 | NUR ---
Contacted Dr. Doll regarding DVT prophylaxis. Instructed to hold Lovenox r/t sx in AM. Also informed Dr. Doll that previous shift was unable to contact pts friend/family member for surgical consent. Dr. Doll stated "He has given verbal consent before. That includes everything."
[2020-09-10] MEDS: TAMSULOSIN HCL 0.4 MG CAP NG SCH (21:31)
--- NOTE | 2020-09-10 22:00 | NUR ---
Unsuccessful NGT placement to Right nare.
[2020-09-11] VITALS (31 sets, daily range): BP systolic 104–143
--- NOTE | 2020-09-11 00:15 | NUR ---
NGT PLACEMENT NGT replaced after 1 attempt with 16ga tube. Placement checked be irrigating tube with air and auscultating placement.
--- NOTE | 2020-09-11 01:00 | NUR ---
Pt had Moderate soft Brown BM. Pt cleaned, new gown to pt and new linens to bed. Dsg to sacrum clean, dry, intact. Calamine cream applied to areas of redness to scrotum and inner folds of groin.
--- NOTE | 2020-09-11 01:30 | NUR ---
Pt report given to ARNALDO Schultz. Pt resting quietly, DAWSON CHERRY.
--- NOTE | 2020-09-11 01:30 | NUR ---
pt.re-assigned.i have assumed the care of the pt.for the remainder of the shift.fede has provided the pt's info/data. pt. presents isolation status:contact;mrsa;nares,c-diff+,esbl;blood.pt.presents ett/ng-tube;intact;ng-tube location:lt.nares. pt.is ordered ng-tube feed;glucerna:1.2 @60ml/hr.ng-tube feed has been on hold 2/t surgery in am;09/11/20 pr .as of midnight.pt.presents restraints wrist;bilateral in place;skin/circulation wnl.pt.presents stinson cath intact;patent urine content present.pt.presents rectal tube;intact;patent fecal matter present.ventilator present.i have reviewed the vent settings correspond to the md's recent orders.general status stable.respiratory status stable.call light/telephone w/in access of the pt.
--- NOTE | 2020-09-11 02:00 | NUR ---
pt.assessed.v/s assessed values w/in normal limits.pt.assessed for cleanliness.pt.repositioned.ett/ngt intact;i have attended to the oral care/suctioning. picc line intact;patent iv fluids infusing.stinson cath intact;patent urine content present.rectal tube intact;patent fecal matter present. pt.assessed for cleanliness.pt.repositioned.general status stable.respiratory status stable;unlabored.call light/telephone w/in reach of the pt.
--- NOTE | 2020-09-11 03:00 | NUR ---
pt.assessed.pt.assessed for cleanliness.pt.repositioned.general status stable.respiratory status stable.
--- NOTE | 2020-09-11 04:00 | NUR ---
pt.assessed.pt.assessed for cleanliness.pt.repositioned.ett/ngt intact;patent.i have attended to the oral care/suctioning.picc line intact;patent iv fluids infusing.stinson cath intact;patent urine content present.rectal tube intact;patent fecal matter present.general status stable.respiratory status stable;unlabored;02-sat%=100%.restraints assessed in place skin/circulation wnl.call light telephone placed w/in access of the pt.
--- NOTE | 2020-09-11 05:00 | NUR ---
pt.assessed.pt.assessed for cleanliness.pt.repositioned.general status stable.respiratory status stable.
[2020-09-11] MEDS: metroNIDAZOLE 500 mg/NS 100 ML IV SCH ×3 (05:05→21:50)
[2020-09-11 05:37] LABS: BILIRUBIN,URINE NEGATIVE (NEGATIVE); COLOR,URINE YELLOW (YELLOW); GLUCOSE,URINE NEGATIVE (NEGATIVE); KETONES,URINE NEGATIVE (NEGATIVE); LEUKOCYTE ESTERASE ,URINE 2+ (NEGATIVE); NITRITE, URINE POSITIVE (NEGATIVE); PH,URINE 6.5 (5.0-8.0); PROTEIN URINE TRACE (NEGATIVE); UROBILINOGEN,URINE 0.2 (0.2-1.0)
[2020-09-11 05:44] LABS: BLOOD, URINE TRACE (NEGATIVE)
[2020-09-11 05:45] LABS: BACTERIA,URINE MANY /HPF (None Seen); CLARITY/URINE HAZY (CLEAR); WBC,URINE 20-50 /HPF (0-3)
--- NOTE | 2020-09-11 06:00 | NUR ---
pt.assessed.ett/ngt intact.i have attended to the oral care/suctioning.picc line intact;patent iv fluids infusing.stinson cath intact;patent urine content present.rectal tube intact;patent fecal content present.pt.assessed for cleanliness.pt.repositioned. i have assessed the blood glucose;value;136mg/dl.pt.presents chf.i weighed the pt.pt.is to submit to surgery per . 09/11/20.surgery check-list/paper work printed.labs,cxr,pt/inr,blood:2-units,ua,covid19;rapid ordered collected.restraints wrist bilateral in place.skin/circulation wnl.call light/telephone placed w/in access of the pt.
[2020-09-11 06:07] LABS: BASOPHILS # (AUTO) 0.1 K/uL (0.0-0.2); BASOPHILS % (AUTO) 1.3 % (0.0-2.0); EOSINOPHILS % (AUTO) 0.4 % (0.0-4.0); HEMATOCRIT 29.9 % (36-54); HEMOGLOBIN 9.5 g/dL (14.0-18.0); LYMPHOCYTES # (AUTO) 1.1 K/uL (1.0-5.5); LYMPHOCYTES % (AUTO) 21.2 % (20.5-51.5); MEAN CORPUSCULAR HEMOGLOBIN 26 pg (27-31); MEAN CORPUSCULAR HGB CONC 32 % (32-36); MEAN CORPUSCULAR VOLUME 81 fL (79.0-98.0); MONOCYTES # (AUTO) 0.6 K/uL (0.0-1.0); MONOCYTES % (AUTO) 11.1 % (1.7-9.3); NEUTROPHILS # (AUTO) 3.3 K/uL (1.8-7.7); PLATELET COUNT (AUTO) 409 K/uL (130-430); RED BLOOD CELL COUNT(AUTO) 3.71 MIL/uL (4.2-6.2); RED CELL DISTRIBUTION WIDTH 18.7 % (9.0-15.0)
[2020-09-11 06:24] LABS: INR 1.2 (0.80-1.20); PROTHROMBIN TIME 12.4 SECS (9.5-12.5)
--- NOTE | 2020-09-11 06:30 | NUR ---
i have attended to the chg pre-op bath per surgery protocol.
[2020-09-11 06:42] LABS: ALANINE AMINOTRANSFERASE 14 U/L (12-78); ALBUMIN 1.6 g/dL (3.4-4.8); ANION GAP 6 (5-15); ASPARTATE AMINOTRANSFERASE 15 U/L (10-37); CALCIUM 7.3 mg/dL (8.4-11.0); CHLORIDE 106 mmol/L (98-107); CREATININE 1.39 mg/dL (0.55-1.30); GLUCOSE 155 mg/dL (70-99); POTASSIUM 3.8 mmol/L (3.5-5.1); SODIUM SERUM 139 mmol/L (136-145); TOTAL BILIRUBIN 0.2 mg/dL (0.0-1.0); UREA NITROGEN, BLOOD 16 mg/dL (8-21)
--- NOTE | 2020-09-11 07:30 | NUR ---
Opening Note Received bedside report from endorsing RN for continuation of care. Received patient intubated and resting in bed, no signs or symptoms of acute distress noted. Bed locked in lowest position, bed alarm on, and call light within reach. Fall and safety precautions in place.
--- NOTE | 2020-09-11 08:55 | NUR ---
Dr. Esparza at bedside examining patient. No new orders.
[2020-09-11] MEDS: FINASTERIDE 5 MG TABLET (PROSCAR) NG SCH (09:00)
[2020-09-11] MEDS: FIDAXOMICIN 200 MG TABLET NG SCH ×2 (09:00→20:47)
[2020-09-11] MEDS: MULTIVITAMINS TAB 1 TABLET NG SCH (09:00)
[2020-09-11] MEDS: ISOSORBIDE DINITRATE 10 MG TABLET (ISORDIL) NG SCH ×4 (09:00→20:47)
[2020-09-11] MEDS: ASPIRIN 81 MG TAB.CHEW NG SCH (09:00)
[2020-09-11] MEDS: PANTOPRAZOLE SODIUM 40 MG/VIAL (PROTONIX) IVP SCH ×2 (09:34→21:06)
[2020-09-11] MEDS: FUROSEMIDE 20 MG/2 ML VIAL IVP SCH (09:34)
[2020-09-11] MEDS: DORZOLAMIDE 2% OPHTHALMIC SOLN 5ML OP SCH ×3 (10:26→20:56)
--- NOTE | 2020-09-11 11:35 | NUR ---
Dr. Ley in to see patient. New orders received.
--- NOTE | 2020-09-11 12:30 | NUR ---
Patient to OR Patient to OR on continuous monitoring specialist via hospital bed using ACLS protocol. ACLS RN and RT present at all times. Endorsed bedside report to DATA WAREHOUSE ANALYST for continuation of care.
[2020-09-11] MEDS ORDERED: ROCURONIUM BROMIDE 10 MG/ML (ZEMURON) IV ONE (13:05)
[2020-09-11] MEDS ORDERED: NS IRRIG SOLN 1000 ML IR ONE (13:05)
[2020-09-11] MEDS ORDERED: LR 1,000 ML IV.SOLN IV ONE (13:05)
[2020-09-11] MEDS ORDERED: LIDOCAINE 1% 10 MG/ML, 20 ML MDV INJ ONE (13:05)
[2020-09-11] MEDS ORDERED: SEVOFLURANE 15 MIN GAS INH ONE (13:05)
--- NOTE | 2020-09-11 14:35 | NUR ---
Received pt back directly from OR to ICU bed 7 with anesthesiologist present. Pt responsive to stimulus by grimacing. SR on monitor rate 88. 02 sat97%. BP 124/60. Pt has a trach now and is on the vent with the same vent settings SIMV 14/PS 10/ 500/30%/P5 and no distress noted.
--- NOTE | 2020-09-11 14:40 | NUR ---
No active bleeding noted from trach or GT site. VSS. SR on monitor. HOB up. IVF infusing at 50 cc/hr.
--- NOTE | 2020-09-11 14:45 | NUR ---
No active bleeding from either surgical site. SR on monitor. VSS. HOB up. No resp distress on vent.
--- NOTE | 2020-09-11 14:50 | NUR ---
No active bleeding noted from either surgical site. SR on monitor. VSS. HOB up. No distress on current vent settings.
--- NOTE | 2020-09-11 14:55 | NUR ---
Report given to bedside RN to assume care of the pt. No distress or active bleeding noted. VSS. SR on monitor.
--- NOTE | 2020-09-11 15:00 | NUR ---
No active bleeding noted from trach or GT sites. No signs or symptoms of acute distress noted. Vital signs stable, will continue to monitor.
--- NOTE | 2020-09-11 15:05 | NUR ---
No active bleeding noted from trach or GT sites. No signs or symptoms of acute distress noted. Vital signs stable, will continue to monitor.
--- NOTE | 2020-09-11 15:20 | NUR ---
No active bleeding noted from either trach or GT surgical sites. No signs or symptoms of acute distress noted. Vital signs stable, will continue to monitor.
--- NOTE | 2020-09-11 15:30 | NUR ---
Dr. Gonzalez at bedside examining patient. Per Dr. Gonzalez, okay to resume tubefeeding and medications. New orders received.
--- NOTE | 2020-09-11 15:35 | NUR ---
No active bleeding noted from either trach or GT surgical sites. No signs or symptoms of acute distress noted. Vital signs stable, will continue to monitor.
--- NOTE | 2020-09-11 15:50 | NUR ---
No active bleeding noted from either trach or GT surgical sites. No signs or symptoms of acute distress noted. Vital signs stable, will continue to monitor.
--- NOTE | 2020-09-11 16:05 | NUR ---
No active bleeding noted from either trach or GT surgical sites. No signs or symptoms of acute distress noted. Vital signs stable, will continue to monitor.
[2020-09-11] MEDS: GENTAMICIN 100 MG/ ISO-OSM 50 ML PREMIX IV SCH (17:12)
[2020-09-11] MEDS ORDERED: NOREPINEPHRINE BITARTRATE 4 MG in NS 246 ML IV PRN (18:30)
[2020-09-11] MEDS ORDERED: ALBUMIN HUMAN 25% 100 ML IV PRN (18:30)
--- NOTE | 2020-09-11 18:36 | NUR ---
Spoke with Dr. Fernandez regarding patient's blood pressure. New orders received.
[2020-09-11] MEDS: ALBUMIN HUMAN 25% 100 ML IV SCH ×2 (18:51→22:30)
[2020-09-11] MEDS ORDERED: ALBUMIN HUMAN 25% 100 ML IV ONE (18:58)
--- NOTE | 2020-09-11 19:15 | NUR ---
Closing Note Endorsed bedside report to oncoming RN using SBAR approach for continuation of care.
--- NOTE | 2020-09-11 19:30 | NUR ---
RECEIVED REPORT PATIENT IS SP TRACHEOSTOMY AND PEG INSERTION TODAY,PATIENT IS AWAKE EYES ARE OPEN RESPOSE WITH PAIN STIMULI AND APPEARING TO RESISST CARE WHEN BLOOD IS BEING DRAWNED.PATIENT WITH SOFT WRIST RESTRAINT HE IS TRYING TO PULL HIS PEG IN PLACE..TRACEOSTOMY TUBE IS PORTEX #8 HAS MINIMAL SEROUSANGUINOUS DRAINAGE.PEG TUBE W/ DRESSING DRY.PATIENT HAS PICC LINE IN PLACE ON RIGHT UPPER ARM HAS IV INFUSING WITH D0.45NS AT 50CC/HR.PATIENT WITH ZARATE CATH IN PLACE URINE OUTPUT IS DOMINGO COLORED.PATIENT HAS BEEN TOLERATING HIS FEEDING WITH GLUCERNA1.2 AT 60CC/HR.
[2020-09-11 20:03] LABS: BASOPHILS % (AUTO) 0.4 % (0.0-2.0); EOSINOPHILS % (AUTO) 0.3 % (0.0-4.0); HEMATOCRIT 31.7 % (36-54); LYMPHOCYTES # (AUTO) 1.1 K/uL (1.0-5.5); LYMPHOCYTES % (AUTO) 14.2 % (20.5-51.5); MEAN CORPUSCULAR HEMOGLOBIN 26 pg (27-31); MEAN CORPUSCULAR HGB CONC 32 % (32-36); MEAN CORPUSCULAR VOLUME 81 fL (79.0-98.0); MONOCYTES # (AUTO) 0.9 K/uL (0.0-1.0); MONOCYTES % (AUTO) 11.9 % (1.7-9.3); NEUTROPHILS # (AUTO) 5.7 K/uL (1.8-7.7); NEUTROPHILS % (AUTO) 73.2 % (40.0-70.0); PLATELET COUNT (AUTO) 425 K/uL (130-430); RED BLOOD CELL COUNT(AUTO) 3.89 MIL/uL (4.2-6.2); RED CELL DISTRIBUTION WIDTH 18.9 % (9.0-15.0); WHITE BLOOD COUNT (AUTO) 7.8 K/uL (4.8-10.8)
[2020-09-11] MEDS: TAMSULOSIN HCL 0.4 MG CAP NG SCH (20:46)
[2020-09-11] MEDS: ENOXAPARIN SODIUM 30 MG/0.3 ML SYRINGE SUBCUT SCH (21:03)
[2020-09-11] MEDS: D5/0.45 NS 1,000 ML IV SCH (21:52)
--- NOTE | 2020-09-11 22:00 | NUR ---
DR BUTTS HERE TO SEE PATIENT.ORDERS NOTED HE CHANGED VENT SETTING TO AC MODE.DR BUTTS INDICATED THAT PATIENT DOES NOT NEED THE ALBUMIN 25% AT THIS TIME HIS BLOOD PRESSURE IS ALREADY STABLE.
--- NOTE | 2020-09-11 22:35 | NUR ---
RT NOTES 2234 DR BUTTS CAME IN, ORDERED PT TO BE BACK ON AC MODE. (AC 14, 500VT, PEEP 5,30% FIO2). DUE TO INCREASED RR. EXECUTED ORDER. PT SATURATION 100%. WILL CONTINUE TO MONITOR PT. CRM FUNCTIONAL ANALYST AWARE.
[2020-09-12] VITALS (30 sets, daily range): BP systolic 98–150
[2020-09-12] MEDS: INSULIN REGULAR, HUMAN 100 UNITS/ML, 10 ML VIAL (humuLIN R) SUBCUT PRN ×4 (00:24→17:55)
[2020-09-12] MEDS: ALBUMIN HUMAN 25% 100 ML IV SCH (03:18)
[2020-09-12] MEDS: metroNIDAZOLE 500 mg/NS 100 ML IV SCH ×3 (05:53→22:21)
[2020-09-12 06:27] LABS: BASOPHILS % (AUTO) 0.6 % (0.0-2.0); EOSINOPHILS % (AUTO) 0.6 % (0.0-4.0); HEMATOCRIT 30.1 % (36-54); HEMOGLOBIN 9.5 g/dL (14.0-18.0); LYMPHOCYTES # (AUTO) 1.1 K/uL (1.0-5.5); LYMPHOCYTES % (AUTO) 14.8 % (20.5-51.5); MEAN CORPUSCULAR HEMOGLOBIN 26 pg (27-31); MEAN CORPUSCULAR HGB CONC 32 % (32-36); MEAN CORPUSCULAR VOLUME 82 fL (79.0-98.0); MONOCYTES # (AUTO) 0.8 K/uL (0.0-1.0); MONOCYTES % (AUTO) 10.5 % (1.7-9.3); NEUTROPHILS # (AUTO) 5.4 K/uL (1.8-7.7); NEUTROPHILS % (AUTO) 73.5 % (40.0-70.0); PLATELET COUNT (AUTO) 446 K/uL (130-430); RED BLOOD CELL COUNT(AUTO) 3.69 MIL/uL (4.2-6.2); RED CELL DISTRIBUTION WIDTH 19.1 % (9.0-15.0); WHITE BLOOD COUNT (AUTO) 7.3 K/uL (4.8-10.8)
[2020-09-12 07:07] LABS: ANION GAP 9 (5-15); CALCIUM 7.3 mg/dL (8.4-11.0); CHLORIDE 107 mmol/L (98-107); CREATININE 1.47 mg/dL (0.55-1.30); GLUCOSE 189 mg/dL (70-99); PHOSPHORUS 2.8 mg/dL (2.7-4.5); POTASSIUM 4.4 mmol/L (3.5-5.1); SODIUM SERUM 139 mmol/L (136-145); UREA NITROGEN, BLOOD 16 mg/dL (8-21)
--- NOTE | 2020-09-12 07:15 | NUR ---
Opening note Received report from JOSÉ MCINTOSH. Addendum: 09/12/20 at 1018 by Naveen Hickman RN Opening Note Received report from JOSÉ MCINTOSH.
[2020-09-12] MEDS: MULTIVITAMINS TAB 1 TABLET NG SCH (08:31)
[2020-09-12] MEDS: ASPIRIN 81 MG TAB.CHEW NG SCH (08:31)
[2020-09-12] MEDS: FIDAXOMICIN 200 MG TABLET NG SCH ×2 (08:31→20:18)
[2020-09-12] MEDS: FINASTERIDE 5 MG TABLET (PROSCAR) NG SCH (08:31)
[2020-09-12] MEDS: ISOSORBIDE DINITRATE 10 MG TABLET (ISORDIL) NG SCH ×3 (08:32→20:18)
[2020-09-12] MEDS: PANTOPRAZOLE SODIUM 40 MG/VIAL (PROTONIX) IVP SCH ×2 (08:32→20:17)
[2020-09-12] MEDS: FUROSEMIDE 20 MG/2 ML VIAL IVP SCH (08:34)
[2020-09-12] MEDS: DORZOLAMIDE 2% OPHTHALMIC SOLN 5ML OP SCH ×3 (09:00→20:20)
--- NOTE | 2020-09-12 09:45 | NUR ---
RN Rounds Pt resting in bed, NAD. Linens/gown changed, festus/stinson care done. New flexiseal applied. Pt refused oral care.
--- NOTE | 2020-09-12 10:45 | NUR ---
MD Rounds Dr. Doll at bedside.
--- NOTE | 2020-09-12 11:59 | NUR ---
Nutrition F/U RD reviewed pt's current EMR record including diet hx, MD notes, RN notes, pertinent labs/meds/procedures, care trends, and care activity Admitting Diagnosis: Septic shock, ARF Medical History Comment: PMH: HTN, DM, BPH, mild dementia, DJD per physician notes Pt also found w/ severe sepsis w/ shock, acute respiratory failure, dehydration, C[place], moderate malnutrition, anemia per physician notes 08/28/2020 MD notes: Dementia w/ Alzheimer's type, Metabolic encephalopathy SARS-CoV-2 (PCR) Negative 08/23 SARS-CoV-2 (Rapid) Negative 08/23 Subjective Information: Pt remains in ICU on isolation protocol, and RD visit deferred d/t lack of PPE. Pt s/p trach and PEG placement and GTF started yesterday per MD note. MD note reported pt originally scheduled for total colectomy, however, MD is still a/w for family consent for surgery, so total colectomy has not been done yet. Per RN note, pt tolerating TF Glucerna 1.2 via GT at 60 ml/hr (goal rate) and w/ minimal residuals per EMR. Continues to have diarrhea per MD note. +rectal tube w/ 350 ml output (09/12-09/13) per EMR. Current TF regimen remains adequate and appropriate to meet pt's needs. Current Diet Order/Nutrition Support: Glucerna 1.2 at 60 ml/hr (goal rate), Banatrol TID, Free Water Flush: 100 CC Q8H via GT x1 day Pertinent Medications: MVI, lovenox, SSI, protonix, SSI, lasix, glucagon, gentamicin Pertinent Labs: BUN 16 WNL (improved), BG 189 H, POC BG 176 H Mu scale: 11; RD reviewed Traffic Representative note 09/05; no PIs noted Current % PO N/A, on EN Estimated Energy Expenditure (kcals/day) 1595 kcal/day (REE using PSU 2003b d/t critical illness on vent support) -- minute volume: 7.5/temperature: 36.9 degrees C Estimated Protein Required (g/day) 67-101 gm/day (0.8-1.2 gm/kg CBW for ARF, geriatric status, sepsis) Estimated Fluid Required (l/day) Per physician d/t ARF Problem/Etiology/Signs/Symptoms Increased nutritional needs related to metabolic demands as evidenced by estimated nutritional requirements for sepsis. *met w/ current EN support Altered nutrition-related labs related to endocrine dysfunction as evidenced by elevated BG and POC BG labs. *ongoing Altered GI function r/t medication interaction AEB diarrhea on antibiotics. *ongoing Expected Outcomes/Goals - Monitor tolerance to EN support w/ goal of pt meeting over 80% of estimated nutritional requirements, labs trending WNL, normal GI function, and skin integrity/wt maintenance Dietitian Recommendations * Recommend continuing Glucerna 1.2 at 60 ml/hr (goal rate), Banatrol TID, Free Water Flush: 100 CC Q8H via GT Provides: 1728 kcal/day, 86 gm protein/day, and 1159 ml free water/day Meets: 108% of estimated caloric needs and 85% of upper end of estimated protein needs Follow Up High Risk: F/U in 2-3 days
--- NOTE | 2020-09-12 12:08 | NUR ---
Dietitian Recommendations * Recommend continuing Glucerna 1.2 at 60 ml/hr (goal rate), Banatrol TID, Free Water Flush: 100 CC Q8H via GT Provides: 1728 kcal/day, 86 gm protein/day, and 1159 ml free water/day Meets: 108% of estimated caloric needs and 85% of upper end of estimated protein needs Please see Nutrition F/U for details. EP,RD
--- NOTE | 2020-09-12 12:15 | NUR ---
RN Rounds Pt resting in bed, NAD. PICC dressing changed.
--- NOTE | 2020-09-12 16:00 | NUR ---
RN Rounds Pt seen resting in bed. Suctioned patient, Pt refused oral care.
[2020-09-12] MEDS: D5/0.45 NS 1,000 ML IV SCH (16:58)
[2020-09-12] MEDS: GENTAMICIN 100 MG/ ISO-OSM 50 ML PREMIX IV SCH (17:40)
--- NOTE | 2020-09-12 18:01 | NUR ---
RN Rounds pt resting in bed. Pt complaining of 7/[address] Gonzalez.
[2020-09-12] MEDS ORDERED: NALOXONE HCL 0.4 MG/ML AMP (NARCAN) IVP PRN (18:30)
--- NOTE | 2020-09-12 18:30 | NUR ---
HIGH ALERT NOTE: Called Dr. Gonzalez back at 1830 identified within the medical roster to verify physician authenticity.
[2020-09-12] MEDS: MORPHINE 2 MG/ML INJ. SYRINGE IVP PRN (18:43)
--- NOTE | 2020-09-12 19:16 | NUR ---
Closing Note Report given to oncoming RN.
--- NOTE | 2020-09-12 19:17 | NUR ---
Opening Note Received report from AM nurse using SBAR approach.
--- NOTE | 2020-09-12 19:45 | NUR ---
MD Rounds Dr. Fernandez in to see patient. No new orders received.
[2020-09-12] MEDS: TAMSULOSIN HCL 0.4 MG CAP NG SCH (20:18)
[2020-09-12] MEDS: ENOXAPARIN SODIUM 30 MG/0.3 ML SYRINGE SUBCUT SCH (20:20)
--- NOTE | 2020-09-12 20:20 | NUR ---
PM rounds Patient is awake in bed. Tracheal suction provided, patient has thick secretions. Patient refused oral care. Turned patient and placed pillows on the left side. Patient tolerated well.
--- NOTE | 2020-09-12 22:30 | NUR ---
PM rounds Patient resting in bed. Tracheal suction provided. Repositioned patient and placed pillows on the right side. patient tolerated well.
[2020-09-13] VITALS (30 sets, daily range): BP systolic 96–148
--- NOTE | 2020-09-13 01:00 | NUR ---
PM Rounds Patient is awake in bed. Tracheal suction provided. Patient has large secretions. RT changed out the dressing and cleaned the trache site. Patient tolerated well. Patient still continues to refuse oral care. Repositioned patient and turned him. Placed pillows on the left side.
--- NOTE | 2020-09-13 04:15 | NUR ---
Pm Rounds Patient is resting in bed. Tracheal suction provided. Patient has moderate amount of secretions. Patient refused oral care. Turned patient and placed pillows on the right side. Patient tolerated well.
[2020-09-13] MEDS: metroNIDAZOLE 500 mg/NS 100 ML IV SCH ×3 (05:30→21:22)
[2020-09-13 05:56] LABS: BASOPHILS % (AUTO) 0.5 % (0.0-2.0); EOSINOPHILS % (AUTO) 0.1 % (0.0-4.0); HEMATOCRIT 29.4 % (36-54); HEMOGLOBIN 9.4 g/dL (14.0-18.0); LYMPHOCYTES # (AUTO) 1.2 K/uL (1.0-5.5); LYMPHOCYTES % (AUTO) 14.4 % (20.5-51.5); MEAN CORPUSCULAR HEMOGLOBIN 26 pg (27-31); MEAN CORPUSCULAR HGB CONC 32 % (32-36); MEAN CORPUSCULAR VOLUME 80 fL (79.0-98.0); MONOCYTES # (AUTO) 0.8 K/uL (0.0-1.0); MONOCYTES % (AUTO) 9.6 % (1.7-9.3); NEUTROPHILS # (AUTO) 6.2 K/uL (1.8-7.7); NEUTROPHILS % (AUTO) 75.4 % (40.0-70.0); PLATELET COUNT (AUTO) 357 K/uL (130-430); RED BLOOD CELL COUNT(AUTO) 3.66 MIL/uL (4.2-6.2); RED CELL DISTRIBUTION WIDTH 18.8 % (9.0-15.0); WHITE BLOOD COUNT (AUTO) 8.2 K/uL (4.8-10.8)
--- NOTE | 2020-09-13 06:00 | NUR ---
PM Rounds Tracheal suction provided. Patient refused oral care. Patient tolerated well.
[2020-09-13 07:13] LABS: ANION GAP 5 (5-15); CHLORIDE 105 mmol/L (98-107); CREATININE 1.51 mg/dL (0.55-1.30); GLUCOSE 155 mg/dL (70-99); PHOSPHORUS 2.9 mg/dL (2.7-4.5); POTASSIUM 3.5 mmol/L (3.5-5.1); SODIUM SERUM 137 mmol/L (136-145); UREA NITROGEN, BLOOD 15 mg/dL (8-21)
--- NOTE | 2020-09-13 07:29 | NUR ---
Closing Note Endorsed report to AM nurse using SBAR approach.
--- NOTE | 2020-09-13 07:30 | NUR ---
Opening Notes Pt received from night RN using SBAR.
[2020-09-13] MEDS ORDERED: COMMUNICATION ORDER XX ONE (08:00)
--- NOTE | 2020-09-13 08:15 | NUR ---
Oral Care Pt allowed for oral care to be provided.
--- NOTE | 2020-09-13 08:45 | NUR ---
Family Spoke to pt's son Juvenal Robledo jr. his contact phone number is [phone] which is a cellular number that can be reached at anytime.
[2020-09-13] MEDS: MORPHINE 2 MG/ML INJ. SYRINGE IVP PRN ×3 (09:30→23:42)
[2020-09-13] MEDS: METOPROLOL TARTRATE 50 MG TABLET GT SCH ×2 (09:31→20:04)
[2020-09-13] MEDS: PANTOPRAZOLE SODIUM 40 MG/VIAL (PROTONIX) IVP SCH ×2 (09:31→20:04)
[2020-09-13] MEDS: ASPIRIN 81 MG TAB.CHEW GT SCH (09:32)
[2020-09-13] MEDS: MULTIVITAMINS TAB 1 TABLET GT SCH (09:32)
[2020-09-13] MEDS: FUROSEMIDE 20 MG/2 ML VIAL IVP SCH (09:32)
[2020-09-13] MEDS: FINASTERIDE 5 MG TABLET (PROSCAR) GT SCH (09:32)
[2020-09-13] MEDS: FIDAXOMICIN 200 MG TABLET GT SCH ×2 (09:33→20:02)
[2020-09-13] MEDS: DORZOLAMIDE 2% OPHTHALMIC SOLN 5ML OP SCH ×3 (09:34→20:04)
--- NOTE | 2020-09-13 12:02 | NUR ---
Oral Care Pt refused oral care, provided tracheal suction.
[2020-09-13] MEDS: VANCOMYCIN HCL ORAL SOLUTION 250 MG/5 ML, 80 ML PO SCH ×3 (12:25→20:05)
[2020-09-13] MEDS: INSULIN REGULAR, HUMAN 100 UNITS/ML, 10 ML VIAL (humuLIN R) SUBCUT PRN ×3 (12:33→23:53)
[2020-09-13] MEDS: D5/0.45 NS 1,000 ML IV SCH (12:35)
--- NOTE | 2020-09-13 16:00 | NUR ---
Oral Care Pt refused oral care, was able to briefly suction mouth.
--- NOTE | 2020-09-13 16:45 | NUR ---
CHG Pt provided CHG, partial linen change. Pt tolerated well and was able to assist with turns side to side.
[2020-09-13] MEDS: GENTAMICIN 100 MG/ ISO-OSM 50 ML PREMIX IV SCH (17:48)
--- NOTE | 2020-09-13 19:24 | NUR ---
Closing Notes Pt endorsed to night RN using SBAR.
[2020-09-13] MEDS: MENTHOL/ZINC OXIDE 113 GM OINT. TP PRN (19:25)
--- NOTE | 2020-09-13 19:25 | NUR ---
Opening Note Received report from AM nurse using SBAR approach.
[2020-09-13] MEDS: TAMSULOSIN HCL 0.4 MG CAP GT SCH (20:03)
[2020-09-13] MEDS: ENOXAPARIN SODIUM 30 MG/0.3 ML SYRINGE SUBCUT SCH (20:05)
--- NOTE | 2020-09-13 20:20 | NUR ---
Pm Rounds Patient is resting in bed. Performed tracheal suction on patient and he has thick secretions. Repositioned patient and put pillows on the opposite side. Patient tolerated well.
--- NOTE | 2020-09-13 20:45 | NUR ---
rounds Dr. Gonzalez at bedside. No new orders received.
[2020-09-14] VITALS (30 sets, daily range): BP systolic 91–133
--- NOTE | 2020-09-14 02:00 | NUR ---
Patient soiled his chucks. Cleaned patient with voss wipes and changed all linens. Patient tolerated well.
[2020-09-14] MEDS: metroNIDAZOLE 500 mg/NS 100 ML IV SCH ×3 (05:15→21:19)
[2020-09-14] MEDS: INSULIN REGULAR, HUMAN 100 UNITS/ML, 10 ML VIAL (humuLIN R) SUBCUT PRN ×2 (05:31→17:27)
--- NOTE | 2020-09-14 07:16 | NUR ---
Closing Note Endorsed report to AM nurse using SBAR approach.
--- NOTE | 2020-09-14 07:25 | NUR ---
Opening Note Received bedside report from endorsing RN for continuation of care. Received patient trach to vent and resting in bed, no signs or symptoms of acute distress noted. Bed locked in lowest position, bed alarm on, and call light within reach. Fall and safety precautions in place.
[2020-09-14 07:57] LABS: ALANINE AMINOTRANSFERASE 11 U/L (12-78); ALBUMIN 1.7 g/dL (3.4-4.8); ANION GAP 7 (5-15); ASPARTATE AMINOTRANSFERASE 5 U/L (10-37); CALCIUM 7.1 mg/dL (8.4-11.0); CHLORIDE 105 mmol/L (98-107); CREATININE 1.38 mg/dL (0.55-1.30); GLUCOSE 141 mg/dL (70-99); POTASSIUM 3.6 mmol/L (3.5-5.1); SODIUM SERUM 136 mmol/L (136-145); TOTAL BILIRUBIN 0.2 mg/dL (0.0-1.0); UREA NITROGEN, BLOOD 17 mg/dL (8-21)
[2020-09-14 07:58] LABS: BASOPHILS % (AUTO) 0.6 % (0.0-2.0); EOSINOPHILS % (AUTO) 0.7 % (0.0-4.0); HEMATOCRIT 30.3 % (36-54); HEMOGLOBIN 9.7 g/dL (14.0-18.0); LYMPHOCYTES # (AUTO) 1.2 K/uL (1.0-5.5); LYMPHOCYTES % (AUTO) 17.5 % (20.5-51.5); MEAN CORPUSCULAR HEMOGLOBIN 26 pg (27-31); MEAN CORPUSCULAR HGB CONC 32 % (32-36); MEAN CORPUSCULAR VOLUME 80 fL (79.0-98.0); MONOCYTES # (AUTO) 0.6 K/uL (0.0-1.0); NEUTROPHILS % (AUTO) 72.2 % (40.0-70.0); PLATELET COUNT (AUTO) 353 K/uL (130-430); RED BLOOD CELL COUNT(AUTO) 3.77 MIL/uL (4.2-6.2); RED CELL DISTRIBUTION WIDTH 19.4 % (9.0-15.0)
--- NOTE | 2020-09-14 08:25 | NUR ---
Dr. Esparza at bedside examining patient. No new orders.
[2020-09-14] MEDS: ASPIRIN 81 MG TAB.CHEW GT SCH (08:27)
[2020-09-14] MEDS: FINASTERIDE 5 MG TABLET (PROSCAR) GT SCH (08:27)
[2020-09-14] MEDS: PANTOPRAZOLE SODIUM 40 MG/VIAL (PROTONIX) IVP SCH ×2 (08:27→21:18)
[2020-09-14] MEDS: FUROSEMIDE 20 MG/2 ML VIAL IVP SCH (08:28)
[2020-09-14] MEDS: DORZOLAMIDE 2% OPHTHALMIC SOLN 5ML OP SCH ×3 (08:29→21:18)
[2020-09-14] MEDS: VANCOMYCIN HCL ORAL SOLUTION 250 MG/5 ML, 80 ML PO SCH ×4 (08:29→21:15)
[2020-09-14] MEDS: METOPROLOL TARTRATE 50 MG TABLET GT SCH ×2 (08:29→21:17)
[2020-09-14] MEDS: MULTIVITAMINS TAB 1 TABLET GT SCH (08:29)
[2020-09-14] MEDS: FIDAXOMICIN 200 MG TABLET GT SCH ×2 (08:29→21:16)
[2020-09-14] MEDS: D5/0.45 NS 1,000 ML IV SCH (08:31)
--- NOTE | 2020-09-14 10:40 | NUR ---
Dr. Doll in to see patient. No new orders and surgery will not be done at this time. Unable to obtain consent at this time.
[2020-09-14] MEDS: MORPHINE 2 MG/ML INJ. SYRINGE IVP PRN ×2 (11:14→15:17)
--- NOTE | 2020-09-14 14:52 | NUR ---
Dr. Gonzalez at bedside examining patient. No new orders.
--- NOTE | 2020-09-14 15:49 | NUR ---
Wound Care/CHG Wound care done per wound care guidelines and CHG bath given. Patient had small loose BM. Pericare done and bed linens changed.
[2020-09-14] MEDS: GENTAMICIN 100 MG/ ISO-OSM 50 ML PREMIX IV SCH (17:17)
--- NOTE | 2020-09-14 17:58 | NUR ---
Family friend Marcelo John [phone], pts friend to call pts Son, Juvenal in [facility] regarding colectomy and ileostomy. Pts friend expressed concerns at having a big surgery and if he was making the decision he would say no. But he will call the pts son later sofie and talk to him about the surgery and either the son or Mr. John will call us back tomorrow.
--- NOTE | 2020-09-14 19:09 | NUR ---
Closing Note Endorsed bedside report to oncoming RN using SBAR approach for continuation of care.
--- NOTE | 2020-09-14 19:10 | NUR ---
OPENING NOTE SBAR REPORT RECEIVED FROM DENISE MCINTOSH. CARE ASSUMED. PT LAYING IN BED. PT ANO X2. PT TRACH TO VENT. TRACH PORTEX 7.0 VENT SETTINGS SIMV 16, FIO2 30, TV 500, PEEP 5, PS 10. TOLERATING VENT SETTINGS WELL. PT SINUS RHYTHM ON MONITOR. PT HAS RIGHT UPPER EXTREMITY PICC LINE RUNNING D5 1/2 NS @ 50 ML/HR. PT HAS 2+ EDEMA TO BILATERAL UPPER AND LOWER EXTREMITIES. ABDOMEN SOFT AND SLIGHTLY DISTENDED. G-TUBE IN PLACE. RUNNING GLUCERNA 1.2 @ 60 CC/HR. NO RESIDUAL NOTED. PT HAS ZARATE CATHETER FLOWING TO GRAVITY. URINE DOMINGO AND CLEAR. PT HAS FLEXISEAL IN PLACE WITH LIQUID BROWN STOOL IN BAG. PT HAS SACRAL WOUND. FOAM DRESSING IN PLACE. CALL LIGHT WITHIN REACH. SAFETY PRECAUTIONS IN PLACE. BED LOCKED IN LOWEST POSITION. WILL CONTINUE TO MONITOR.
[2020-09-14] MEDS: ENOXAPARIN SODIUM 30 MG/0.3 ML SYRINGE SUBCUT SCH (21:15)
[2020-09-14] MEDS: TAMSULOSIN HCL 0.4 MG CAP GT SCH (21:17)
[2020-09-15] VITALS (34 sets, daily range): BP systolic 109–136
[2020-09-15] MEDS: INSULIN REGULAR, HUMAN 100 UNITS/ML, 10 ML VIAL (humuLIN R) SUBCUT PRN ×3 (01:20→18:45)
[2020-09-15] MEDS: metroNIDAZOLE 500 mg/NS 100 ML IV SCH ×3 (05:39→22:02)
[2020-09-15] MEDS: D5/0.45 NS 1,000 ML IV SCH (05:41)
[2020-09-15] MEDS: MORPHINE 2 MG/ML INJ. SYRINGE IVP PRN ×2 (05:54→22:03)
[2020-09-15 07:09] LABS: BASOPHILS % (AUTO) 0.3 % (0.0-2.0); EOSINOPHILS % (AUTO) 0.3 % (0.0-4.0); HEMATOCRIT 29.5 % (36-54); HEMOGLOBIN 9.3 g/dL (14.0-18.0); LYMPHOCYTES # (AUTO) 1.2 K/uL (1.0-5.5); LYMPHOCYTES % (AUTO) 18.4 % (20.5-51.5); MEAN CORPUSCULAR HEMOGLOBIN 26 pg (27-31); MEAN CORPUSCULAR HGB CONC 32 % (32-36); MEAN CORPUSCULAR VOLUME 81 fL (79.0-98.0); MONOCYTES # (AUTO) 0.6 K/uL (0.0-1.0); MONOCYTES % (AUTO) 9.5 % (1.7-9.3); NEUTROPHILS # (AUTO) 4.6 K/uL (1.8-7.7); NEUTROPHILS % (AUTO) 71.5 % (40.0-70.0); PLATELET COUNT (AUTO) 349 K/uL (130-430); RED BLOOD CELL COUNT(AUTO) 3.64 MIL/uL (4.2-6.2); RED CELL DISTRIBUTION WIDTH 19.4 % (9.0-15.0); WHITE BLOOD COUNT (AUTO) 6.4 K/uL (4.8-10.8)
--- NOTE | 2020-09-15 07:10 | NUR ---
Recieved patient and endorsed report from NOC shift nurse. In bed with side rails x 3 up. Call light with in reach.
--- NOTE | 2020-09-15 07:23 | NUR ---
CLOSING NOTE PT LAYING IN BED SLEEPING. NO SIGNS OR SYMPTOMS OF DISTRESS NOTED. SBAR REPORT GIVEN TO RIDGE MCINTOSH. CARE ENDORSED.
[2020-09-15 07:26] LABS: ANION GAP 5 (5-15); CALCIUM 7.2 mg/dL (8.4-11.0); CHLORIDE 104 mmol/L (98-107); CREATININE 1.45 mg/dL (0.55-1.30); GLUCOSE 158 mg/dL (70-99); PHOSPHORUS 2.7 mg/dL (2.7-4.5); POTASSIUM 3.5 mmol/L (3.5-5.1); SODIUM SERUM 134 mmol/L (136-145); UREA NITROGEN, BLOOD 16 mg/dL (8-21)
[2020-09-15] MEDS: MENTHOL/ZINC OXIDE 113 GM OINT. TP PRN (07:50)
[2020-09-15] MEDS ORDERED: GENTAMICIN 80 mg/50 mL NS 50 ML IV SCH (08:54)
--- NOTE | 2020-09-15 08:57 | NUR ---
Gopi Sanford called, gave update as requested. Educated pros and cons regarding procedure of colectomy and ileostomy, son approved.
--- NOTE | 2020-09-15 09:11 | NUR ---
Reported to MD Doll patient son consent to colectomy and ileostomy surgery, stated will do surgery tomorrow, have 2 units of PRBC, and consent for anesthesiology to be used during procedure.
[2020-09-15] MEDS: VANCOMYCIN HCL ORAL SOLUTION 250 MG/5 ML, 80 ML PO SCH ×4 (09:46→22:08)
[2020-09-15] MEDS: cefTRIAXone 1 GM in D5W 50 ML IV SCH (09:46)
[2020-09-15] MEDS: PANTOPRAZOLE SODIUM 40 MG/VIAL (PROTONIX) IVP SCH ×2 (09:47→22:04)
[2020-09-15] MEDS: MULTIVITAMINS TAB 1 TABLET GT SCH (09:47)
[2020-09-15] MEDS: METOPROLOL TARTRATE 50 MG TABLET GT SCH ×2 (09:47→22:04)
[2020-09-15] MEDS: ASPIRIN 81 MG TAB.CHEW GT SCH (09:47)
[2020-09-15] MEDS: FUROSEMIDE 20 MG/2 ML VIAL IVP SCH (09:48)
[2020-09-15] MEDS: FINASTERIDE 5 MG TABLET (PROSCAR) GT SCH (09:48)
[2020-09-15] MEDS: FIDAXOMICIN 200 MG TABLET GT SCH ×2 (09:48→22:04)
[2020-09-15] MEDS: ALBUMIN HUMAN 25% 50 ML IV SCH ×3 (09:49→22:10)
[2020-09-15] MEDS: DORZOLAMIDE 2% OPHTHALMIC SOLN 5ML OP SCH ×3 (09:50→22:08)
--- NOTE | 2020-09-15 10:10 | NUR ---
Gopi Sanford called back with welder gas tungsten arc Erica Edmonds ([phone]). Gopi Sanford requested surgery be on hold until receiving education from MD and after GI consult. Gopi Sanford also requested Erica be called first to help translate.
--- NOTE | 2020-09-15 10:28 | NUR ---
MD Gonzalez paged. MD Gonzalez called back, informed MD Esparza encouraged GI consult prior to surgery. MD Gonzalez new order MD Yoder for GI consult. Order paged.
--- NOTE | 2020-09-15 12:00 | NUR ---
Called Dr. Yoder with a consult, spoke with Leilani from doctors office
--- NOTE | 2020-09-15 12:08 | NUR ---
Paged Rebecca and reported today's ABGs, new order to decrease SIMV to 14, orders placed. Also paged MD Doll to inform family request to hold off on surgery until approval from GI consult, Tosin from MD Doll's clinic informed MD is currently in surgery but will relay message.
--- NOTE | 2020-09-15 12:10 | NUR ---
CHANGED TO SIMV 14 PER AMALIA.
--- NOTE | 2020-09-15 13:47 | NUR ---
Nutrition F/U RD reviewed pt's current EMR record including diet hx, MD notes, RN notes, pertinent labs/meds/procedures, care trends, and care activity Admitting Diagnosis: Septic shock, ARF Medical History Comment: PMH: HTN, DM, BPH, mild dementia, DJD per physician notes Pt also found w/ severe sepsis w/ shock, acute respiratory failure, dehydration, C[place], moderate malnutrition, anemia per physician notes 08/28/2020 notes: Dementia w/ Alzheimer's type, Metabolic encephalopathy SARS-CoV-2 (PCR) Negative 08/23 SARS-CoV-2 (Rapid) Negative 08/23 Subjective Information: Pt remains in ICU under isolation protocol, and RD visit deferred d/t lack of PPE. Pt s/p trach and PEG placement 09/11. Plans for GI consult as recommended by flight engineer manager prior to Sx. Pt's son had consented for colectomy and ileostomy, but Sx has been held at this time d/t pending GI consult per EMR review and RN report. RN reported that pt has been tolerating TF, and pt had 100 ml of stool output via rectal tube. Physician notes indicate that pt's diarrhea has been improving. Pt would benefit from increase in protein for possible Sx. Current Diet Order/Nutrition Support: Glucerna 1.2 at 60 ml/hr (goal rate), Banatrol TID, Free Water Flush: 100 CC Q8H via GT x3 day Pertinent Medications: vancomycin, MVI, IV ALB, SSI Pertinent Labs: BUN 16 WNL, BG 158 H, POC BG 166 H, Na 134 L Mu scale: 11; RD reviewed Compressed Gas Tester note 09/05; no PIs noted Current % PO N/A, on EN NEW Estimated Energy Expenditure (kcals/day) 1735 kcal/day (REE using PSU 2003b d/t critical illness on vent support) -- minute volume: 9.1/temperature: 37.1 degrees C NEW Estimated Protein Required (g/day) 67-101 gm/day (0.8-1.2 gm/kg CBW for ARF, geriatric status, sepsis, possible Sx) Estimated Fluid Required (l/day) Per physician d/t ARF Problem/Etiology/Signs/Symptoms *MODIFIED* Increased nutritional needs related to metabolic demands as evidenced by estimated nutritional requirements for sepsis and possible Sx. *ongoing Altered nutrition-related labs related to endocrine dysfunction as evidenced by elevated BG and POC BG labs. *ongoing Altered GI function r/t medication interaction AEB diarrhea on antibiotics. *ongoing Expected Outcomes/Goals - Monitor tolerance to EN support w/ goal of pt meeting over 80% of estimated nutritional requirements, labs trending WNL, normal GI function, and skin integrity/wt maintenance Dietitian Recommendations * Recommend continuing Glucerna 1.2 at 60 ml/hr (goal rate), Banatrol TID, Prosource daily, Free Water Flush: 100 CC Q8H via GT Provides: 1788 kcal/day, 101 gm protein/day, and 1159 ml free water/day Meets: 103% of estimated caloric needs and 100% of upper end of estimated protein needs Follow Up High Risk: F/U in 2-3 days
--- NOTE | 2020-09-15 13:53 | NUR ---
Dietitian Recommendations * Recommend continuing Glucerna 1.2 at 60 ml/hr (goal rate), Banatrol TID, Prosource daily, Free Water Flush: 100 CC Q8H via GT Provides: 1788 kcal/day, 101 gm protein/day, and 1159 ml free water/day Meets: 103% of estimated caloric needs and 100% of upper end of estimated protein needs LP, RD Please refer to Nutrition F/U for details.
[2020-09-15] MEDS ORDERED: DIATR MEGLU/DIATRIZ SOD 30 ML SOLUTION PO ONE (14:38)
[2020-09-15] MEDS: ACETAMINOPHEN 325 MG TABLET GT PRN (15:30)
--- NOTE | 2020-09-15 15:45 | NUR ---
GT feeding turned off in preparation for CT scan of the abdomen with contrast. paint technician ordered to give 1 cup every 20 minutes but leave the last cup for CT scan. RT tech stated will come back to peanut picker patient at 1745.
--- NOTE | 2020-09-15 16:05 | NUR ---
Md Yoder at bedside assessing patient, stated no need for a colectomy or ileostomy, will assess abdomen imaging study to verify ordered for today.
--- NOTE | 2020-09-15 16:30 | NUR ---
MD Roblero at bedside assessing patient, requesting c.diff collection. Orders already in place by MD Yoder.
--- NOTE | 2020-09-15 18:00 | NUR ---
Left unit with RT and electrical assembly technician for cat scan on [facility]. Patient on portable tele and 02 saturation monitor.
--- NOTE | 2020-09-15 18:30 | NUR ---
Arrived back from cat scan with assistance from RT and histologist technologist via gurney. Patient placed back in bed with side rails x 3 placed. RT placed patient back on ventilator. Patient tolerated procedure WNL.
[2020-09-15] MEDS: GENTAMICIN 80 mg/50 mL NS 50 ML IV SCH (18:55)
--- NOTE | 2020-09-15 19:05 | NUR ---
OPENING NOTE SBAR REPORT RECEIVED FROM DENISE MCINTOSH. CARE ASSUMED. PT LAYING IN BED. PT ANO X2. PT TRACH TO VENT. TRACH PORTEX 7.0 VENT SETTINGS SIMV 14, FIO2 30, TV 500, PEEP 5, PS 10. TOLERATING VENT SETTINGS WELL. PT SINUS RHYTHM ON MONITOR. PT HAS RIGHT UPPER EXTREMITY PICC LINE RUNNING D5 1/2 NS @ 50 ML/HR. PT HAS 2+ EDEMA TO BILATERAL UPPER AND LOWER EXTREMITIES. ABDOMEN SOFT AND SLIGHTLY DISTENDED. G-TUBE IN PLACE. RUNNING GLUCERNA 1.2 @ 60 CC/HR. NO RESIDUAL NOTED. PT HAS ZARATE CATHETER FLOWING TO GRAVITY. URINE DOMINGO AND CLEAR. PT HAS FLEXISEAL IN PLACE WITH LIQUID BROWN STOOL IN BAG. PT HAS SACRAL WOUND. FOAM DRESSING IN PLACE. CALL LIGHT WITHIN REACH. SAFETY PRECAUTIONS IN PLACE. BED LOCKED IN LOWEST POSITION. WILL CONTINUE TO MONITOR.
--- NOTE | 2020-09-15 19:20 | NUR ---
Endorsed patient and gave report to NOC shift nurse. Patient in bed with side rails x 3 up. Call light with in reach.
[2020-09-15] MEDS: TAMSULOSIN HCL 0.4 MG CAP GT SCH (22:04)
[2020-09-15] MEDS: ENOXAPARIN SODIUM 30 MG/0.3 ML SYRINGE SUBCUT SCH (22:05)
[2020-09-16] VITALS (36 sets, daily range): BP systolic 89–140
[2020-09-16] MEDS: INSULIN REGULAR, HUMAN 100 UNITS/ML, 10 ML VIAL (humuLIN R) SUBCUT PRN ×2 (01:03→12:57)
[2020-09-16] MEDS: D5/0.45 NS 1,000 ML IV SCH ×3 (05:53→22:05)
[2020-09-16] MEDS: metroNIDAZOLE 500 mg/NS 100 ML IV SCH ×3 (05:53→21:49)
[2020-09-16 06:05] LABS: BASOPHILS % (AUTO) 0.3 % (0.0-2.0); EOSINOPHILS % (AUTO) 0.4 % (0.0-4.0); HEMOGLOBIN 9.1 g/dL (14.0-18.0); LYMPHOCYTES # (AUTO) 1.2 K/uL (1.0-5.5); LYMPHOCYTES % (AUTO) 19.7 % (20.5-51.5); MEAN CORPUSCULAR HEMOGLOBIN 26 pg (27-31); MEAN CORPUSCULAR HGB CONC 32 % (32-36); MEAN CORPUSCULAR VOLUME 80 fL (79.0-98.0); MONOCYTES # (AUTO) 0.6 K/uL (0.0-1.0); MONOCYTES % (AUTO) 9.9 % (1.7-9.3); NEUTROPHILS # (AUTO) 4.2 K/uL (1.8-7.7); NEUTROPHILS % (AUTO) 69.7 % (40.0-70.0); PLATELET COUNT (AUTO) 305 K/uL (130-430); RED BLOOD CELL COUNT(AUTO) 3.49 MIL/uL (4.2-6.2); RED CELL DISTRIBUTION WIDTH 19.6 % (9.0-15.0)
[2020-09-16] MEDS: MORPHINE 2 MG/ML INJ. SYRINGE IVP PRN ×5 (06:06→22:06)
[2020-09-16 06:18] LABS: ANION GAP 7 (5-15); CALCIUM 7.4 mg/dL (8.4-11.0); CHLORIDE 103 mmol/L (98-107); GLUCOSE 150 mg/dL (70-99); PHOSPHORUS 2.8 mg/dL (2.7-4.5); POTASSIUM 3.5 mmol/L (3.5-5.1); SODIUM SERUM 136 mmol/L (136-145); UREA NITROGEN, BLOOD 18 mg/dL (8-21)
--- NOTE | 2020-09-16 07:20 | NUR ---
Endorsed report and patient from [facility] shift nurse. Patient in bed sleeping with side rails x 3 up. Call light with in reach.
--- NOTE | 2020-09-16 07:26 | NUR ---
CLOSING NOTE PT LAYING IN BED SLEEPING. NO SIGNS OR SYMPTOMS OF DISTRESS NOTED. SBAR REPORT GIVEN TO RIDGE MCINTOSH. CARE ENDORSED.
--- NOTE | 2020-09-16 07:27 | NUR ---
Stool sample collected from NOC shift handed to care worker to take back to lab for c.diff testing.
--- NOTE | 2020-09-16 07:40 | NUR ---
MD Monroy at bedside assessing patient.
[2020-09-16] MEDS: ACETAMINOPHEN 325 MG TABLET GT PRN (08:30)
--- NOTE | 2020-09-16 08:30 | NUR ---
MD Esparza at bedside assessing patient.
[2020-09-16] MEDS: FINASTERIDE 5 MG TABLET (PROSCAR) GT SCH (08:49)
[2020-09-16] MEDS: cefTRIAXone 1 GM in D5W 50 ML IV SCH (08:49)
[2020-09-16] MEDS: MULTIVITAMINS TAB 1 TABLET GT SCH (08:49)
[2020-09-16] MEDS: FUROSEMIDE 20 MG/2 ML VIAL IVP SCH (08:50)
[2020-09-16] MEDS: DORZOLAMIDE 2% OPHTHALMIC SOLN 5ML OP SCH ×3 (08:50→22:15)
[2020-09-16] MEDS: PANTOPRAZOLE SODIUM 40 MG/VIAL (PROTONIX) IVP SCH ×2 (08:50→21:49)
[2020-09-16] MEDS: VANCOMYCIN HCL ORAL SOLUTION 250 MG/5 ML, 80 ML PO SCH ×4 (08:51→21:50)
[2020-09-16] MEDS: ASPIRIN 81 MG TAB.CHEW GT SCH (08:52)
[2020-09-16] MEDS: METOPROLOL TARTRATE 50 MG TABLET GT SCH ×2 (08:53→21:49)
[2020-09-16] MEDS: FIDAXOMICIN 200 MG TABLET GT SCH ×2 (09:32→21:50)
[2020-09-16] MEDS: MENTHOL/ZINC OXIDE 113 GM OINT. TP PRN (12:05)
[2020-09-16] MEDS ORDERED: BALSAM PERU/CASTOR OIL 60 GM OINT...G. TP SCH (15:45)
[2020-09-16] MEDS: GENTAMICIN 80 mg/50 mL NS 50 ML IV SCH (17:02)
[2020-09-16] MEDS: TAMSULOSIN HCL 0.4 MG CAP GT SCH (21:49)
[2020-09-16] MEDS: ENOXAPARIN SODIUM 30 MG/0.3 ML SYRINGE SUBCUT SCH (21:50)
[2020-09-17] VITALS (33 sets, daily range): BP systolic 104–138
[2020-09-17] MEDS: INSULIN REGULAR, HUMAN 100 UNITS/ML, 10 ML VIAL (humuLIN R) SUBCUT PRN ×3 (00:24→12:40)
[2020-09-17] MEDS: metroNIDAZOLE 500 mg/NS 100 ML IV SCH ×3 (06:09→22:05)
[2020-09-17] MEDS: MORPHINE 2 MG/ML INJ. SYRINGE IVP PRN ×2 (06:14→22:07)
[2020-09-17 07:07] LABS: BASOPHILS % (AUTO) 0.6 % (0.0-2.0); EOSINOPHILS % (AUTO) 0.3 % (0.0-4.0); HEMATOCRIT 27.7 % (36-54); HEMOGLOBIN 9.1 g/dL (14.0-18.0); LYMPHOCYTES # (AUTO) 1.1 K/uL (1.0-5.5); LYMPHOCYTES % (AUTO) 14.9 % (20.5-51.5); MEAN CORPUSCULAR HEMOGLOBIN 26 pg (27-31); MEAN CORPUSCULAR HGB CONC 33 % (32-36); MEAN CORPUSCULAR VOLUME 80 fL (79.0-98.0); MONOCYTES # (AUTO) 0.6 K/uL (0.0-1.0); MONOCYTES % (AUTO) 8.6 % (1.7-9.3); NEUTROPHILS # (AUTO) 5.6 K/uL (1.8-7.7); NEUTROPHILS % (AUTO) 75.6 % (40.0-70.0); PLATELET COUNT (AUTO) 320 K/uL (130-430); RED BLOOD CELL COUNT(AUTO) 3.45 MIL/uL (4.2-6.2); RED CELL DISTRIBUTION WIDTH 19.1 % (9.0-15.0); WHITE BLOOD COUNT (AUTO) 7.4 K/uL (4.8-10.8)
[2020-09-17 07:40] LABS: ANION GAP 9 (5-15); CALCIUM 7.3 mg/dL (8.4-11.0); CHLORIDE 104 mmol/L (98-107); CREATININE 1.61 mg/dL (0.55-1.30); GLUCOSE 156 mg/dL (70-99); POTASSIUM 3.5 mmol/L (3.5-5.1); SODIUM SERUM 136 mmol/L (136-145); UREA NITROGEN, BLOOD 20 mg/dL (8-21)
--- NOTE | 2020-09-17 07:54 | NUR ---
CLOSING NOTE PT LAYING IN BED. NO SIGNS AND SYMPTOMS OF DISTRESS NOTED. SBAR REPORT GIVEN TO JORDAN MCINTOSH. CARE ENDORSED.
--- NOTE | 2020-09-17 07:56 | NUR ---
CLOSING NOTE PT LAYING IN BED. NO SIGNS AND SYMPTOMS OF DISTRESS NOTED. SBAR REPORT GIVEN TO JORDAN MCINTOSH. CARE ENDORSED.
--- NOTE | 2020-09-17 08:00 | NUR ---
A/OX2. PT TRACH TO VENT. TRACH PORTEX 7.0 VENT, SIMV 14, FIO2 30, TV 500, PEEP 5, PS 10. V/S STABLE, SR ON MONITOR. PT PICC LINE AT RIGHT UPPER ARM RUNNING D5 1/2 NS @ 50 ML/HR. G-TUBE IN PLACE INFUSING GLUCERNA 1.2 @ 60 CC/HR. NO RESIDUAL NOTED. F/C IN PLACE, COLLECTING URINE, WHICH IS DOMINGO AND CLEAR. PT HAS FLEXISEAL IN PLACE WITH LIQUID BROWN STOOL IN BAG. CALL LIGHT WITHIN REACH. BED LOCKED IN LOWEST POSITION WITH BED ALARM ON. WILL CONTINUE TO MONITOR.
[2020-09-17] MEDS: DORZOLAMIDE 2% OPHTHALMIC SOLN 5ML OP SCH ×3 (08:57→21:45)
[2020-09-17] MEDS: FUROSEMIDE 20 MG/2 ML VIAL IVP SCH (08:57)
[2020-09-17] MEDS: METOPROLOL TARTRATE 50 MG TABLET GT SCH ×2 (08:58→22:06)
[2020-09-17] MEDS: FIDAXOMICIN 200 MG TABLET GT SCH ×2 (08:58→22:05)
[2020-09-17] MEDS: FINASTERIDE 5 MG TABLET (PROSCAR) GT SCH (08:58)
[2020-09-17] MEDS: ASPIRIN 81 MG TAB.CHEW GT SCH (08:58)
[2020-09-17] MEDS: MULTIVITAMINS TAB 1 TABLET GT SCH (08:59)
[2020-09-17] MEDS: PANTOPRAZOLE SODIUM 40 MG/VIAL (PROTONIX) IVP SCH ×2 (08:59→22:05)
[2020-09-17] MEDS: cefTRIAXone 1 GM in D5W 50 ML IV SCH (09:00)
[2020-09-17] MEDS: VANCOMYCIN HCL ORAL SOLUTION 250 MG/5 ML, 80 ML PO SCH ×4 (09:50→21:45)
--- NOTE | 2020-09-17 10:20 | NUR ---
ORAL CARE IS PROVIDED TO PATIENT. TOLERATED WITHOUT DISTRESS.
--- NOTE | 2020-09-17 12:00 | NUR ---
BS 151. 2 units of RI will be given
--- NOTE | 2020-09-17 15:00 | NUR ---
PATIENT HAD A BM. PATIENT IS CLEANED, TURNED AND REPOSITIONED FOR COMFORT.
--- NOTE | 2020-09-17 18:00 | NUR ---
BLOOD SUGAR 145. NO COVERAGE NEEDED.
[2020-09-17] MEDS: GENTAMICIN 80 mg/50 mL NS 50 ML IV SCH (18:16)
[2020-09-17] MEDS: D5/0.45 NS 1,000 ML IV SCH (18:17)
[2020-09-17] MEDS: TAMSULOSIN HCL 0.4 MG CAP GT SCH (22:05)
[2020-09-17] MEDS: ENOXAPARIN SODIUM 30 MG/0.3 ML SYRINGE SUBCUT SCH (22:06)
--- NOTE | 2020-09-17 22:25 | NUR ---
MD UPDATE MD BUTTS AT BEDSIDE. NO NEW ORDERS. WILL CONTINUE TO MONITOR.
[2020-09-18] VITALS (35 sets, daily range): BP systolic 105–153
[2020-09-18] MEDS: INSULIN REGULAR, HUMAN 100 UNITS/ML, 10 ML VIAL (humuLIN R) SUBCUT PRN ×2 (01:02→17:54)
[2020-09-18 06:26] LABS: BASOPHILS % (AUTO) 0.4 % (0.0-2.0); EOSINOPHILS % (AUTO) 0.5 % (0.0-4.0); HEMATOCRIT 28.3 % (36-54); LYMPHOCYTES # (AUTO) 1.6 K/uL (1.0-5.5); LYMPHOCYTES % (AUTO) 27.9 % (20.5-51.5); MEAN CORPUSCULAR HEMOGLOBIN 26 pg (27-31); MEAN CORPUSCULAR HGB CONC 32 % (32-36); MEAN CORPUSCULAR VOLUME 81 fL (79.0-98.0); MONOCYTES # (AUTO) 0.6 K/uL (0.0-1.0); MONOCYTES % (AUTO) 10.1 % (1.7-9.3); NEUTROPHILS # (AUTO) 3.6 K/uL (1.8-7.7); NEUTROPHILS % (AUTO) 61.1 % (40.0-70.0); PLATELET COUNT (AUTO) 305 K/uL (130-430); RED BLOOD CELL COUNT(AUTO) 3.48 MIL/uL (4.2-6.2); RED CELL DISTRIBUTION WIDTH 19.1 % (9.0-15.0); WHITE BLOOD COUNT (AUTO) 5.9 K/uL (4.8-10.8)
[2020-09-18] MEDS: metroNIDAZOLE 500 mg/NS 100 ML IV SCH ×3 (06:46→21:55)
[2020-09-18 06:59] LABS: ALANINE AMINOTRANSFERASE 6 U/L (12-78); ALBUMIN 1.8 g/dL (3.4-4.8); ANION GAP 4 (5-15); ASPARTATE AMINOTRANSFERASE 10 U/L (10-37); CALCIUM 7.5 mg/dL (8.4-11.0); CHLORIDE 104 mmol/L (98-107); GLUCOSE 150 mg/dL (70-99); POTASSIUM 3.8 mmol/L (3.5-5.1); SODIUM SERUM 135 mmol/L (136-145); TOTAL BILIRUBIN 0.3 mg/dL (0.0-1.0); UREA NITROGEN, BLOOD 20 mg/dL (8-21)
--- NOTE | 2020-09-18 07:34 | NUR ---
CLOSING NOTE PT LAYING IN BED. NO SIGNS AND SYMPTOMS OF DISTRESS NOTED. SBAR REPORT GIVEN TO MEG MCINTOSH. CARE ASSUMED.
--- NOTE | 2020-09-18 07:50 | NUR ---
AM ASSESSMENT. PT AFEBRILE, EYES CLOSED, EXPLAINED PROCEDURE TO PT, WRISTS RESTRAINTS OFF AND ON, ORAL HYGIENE RENDERED, MOVES HIS ARM BUT ALLOWED TO PERFORM NURSING CARE, GENERALIZED EDEMA, FLEXISEAL IN PLACE, ZARATE CATHETER DRAINING, ON IVF D51/2 NS AT 50 ML PER HR, VENTILATOR ON SIMV MODE.
--- NOTE | 2020-09-18 08:40 | NUR ---
ABG. 2 R.T. AT BEDSIDE, ABG DRAWN, PT UNCOOPERATIVE.
[2020-09-18] MEDS: cefTRIAXone 1 GM in D5W 50 ML IV SCH (09:46)
[2020-09-18] MEDS: ASPIRIN 81 MG TAB.CHEW GT SCH (09:46)
[2020-09-18] MEDS: PANTOPRAZOLE SODIUM 40 MG/VIAL (PROTONIX) IVP SCH ×2 (09:46→21:54)
[2020-09-18] MEDS: METOPROLOL TARTRATE 50 MG TABLET GT SCH ×2 (09:46→21:54)
[2020-09-18] MEDS: MULTIVITAMINS TAB 1 TABLET GT SCH (09:46)
[2020-09-18] MEDS: FIDAXOMICIN 200 MG TABLET GT SCH ×2 (09:46→22:02)
[2020-09-18] MEDS: FUROSEMIDE 20 MG/2 ML VIAL IVP SCH (09:47)
[2020-09-18] MEDS: MENTHOL/ZINC OXIDE 113 GM OINT. TP SCH (09:47)
[2020-09-18] MEDS: DORZOLAMIDE 2% OPHTHALMIC SOLN 5ML OP SCH ×3 (09:48→22:02)
[2020-09-18] MEDS: VANCOMYCIN HCL ORAL SOLUTION 250 MG/5 ML, 80 ML PO SCH ×4 (09:50→21:00)
[2020-09-18] MEDS: D5/0.45 NS 1,000 ML IV SCH (10:13)
[2020-09-18] MEDS: FINASTERIDE 5 MG TABLET (PROSCAR) GT SCH (10:50)
--- NOTE | 2020-09-18 13:54 | NUR ---
Nutrition F/U RD reviewed pt's current EMR record including diet hx, MD notes, RN notes, pertinent labs/meds/procedures, care trends, and care activity Admitting Diagnosis: Septic shock, ARF Medical History Comment: PMH: HTN, DM, BPH, mild dementia, DJD per physician notes Pt also found w/ severe sepsis w/ shock, acute respiratory failure, dehydration, [place], moderate malnutrition, anemia per physician notes 08/28/2020 MD notes: Dementia w/ Alzheimer's type, Metabolic encephalopathy SARS-CoV-2 (PCR) Negative 08/23 SARS-CoV-2 (Rapid) Negative 08/23, 09/11 Subjective Information: Pt remains in ICU under isolation protocol, and RD visit deferred d/t lack of PPE. Pt continues to have episodes of diarrhea, on rectal tube and pt leaks around the tube per MD notes. GI noted that pt w/ fulminant C.diff and GI does not recommend total colectomy. Per EMR, 150cc output via rectal tube this morning. RD s/w pt's primary RN who reported of 70cc residual this morning. Banatrol is ordered but has not been delivered per RN. RD notified [facility] staff. Pt may benefit from a low residue EN formula, will switch to Vital AF. Current Diet Order/Nutrition Support: Glucerna 1.2 at 60 ml/hr (goal rate), Prosource daily, Banatrol TID, Free Water Flush: 100 CC Q8H via GT x3 days Pertinent Medications: vancomycin, MVI, SSI, Lasix, Lovenox Pertinent Labs: 09/18 Na 135L, K 3.8WNL, BG 150H, POC BG 146H, BUN 20WNL, CRE 1.6H Mu scale: 12; RD reviewed Relay Dispatcher note 09/05: Intertrigo w/ erythema and MASD to Gluteal sulcus and Right buttock. Current % PO N/A, on EN NEW Estimated Energy Expenditure (kcals/day) 1829 kcal/day (REE using PSU 2002b d/t critical illness on vent support) -- minute volume: 7.3/temperature: 38 degrees C NEW Estimated Protein Required (g/day) 67-101 gm/day (0.8-1.2 gm/kg CBW for ARF, geriatric status, sepsis, possible Sx) Estimated Fluid Required (l/day) Per physician d/t ARF Problem/Etiology/Signs/Symptoms *MODIFIED* Increased nutritional needs related to metabolic demands as evidenced by estimated nutritional requirements for sepsis and possible Sx. *ongoing Altered nutrition-related labs related to endocrine dysfunction as evidenced by elevated BG and POC BG labs. *ongoing Altered GI function r/t pathophysiological factors AEB diarrhea, C.diff. (*modified) Expected Outcomes/Goals - Monitor tolerance to EN support w/ goal of pt meeting over 80% of estimated nutritional requirements, labs trending WNL, normal GI function, and skin integrity/wt maintenance Dietitian Recommendations * Recommend Vital AF 1.2 at 55ml/hr (goal rate), Ismael BID, Banatrol TID, FWF 100cc Q8H via GT Provides: 1744 kcal/day, 104 gm protein/day, and 1370 ml free water/day Meets: 95% of estimated caloric needs and 103% of upper end of estimated protein needs Follow Up High Risk: F/U in 2-3 days
--- NOTE | 2020-09-18 14:09 | NUR ---
Dietitian Recommendations * Recommend Vital AF 1.2 at 55ml/hr (goal rate), Ismael BID, Banatrol TID, FWF 100cc Q8H via GT Provides: 1744 kcal/day, 104 gm protein/day, and 1370 ml free water/day Meets: 95% of estimated caloric needs and 103% of upper end of estimated protein needs Please see Nutrition F/U note for details. SNF, RD
--- NOTE | 2020-09-18 18:15 | NUR ---
NURSING. TURNED PT GENTLY TO HIS SIDE, PILLOW PLACED TO HIS BACK, AND LOWER LEGS, HEAD OF BED ELEVATED, FEEDING VIA GTUBE VITAL AF, CONTINUE TO MONITOR PT.
--- NOTE | 2020-09-18 19:20 | NUR ---
Pt report received. Pt opens eyes to verbal and tactile stimulation, able to follow commands. Bilat soft wrist restraints in place. Pt Trach to Vent with vent settings: SIMV, 14, 500, 30%, 5, PS 10. Endotracheal suction provided with scant amount of thick white sputum removed. Respirations even. RUE PICC secure with D5 1/2 NS at 50 mL/hr. Tube feedings of Vital A/F infusing at 55 mL/hr. 1+ edema generalized to all extremities. Edema and excoriation noted to scrotum, supported with pillow cases. F/C draining yellow and sedimented urine.
--- NOTE | 2020-09-18 21:30 | NUR ---
Dr. Fernandez present to assess pt.
[2020-09-18] MEDS: TAMSULOSIN HCL 0.4 MG CAP GT SCH (21:53)
[2020-09-18] MEDS: MORPHINE 2 MG/ML INJ. SYRINGE IVP PRN (21:58)
--- NOTE | 2020-09-18 21:58 | NUR ---
Pt grimmacing with turning. Pt acknowledges he has pain and localizes to groin area. Morphine 2 mg given IVP.
[2020-09-18] MEDS: ENOXAPARIN SODIUM 30 MG/0.3 ML SYRINGE SUBCUT SCH (21:59)
[2020-09-19] VITALS (30 sets, daily range): BP systolic 125–159
[2020-09-19] MEDS: INSULIN REGULAR, HUMAN 100 UNITS/ML, 10 ML VIAL (humuLIN R) SUBCUT PRN ×4 (00:18→18:19)
--- NOTE | 2020-09-19 01:00 | NUR ---
Pt had large amount of brown diarrhea around flexiseal. Pt cleaned, linens changed, new gown applied. Sacral wound white/pink with yellow drainage to old dsg. Wound cleaned with NS, pat dry with gauze, veneflex applied to wound bed and calmoseptine applied to periwound area. Covered with foam dsg. Flexiseal tubing and bag full of gas. Bag changed with total output of 550 mL. Pt tolerated fair.
[2020-09-19] MEDS: MORPHINE 2 MG/ML INJ. SYRINGE IVP PRN ×2 (06:40→13:51)
--- NOTE | 2020-09-19 06:40 | NUR ---
Morphine 2 mg given IVP for pain with FLACC 8/10. Pt localizes pain to groin.
[2020-09-19] MEDS: metroNIDAZOLE 500 mg/NS 100 ML IV SCH ×2 (06:41→13:52)
--- NOTE | 2020-09-19 07:20 | NUR ---
Pt report given to receiving RN. Pt resting quietly with eyes closed, VSS, NAD. No change in Vent settings. Vital A/F at 50 mL/hr to G-tube, tolerating well. D5 1/2 NS continues to infuse at 50 mL/hr to RUE PICC. F/C patent and secure with total U/O of 570 mL this shift. No further BM noted to chucks, scant amount of brown loose stool to Flexiseal bag.
[2020-09-19] MEDS: D5/0.45 NS 1,000 ML IV SCH (07:39)
[2020-09-19] MEDS ORDERED: LOPERAMIDE HCL 2 MG CAPSULE PO PRN ×2 (08:00→08:45)
--- NOTE | 2020-09-19 08:00 | NUR ---
Initial notes with eyes closed, withdraws to pain. tolerating to vent settings and feeding well. repositioned. oral care and suctioning done. On bilateral wrist restraints. No acute distress noted. Will continue to monitor.
[2020-09-19] MEDS: VANCOMYCIN HCL ORAL SOLUTION 250 MG/5 ML, 80 ML PO SCH (08:39)
[2020-09-19] MEDS: ASPIRIN 81 MG TAB.CHEW GT SCH (08:40)
[2020-09-19] MEDS: MULTIVITAMINS TAB 1 TABLET GT SCH (08:40)
[2020-09-19] MEDS: PANTOPRAZOLE SODIUM 40 MG/VIAL (PROTONIX) IVP SCH (08:40)
[2020-09-19] MEDS: FUROSEMIDE 20 MG/2 ML VIAL IVP SCH (08:41)
[2020-09-19] MEDS: METOPROLOL TARTRATE 50 MG TABLET GT SCH (08:41)
[2020-09-19] MEDS: cefTRIAXone 1 GM in D5W 50 ML IV SCH (08:42)
[2020-09-19] MEDS: FIDAXOMICIN 200 MG TABLET GT SCH (08:42)
[2020-09-19] MEDS: FINASTERIDE 5 MG TABLET (PROSCAR) GT SCH (08:43)
[2020-09-19] MEDS: MENTHOL/ZINC OXIDE 113 GM OINT. TP SCH (08:44)
[2020-09-19] MEDS: DORZOLAMIDE 2% OPHTHALMIC SOLN 5ML OP SCH ×2 (10:17→13:50)
--- NOTE | 2020-09-19 10:20 | NUR ---
Discharge Planning: DCP faxed pt referral to [facility] ([phone]) DCP to follow up Addendum: 09/19/20 at 1338 by Anu Oates DP DCP followed up with [facility] ([phone]) pat can go to [place] or [place]. DCP made CM aware. Addendum: 09/19/20 at 1450 by Anu Oates DP DCP arranged transportation with [facility] ([phone]) ACLS with RT 7:30pm to [facility] # to report [phone]. CM took patient packet to nurse station.
--- NOTE | 2020-09-19 12:00 | NUR ---
notes Open his eyes, and follows command. No acute distress noted.
--- NOTE | 2020-09-19 13:35 | NUR ---
WOUND RE-EVALUATION: Late note for 09/19/20 at 1335 secondary to patient care. Patient received in a [place] Bed with an Isoflex CHANTAL mattress with low air loss therapy, awake, nonverbal, nonresponsive to verbal commands, intubated. Patient is unable to turn in bed independently. Mu Score is a 12. Past Medical History: Diabetes Mellitus, Hypertension, mild Dementia, Benign Prostatic Hypertrophy, Degenerative Joint Disease. Upon arrival to the E.D., the patient was in Acute Respiratory Failure, Sepsis, and Metabolic Acidosis. Intrinsic factors that delay wound healing: Diabetes Mellitus, Acute Respiratory Failure, Sepsis, Metabolic Acidosis, severe Hypoalbuminemia, Hyperglycemia. Extrinsic factors that delay wound healing: Decreased mobility. Fecal management system is in place. Wound Assessment: 1. Gluteal sulcus/Right Buttock: Intertrigo with erythema and MASD. MASD has grown due to loose stool. Wound care performed by night stocker nurse. Dressing not removed for assessment secondary to doing so would decrease wound temperature and retard wound healing rate. Recommend continue: Cleanse wound with normal saline. Apply Calmoseptine cream to open area and perimeter. Apply Venelex ointment to any portion of open tissue not covered by Calmoseptine cream. Cover with Sacral foam dressing. Perform wound care daily, and as needed for dressing soiling or dislodgement. 2. Upper back: Blanchable redness. 3. Pelvic area: Blanchable redness. Recommend continue: Reposition patient side to side only every 2 hours with one pillow underneath trunk and one pillow underneath pelvis at all times. 4. Right Heel: Blanchable redness. Recommend continue: Elevate, offload and float bilateral heels with one pillow lengthwise under each extremity at all times. Also recommend continue: Reposition patient side to side only every hour with 1 pillow underneath pelvis and one pillow underneath trunk on each side of patient -make sure that pillows touch each other (to turn patient side to side place one pillow underneath both pillows on 1 side for one hour, then place 1 pillow underneath both pillows on the other side for one hour). Off-load pressure areas with pillows for pressure re-distribution. Offload, elevate and float bilateral heels with pillows. Perform skin care and monitor skin integrity Q shift. Use Calmoseptine cream on buttocks and other moisture susceptible areas QID and as needed for soiling. Maintain patient on a low air-loss mattress.
--- NOTE | 2020-09-19 14:00 | NUR ---
NOTES Awake, asked patient if he is in pain, patient nodded. medicated with morphine as ordered.
--- NOTE | 2020-09-19 14:22 | NUR ---
Spoke w/ patient's son and he agreed to transfer to [place]-He will need to be notified w/ final facility pt is transferred to.
--- NOTE | 2020-09-19 14:42 | NUR ---
Spoke to patient's son-he agreed to transfer to [facility] ICU # 5-He was given address and telephone # for the facility-he was informed pt will be transferred at 7 PM tonight.
--- NOTE | 2020-09-19 16:36 | NUR ---
Notes Resting comfortably at this time. repositioned, no distress noted.
--- NOTE | 2020-09-19 18:47 | NUR ---
Notes- Called [facility] to give report but they want to take report at 1930. will endorse.
--- NOTE | 2020-09-19 19:20 | NUR ---
OPENING NOTE: Received SBAR report from off coming RN for continuity of care. Was endorsed to give SBAR report to RN at [facility] over the phone for continuity of care post transfer.
--- NOTE | 2020-09-19 19:30 | NUR ---
TRANSPORT TO [facility] Transport team with EMS and RN at bedside, provided SBAR report for continuity of care. Pt ready to be transferred following ACLS protocol.
--- NOTE | 2020-09-19 20:15 | NUR ---
Provided telephone SBAR report for continuity of care to Jamal MCINTOHS from [facility]. All questions were addressed.
[2020-09-19] MEDS ORDERED: CHOLESTYRAMINE/SUCROSE 4 GM/PACKET PO SCH (21:00)
== END 2020-09-19 19:50 | DRG 4 ==
LOC: SED 17:36 → SIC 20:51 → STU 08-25 13:58 → SIC 08-25 14:06
PROVIDERS: ADMIT Family Medicine; ATTEND Family Medicine
PROC: 5A1955Z Respiratory Ventilation, Greater than 96 Consecutive Hours (ICD-10-PCS; 2020-09-04)
PROC: 30233N1 Transfusion of Nonautologous Red Blood Cells into Peripheral Vein, Percutaneous Approach (ICD-10-PCS; 2020-09-04)
PROC: 0BH17EZ Insertion of Endotracheal Airway into Trachea, Via Natural or Artificial Opening (ICD-10-PCS; 2020-09-04)
PROC: 0DH63UZ Insertion of Feeding Device into Stomach, Percutaneous Approach (ICD-10-PCS; 2020-09-11)
PROC: 0DB68ZX Excision of Stomach, Via Natural or Artificial Opening Endoscopic, Diagnostic (ICD-10-PCS; 2020-09-11)
PROC: 0B113F4 Bypass Trachea to Cutaneous with Tracheostomy Device, Percutaneous Approach (ICD-10-PCS; principal; 2020-09-11 12:30)
DX: A41.51 Sepsis due to Escherichia coli [E. coli] (principal); R65.21 Severe sepsis with septic shock; J96.00 Acute respiratory failure, unspecified whether with hypoxia or hypercapnia; J15.9 Unspecified bacterial pneumonia; J69.0 Pneumonitis due to inhalation of food and vomit; N17.9 Acute kidney failure, unspecified; E44.0 Moderate protein-calorie malnutrition; N13.6 Pyonephrosis; A04.72 Enterocolitis due to Clostridium difficile, not specified as recurrent; D68.59 Other primary thrombophilia; E87.2 Acidosis; J90 Pleural effusion, not elsewhere classified; Z16.12 Extended spectrum beta lactamase (ESBL) resistance; Z16.24 Resistance to multiple antibiotics; E78.5 Hyperlipidemia, unspecified; I10 Essential (primary) hypertension; F03.90 Unspecified dementia, unspecified severity, without behavioral disturbance, psychotic disturbance, mood disturbance, and anxiety; N40.0 Benign prostatic hyperplasia without lower urinary tract symptoms; E86.0 Dehydration; D64.9 Anemia, unspecified; M19.90 Unspecified osteoarthritis, unspecified site; R13.10 Dysphagia, unspecified; D69.6 Thrombocytopenia, unspecified; D63.8 Anemia in other chronic diseases classified elsewhere; B96.4 Proteus (mirabilis) (morganii) as the cause of diseases classified elsewhere; E11.9 Type 2 diabetes mellitus without complications; E66.9 Obesity, unspecified; E87.6 Hypokalemia; I25.10 Atherosclerotic heart disease of native coronary artery without angina pectoris; K31.7 Polyp of stomach and duodenum; Z20.828 Contact with and (suspected) exposure to other viral communicable diseases; Z79.82 Long term (current) use of aspirin; Z79.899 Other long term (current) drug therapy; Z68.24 Body mass index [BMI] 24.0-24.9, adult; Z83.3 Family history of diabetes mellitus; Z86.73 Personal history of transient ischemic attack (TIA), and cerebral infarction without residual deficits; Z87.440 Personal history of urinary (tract) infections; Z93.1 Gastrostomy status
CPT/HCPCS: 36415; 36600; 43247; 70450-TC; 71045; 71250-TC; 78580-TC; 80048; 80053; 80170-TC; 81000-TC; 82550-TC; 82553-TC; 82803-TC; 82962; 83605; 83735-TC; 83880; 84100-TC; 84443-TC; 84484; 85007; 85018-TC; 85025; 85027; 85379; 85610-TC; 85730-TC; 86886; 86900; 86901; 86920; 87040-TC; 87070-TC; 87081; 87086; 87205-TC; 87230-TC; 88305; 88312; 88313; 93005; 93306; 93970; 94002; 94003; 94640; 96361; 96365; 99291; A6209; A9540; C9113; G0482; J0295; J0330; J0696; J1170; J1580; J1650; J1815; J1940; J2001; J2060; J2185; J2250; J2270; J2543; J2704; J3010; J3370; J3480; J3490; J7030; J7040; J7050; J7060; J7120; P9021; P9046; Q9964; U0003